=== PATIENT | male | born 1975 | race Caucasian/White ===

== ENCOUNTER 2020-08-30 07:51 | Outpatient (REF) | payer MEDICARE, MEDICAID, SELFPAY ==
[2020-08-30 09:14] LABS: MANUAL DIFF FLAG NO
[2020-08-30 09:19] LABS: Basophils Absolute Auto 0.1 X10*3/uL (0.0-0.2); Basophils Percent Auto 0.7 % (0-2); Eosinophils Absolute Auto 0.1 X10*3/uL (0.0-0.4); Eosinophils Percent Auto 1.4 % (0-4); Hematocrit 50.2 % (42-52); Hemoglobin 16.3 g/dl (14.0-18.0); Imm Gran Abs Auto 0.02 X10*3/uL (0.00-0.03); Imm Gran Pct Auto 0.2 % (0.0-0.4); Lymphocytes Absolute Auto 2.8 X10*3/uL (1.2-4.9); Lymphocytes Percent Auto 30.7 % (20-40); Mean Corpuscular HGB Conc 32.5 g/dl (31.0-36.0); Mean Corpuscular Hemoglobin 27.9 pg (27.0-33.0); Mean Platelet Volume 12.6 fL (9.4-12.4); Monocytes Absolute Auto 0.8 X10*3/uL (0.1-1.2); Monocytes Percent Auto 8.5 % (2-11); Neutrophils Absolute Auto 5.3 X10*3/uL (2.0-8.3); Neutrophils Percent Auto 58.5 % (45-73); Platelet Count 183 X10*3/uL (160-400); Red Blood Count 5.84 X10*6/uL (4.60-5.80); Red Cell Distribution Width 13.2 % (11.0-16.0)
[2020-08-30 10:02] LABS: Alanine Aminotransferase 30 U/L (0-40); Albumin Level 4.3 g/dL (3.5-5.0); Alkaline Phosphatase 76 U/L (39-117); Anion Gap 10 (12-20); Aspartate Amino Transferase 30 U/L (5-37); Bilirubin Total 0.6 mg/dL (0.0-1.0); Blood Urea Nitrogen 15 mg/dL (9-16); Calcium 9.3 mg/dL (8.4-10.2); Carbon Dioxide 30 mmol/L (22-29); Chloride 99 mmol/L (96-108); Cholesterol 222 mg/dL; Estimated Glomerular Filt Rate > 60; Glucose Fasting 91 mg/dL (60-99); HDL Cholesterol 49 mg/dL; LDL Cholesterol Calculated 140 mg/dl; Potassium 4.4 mmol/l (3.3-5.1); Sodium 135 mmol/L (135-145); Total Protein 7.4 g/dL (6.5-8.0); Triglycerides 169 mg/dL
[2020-08-30 10:23] LABS: T4 Thyroxine 9.3 ug/dL (4.5-12.0); Thyroid Stimulating Hormone 0.88 mIU/mL (0.32-4.0)
[2020-08-30 10:30] LABS: Folate 5.5 ng/mL (> or = 4.0); Vitamin B12 459 pg/mL (200-900)
== END 2020-08-30 07:52 | disposition home or self-care (01) ==
LOC: HO.LAB 07:51
PROVIDERS: PCP Internal Medicine; Visit Provider Internal Medicine
DX: E66.9 Obesity, unspecified (principal); K21.9 Gastro-esophageal reflux disease without esophagitis; G47.00 Insomnia, unspecified; M54.5 Low back pain; E78.00 Pure hypercholesterolemia, unspecified; R73.01 Impaired fasting glucose
CPT/HCPCS: 36415; 80053; 80061; 82607; 82746; 84436; 84443; 85025

== ENCOUNTER 2021-02-21 12:56 | Outpatient (REF) | payer OTHER, SELFPAY ==
--- NOTE | ~2021-02-21 | XR_ITS ---
EXAMINATION: XR HAND, LEFT CLINICAL INFORMATION: Left hand pain COMPARISON: None TECHNIQUE: PA, lateral, and oblique views of the left hand. FINDINGS: There is no evidence of acute fracture or dislocation of the left hand. There are some subchondral cysts seen about the first metacarpal head with some mild adjacent soft tissue swelling. No radiopaque foreign body is seen. Joint spaces are maintained. No significant erosive changes are evident. XR/XR hand LT min 3V IMPRESSION: No acute fracture or dislocation of the left hand. Mild degenerative change first metacarpal phalangeal joint.
== END 2021-02-21 12:57 | disposition home or self-care (01) ==
LOC: HO.HMGCX 12:56
PROVIDERS: PCP Internal Medicine; Visit Provider Hospitalist
DX: M79.642 Pain in left hand (principal)
CPT/HCPCS: 73130

== ENCOUNTER 2021-03-19 10:18 | Outpatient (REF) | payer OTHER, SELFPAY ==
--- NOTE | ~2021-03-19 | FL_ITS ---
EXAMINATION: XR GI SERIES and barium swallow CLINICAL INFORMATION: Gastroesophageal reflux disease COMPARISON: Previous upper GI October 2013 TECHNIQUE: Barium swallow was performed using thin and thick barium and effervescent granules. Barium tablet was also administered. Subsequently, upper GI was performed FINDINGS: The swallowing mechanism is normal. No aspiration or penetration is seen. There is a small sliding-type hiatal hernia with Schatzki ring. There is gastroesophageal reflux. No mass or stricture is seen. The barium tablet passed freely into the stomach. The stomach and duodenum are normal-appearing. No fold thickening, mass, ulcer or stricture is seen. FLUOROSCOPY TIME: 1.3 minutes DOSE AREA PRODUCT: 17 hood per centimeter squared. 37 saved fluoroscopic images. FL/FL upper GI w air w Ba Swallow IMPRESSION: Small sliding hiatal hernia with Schatzki ring. Moderate gastroesophageal reflux. Otherwise unremarkable barium swallow and upper GI.
== END 2021-03-19 10:19 | disposition home or self-care (01) ==
LOC: HO.XRAY 10:18
PROVIDERS: PCP Internal Medicine; Visit Provider Internal Medicine
DX: R13.10 Dysphagia, unspecified (principal)
CPT/HCPCS: 74240; 74246

== ENCOUNTER → 2021-09-27 10:54 | Outpatient (BNVA) | payer OTHER, MEDICARE, SELFPAY | PROVIDERS: Visit Provider Orthopaedic Surgery | DX: M76.61 Achilles tendinitis, right leg (principal); M76.62 Achilles tendinitis, left leg; Z98.890 Other specified postprocedural states | CPT/HCPCS: 99202 ==

== ENCOUNTER → 2021-10-21 09:58 | Outpatient (REF) | payer OTHER, MEDICARE, SELFPAY | LOC: HO.SL 09:58 | PROVIDERS: PCP Internal Medicine; Visit Provider Internal Medicine | DX: G47.00 Insomnia, unspecified (principal) | CPT/HCPCS: 95806 ==

== ENCOUNTER 2022-02-18 13:01 | Outpatient (REF) | payer OTHER, SELFPAY ==
[2022-02-18 13:32] LABS: MANUAL DIFF FLAG NO
[2022-02-18 13:48] LABS: Basophils Absolute Auto 0.1 X10*3/uL (0.0-0.2); Basophils Percent Auto 0.7 % (0-2); Eosinophils Absolute Auto 0.1 X10*3/uL (0.0-0.4); Eosinophils Percent Auto 1.2 % (0-4); Hematocrit 47.5 % (42.0-52.0); Hemoglobin 15.8 g/dl (14.0-18.0); Imm Gran Abs Auto 0.03 X10*3/uL (0.00-0.03); Imm Gran Pct Auto 0.3 % (0.0-0.4); Lymphocytes Absolute Auto 2.5 X10*3/uL (1.2-4.9); Lymphocytes Percent Auto 28.1 % (20-40); Mean Corpuscular HGB Conc 33.3 g/dl (31.0-36.0); Mean Corpuscular Hemoglobin 28.1 pg (27.0-33.0); Mean Corpuscular Volume 84.4 fL (80.0-98.0); Mean Platelet Volume 12.4 fL (9.4-12.4); Monocytes Absolute Auto 0.9 X10*3/uL (0.1-1.2); Neutrophils Absolute Auto 5.3 x10*3/uL (2.0-8.3); Neutrophils Percent Auto 59.7 % (45-73); Platelet Count 182 X10*3/uL (160-400); Red Blood Count 5.63 X10*6/uL (4.60-5.80); White Blood Count 8.9 X10*3/uL (4.8-10.8)
[2022-02-18 14:02] LABS: Estimated Average Glucose 123 mg/dL; Hemoglobin A1c % 5.9 %
[2022-02-18 14:27] LABS: Alanine Aminotransferase 31 U/L (0-40); Albumin Level 4.2 g/dL (3.5-5.0); Alkaline Phosphatase 88 U/L (39-117); Anion Gap 11 (12-20); Aspartate Amino Transferase 22 U/L (5-37); Bilirubin Total 0.5 mg/dL (0.0-1.0); Blood Urea Nitrogen 11 mg/dL (9-16); Carbon Dioxide 29 mmol/L (22-29); Chloride 103 mmol/L (96-108); Cholesterol 223 mg/dL; Estimated Glomerular Filt Rate 56; Glucose Random 122 mg/dL (60-115); HDL Cholesterol 46 mg/dL; LDL Cholesterol Calculated 147 mg/dl; Potassium 5.1 mmol/L (3.3-5.1); Sodium 138 mmol/L (135-145); Total Protein 7.5 g/dL (6.5-8.0); Triglycerides 153 mg/dL
[2022-02-18 14:49] LABS: Free T4 (Free Thyroxine) 1.13 ng/dL (0.71-1.85); Thyroid Stimulating Hormone 0.92 uIU/mL (0.32-4.0)
[2022-02-18 14:59] LABS: Vitamin B12 418 pg/mL (200-900)
== END 2022-02-18 13:02 | disposition home or self-care (01) ==
LOC: HO.LAB 13:01
PROVIDERS: PCP Internal Medicine; Visit Provider Internal Medicine
DX: E78.00 Pure hypercholesterolemia, unspecified (principal); R73.02 Impaired glucose tolerance (oral)
CPT/HCPCS: 36415; 80053; 80061; 82607; 82746; 83036; 84439; 84443; 85025

== ENCOUNTER → 2022-03-20 10:49 | Outpatient (BNVA) | payer OTHER, SELFPAY | PROVIDERS: PCP Internal Medicine; Visit Provider Nurse Practitioner Family | DX: G47.33 Obstructive sleep apnea (adult) (pediatric) (principal) | CPT/HCPCS: 99202 ==

== ENCOUNTER 2022-04-25 10:45 | Outpatient (REF) | payer OTHER, SELFPAY ==
--- NOTE | ~2022-04-25 | XR_ITS ---
EXAMINATION: XR CHEST CLINICAL INFORMATION: Cough. COMPARISON: None TECHNIQUE: 2 views of the chest were obtained. FINDINGS: No significant abnormality is noted involving the heart, lungs, mediastinum, bony thorax or soft tissues. XR/XR chest 2V IMPRESSION: Unremarkable chest examination.
== END 2022-04-25 10:46 | disposition home or self-care (01) ==
LOC: HO.XRAY 10:45
PROVIDERS: PCP Internal Medicine; Visit Provider Internal Medicine
DX: R05.9 Cough, unspecified (principal)
CPT/HCPCS: 71046

== ENCOUNTER → 2022-11-26 08:45 | Outpatient (BNVA) | payer OTHER, SELFPAY | PROVIDERS: PCP Internal Medicine; Visit Provider Nurse Practitioner Family | DX: G47.33 Obstructive sleep apnea (adult) (pediatric) (principal) | CPT/HCPCS: 99212 ==

== ENCOUNTER 2022-12-22 07:35 | Outpatient (REF) | payer OTHER, SELFPAY ==
[2022-12-22 07:45] LABS: MANUAL DIFF FLAG NO
[2022-12-22 08:25] LABS: Basophils Absolute Auto 0.1 X10*3/uL (0.0-0.2); Basophils Percent Auto 1.3 % (0-2); Eosinophils Absolute Auto 0.2 X10*3/uL (0.0-0.4); Eosinophils Percent Auto 2.4 % (0-4); Hematocrit 47.9 % (42.0-52.0); Hemoglobin 15.5 g/dl (14.0-18.0); Imm Gran Abs Auto 0.02 X10*3/uL (0.00-0.03); Imm Gran Pct Auto 0.3 % (0.0-0.4); Lymphocytes Absolute Auto 2.5 X10*3/uL (1.2-4.9); Lymphocytes Percent Auto 34.6 % (20-40); Mean Corpuscular HGB Conc 32.4 g/dl (31.0-36.0); Mean Corpuscular Hemoglobin 27.4 pg (27.0-33.0); Mean Corpuscular Volume 84.8 fL (80.0-98.0); Mean Platelet Volume 12.4 fL (9.4-12.4); Monocytes Absolute Auto 0.8 X10*3/uL (0.1-1.2); Monocytes Percent Auto 11.6 % (2-11); Neutrophils Absolute Auto 3.5 x10*3/uL (2.0-8.3); Neutrophils Percent Auto 49.8 % (45-73); Platelet Count 174 X10*3/uL (160-400); Red Blood Count 5.65 X10*6/uL (4.60-5.80); Red Cell Distribution Width 13.2 % (11.0-16.0); White Blood Count 7.1 X10*3/uL (4.8-10.8)
[2022-12-22 08:35] LABS: Estimated Average Glucose 126 mg/dL
[2022-12-22 08:59] LABS: Alanine Aminotransferase 45 U/L (0-40); Alkaline Phosphatase 77 U/L (39-117); Anion Gap 14 (12-20); Aspartate Amino Transferase 25 U/L (5-37); Bilirubin Total 0.3 mg/dL (0.0-1.0); Blood Urea Nitrogen 11 mg/dL (9-16); Calcium 9.6 mg/dL (8.4-10.2); Carbon Dioxide 28 mmol/L (22-29); Chloride 102 mmol/L (96-108); Cholesterol 219 mg/dL; Estimated Glomerular Filt Rate > 60; Glucose Random 99 mg/dL (60-115); HDL Cholesterol 47 mg/dL; LDL Cholesterol Calculated 139 mg/dl; Potassium 4.6 mmol/L (3.3-5.1); Sodium 139 mmol/L (135-145); Total Protein 6.8 g/dL (6.5-8.0); Triglycerides 169 mg/dL
[2022-12-22 09:20] LABS: Folate 15.1 ng/mL (> or = 4.0); Free T4 (Free Thyroxine) 1.04 ng/dL (0.71-1.85); Prostate Specific Antigen Scr 0.34 ng/mL (<0.05-4.0); Thyroid Stimulating Hormone 0.83 uIU/mL (0.32-4.0); Vitamin B12 655 pg/mL (200-900)
[2022-12-22 09:37] LABS: Appearance Urine Clear; Color Urine Yellow; Glucose Urine UA Negative (Negative); Leukocyte Esterase Urine Negative (Negative); Nitrite Urine Negative (Negative); PH 5.5 (5.0-9.0); Specific Gravity - Urine 1.015 (1.005-1.025); Urine Blood Negative (Negative); Urine Ketones Negative (Negative); Urine Protein Negative (Neg-Trace)
[2022-12-22 09:40] LABS: Bacteria Urine None Seen (None Seen); Hyaline Casts Urine 0-2 /LPF (0-2); RBC Urine 0-2 /HPF (0-2); Squamous Epithelial Cell Urine 0-2 /HPF (0-2); WBC Urine 0-5 /HPF (0-5)
== END 2022-12-22 07:36 | disposition home or self-care (01) ==
LOC: HO.LAB 07:35
PROVIDERS: PCP Internal Medicine; Visit Provider Internal Medicine
DX: Z12.5 Encounter for screening for malignant neoplasm of prostate (principal); N28.9 Disorder of kidney and ureter, unspecified; E78.00 Pure hypercholesterolemia, unspecified
CPT/HCPCS: 36415; 80053; 80061; 81001; 82607; 82746; 83036; 84153; 84439; 84443; 85025

== ENCOUNTER → 2022-12-30 11:36 | Outpatient (REF) | payer OTHER, SELFPAY ==
--- NOTE | ~2022-12-30 | XR_ITS ---
EXAMINATION: XR CHEST 2 VIEWS CLINICAL INFORMATION: Shortness of breath. COMPARISON: Chest radiograph dated 04/25/2022. TECHNIQUE: Frontal and lateral views of the chest were obtained. FINDINGS: The heart, great vessels, pulmonary vasculature and mediastinum are normal. The lungs show no focal infiltrate, effusion or pneumothorax. There is mild elevation of the right hemidiaphragm. There is no acute osseous abnormality. XR/XR chest 2V IMPRESSION: No active cardiopulmonary disease.
--- NOTE | 2022-12-30 11:39 | ECG_ITS ---
Test Reason : sob Blood Pressure : / mmHG Vent. Rate : 077 BPM Atrial Rate : 077 BPM P-R Int : 192 ms QRS Dur : 092 ms QT Int : 370 ms P-R-T Axes : 062 085 050 degrees QTc Int : 418 ms Normal sinus rhythm Normal ECG When compared with ECG of 08-APR-2017 16:08, No significant change was found Referred By: Noé Montaño Electronically Signed By:Aiden Street
== END ==
LOC: HO.CARD 11:36
PROVIDERS: PCP Internal Medicine; Visit Provider Internal Medicine
DX: R06.02 Shortness of breath (principal)
CPT/HCPCS: 71046; 93005

== ENCOUNTER → 2023-01-14 08:53 | Outpatient (REF) | payer OTHER, SELFPAY ==
--- NOTE | 2023-01-14 08:56 | CA_ITS ---
Acquisition Time: 2023-01-14 09:33:25 Total Exercise Time: 00:10:46 Test Indications: sob Medications: see h Protocol: JAGDEEP Max HR: 155 BPM 88% of Pred: 175 BPM Max BP: 162/088 mmHG Max Work Load: 10.6 METS Exercise stress test using Jagdeep protocol., machine stopped and test was fisnished using Manual Jagdeep protocol. METS 10.60 and TAPHR 88 % Pt tolerated well, reports SOB at the end of the exercise, no Chest pain. EKG without arrhythmias, no ischemic changes seen during exercise or edgar recovery. Normotensive response to exercise. Test reviewed with Dr. Mejia. Referred By: Noé Montaño Overread By: Leticia Mohan NP
== END ==
LOC: HO.CARD 08:53
PROVIDERS: PCP Internal Medicine; Visit Provider Internal Medicine
DX: R06.02 Shortness of breath (principal)
CPT/HCPCS: 93017

== ENCOUNTER → 2023-02-25 09:32 | Outpatient (BNVA) | payer OTHER, SELFPAY | PROVIDERS: PCP Internal Medicine; Visit Provider Nurse Practitioner Family | DX: G47.33 Obstructive sleep apnea (adult) (pediatric) (principal) | CPT/HCPCS: 99212 ==

== ENCOUNTER 2023-05-28 11:48 | Outpatient (AMB) | payer OTHER, SELFPAY ==
--- NOTE | 2023-05-28 14:14 | MHC.OFFWIV ---
Intake Vital Signs 05/28/23 14:17 BP 120/90 H Blood Pressure Location Rt brachial Position Sitting Pulse 74 Pulse Source Pulse Oximeter Temp 98.1 F Temp Source Oral Pulse Oximetry (%) 98 Oxygen Delivery Method Room Air Intake Visit Reasons: EP ear pain Intake Note: Patient here for real bad ear pain that started last . He took some antibiotics that he had at home which was amoxicillin-clav twice a day he feels like its helped a bit but is out of it now. Patient Tobacco Use Status: Former Tobacco user Allergies milk Adverse Reaction (Mild, Verified 05/28/23 14:17) Heartburn, Diarrhea Do you need a note to return to daycare/school/sports/work: No HPI HPI Comments History of Present Illness Details 1436 48-year-old male presents with R ear pain for the past week, patient reports pain is severe, constant, slightly improving however he found Augmentin at home has been taking 2 a day for the past 4-5 days days, ran out of antibiotics or for decided to come in for treatment. Patient denies fevers, chills, chest pain, shortness of breath, nausea, vomiting, headache, vision changes, dizziness, sore throat, cough, recent sick contacts. No recent swimming. Physical exam with an erythematous ear canal and tympanic membrane bilaterally R>L. Mild pain with manipulation of external ear on R normal on left . No mastoid tenderness. This is likely otitis media, no signs of otitis externa, mastoiditis, malignant otitis, necrotizing infection. Plan discharged on antibiotics. Advised him to not take antibiotics and he finds at home. Educated patient on diagnosis and treatment plan, answered all question, patient verbalizes understanding. At this time patient will be discharged home, advised to return with new or worsening symptoms. Educated on worrisome signs and symptoms and when to return. At this time I feel comfortable discharge home. [facility], [facility] Medical History Colon cancer screening GERD (gastroesophageal reflux disease) Hypercholesterolemia Impaired glucose tolerance Insomnia Lumbar herniated disc Obesity (BMI 30-39.9) Surgical History H/O shoulder surgery History of arthroscopy of left knee History of laminectomy Family History Father No problems noted. Mother No problems noted. Maternal Uncle Prostate cancer CAD (coronary artery disease) Family/Other High cholesterol Diabetes Social History Housing: Apartment Alcohol intake: current Alcohol intake frequency: a few times a month Patient Tobacco Use Status: Former Tobacco user Tobacco use type: Cigarette Years Smoked: stopped 18years old e-Cigarette/Vaping Use: Never Used Second Hand Smoke Exposure: No service: No Current occupational status: employed Cognitive needs: No Hearing needs: No Vision needs: No Review of Systems Const Details: Constitutional : No Weight loss, No Fever, No Chills, No Fatigue, No Malaise ENT/Mouth : No sore throat, No Rhinorrhea, + ear pain Eyes: No Eye Pain, No Swelling, No Redness Cardiovascular : No Chest Pain, No SOB, No Dyspnea on Exertion, No Orthopnea, No Edema, No Palpitations Respiratory : No Cough, No Sputum, No Wheezing Gastrointestinal : No Nausea, No Vomiting, No Diarrhea, No Constipation, No abdominal Pain, No Hematochezia, No Melena Genitourinary : No Dysuria, No Urinary Frequency, No Hematuria, Musculoskeletal : No joint pain, No Myalgias, No Joint Swelling Skin : No Skin Lesions, No rash Neuro : No Weakness, No Numbness, No Dizziness, No Headache Psych : No Anxiety/Panic, No Depression All other systems reviewed and are negative All systems reviewed & are unremarkable except as noted in HPI and below Physical Exam Vital Signs: Last Vital Signs Temp 98.1 F 05/28/23 14:17 Pulse 74 05/28/23 14:17 BP 120/90 H 05/28/23 14:17 Pulse Ox 98 05/28/23 14:17 Oxygen Delivery Method Room Air 05/28/23 14:17 Vital signs stable Appearance: Alert.? Oriented X3.? No acute distress.? Head: Normocephalic, atraumatic, no step-offs or deformities Eyes: Pupils equal, round and reactive to light.? ENT: Pharynx normal.?erythematous ear canal and tympanic membrane bilaterally. Mild pain with manipulation of external ear on R normal on left . No mastoid tenderness. Neck: Normal inspection.? Neck supple.? CVS: Normal heart rate and rhythm.? Pulses normal.? Respiratory: No respiratory distress.? Breath sounds normal.? Abdomen: Soft and nontender.? Skin: Skin warm and dry.? Normal skin color.? Normal skin turgor.? Extremities: No lower extremity edema.? No calf ttp. 5/5 strength to bilateral upper and lower extremities Neuro: Oriented X 3.? No motor deficit.? No sensory deficit. CN 2-12 intact Assessment & Plan Assessment & Plan (1) Otitis media: Code(s): H66.90 - Otitis media, unspecified, unspecified ear Plan Take your medications as prescribed. If you were prescribed antibiotics today, it is important that you take your medication to their entirety, do not skip any doses, do not finish them early. Follow-up with your primary care provider this week. Return to the emergency department with new or worsening symptoms. Such as fevers, chills, chest pain, shortness of breath, nausea, vomiting, dizziness, headache, vision changes, lethargy In case of emergency call 911 Medications: New amoxicillin-pot clavulanate 875-125 mg 1 tab PO BID 12 tabs 0RF 6 days ciprofloxacin-dexamethasone 0.3-0.1 % (Ciprodex) 4 drps otic (ears) BID 7.5 mL 0RF 7 days Coding Level of Care Code Est Pt Level 3 (42127) Diagnoses Otitis media H66.90
[2023-05-28 14:17] VITALS: BP 120/90; PULSE 74; TEMP 36.7; O2SAT 98
== END 2023-05-28 16:36 | disposition home or self-care (01) ==
PROVIDERS: PCP Internal Medicine; Visit Provider Physician Assistant
DX: H66.90 Otitis media, unspecified, unspecified ear (principal)
CPT/HCPCS: 99213

== ENCOUNTER 2023-06-16 10:06 | Outpatient (AMB) | payer OTHER, SELFPAY ==
--- NOTE | 2023-06-16 11:35 | AM.OFFWIN_ITS ---
Intake Vital Signs 06/16/23 11:36 Height 6 ft BP 126/72 Blood Pressure Location Rt brachial Position Sitting Pulse 70 Pulse Source Pulse Oximeter Temp 96.9 F Temp Source Temporal Artery Scan Pulse Oximetry (%) 97 Oxygen Delivery Method Room Air Intake Visit Reasons: EP RT Ear Intake Note: Pt is here c/o right ear discomfort. Pt states he was given antibiotics on 05/28 and states he is still having pain. Patient Tobacco Use Status: Former Tobacco user Allergies milk Adverse Reaction (Mild, Verified 06/17/23 10:12) Heartburn, Diarrhea Medication List - Last Reconciled 06/17/23 by Tarun Hamm MD acetaminophen 325 mg PO BID PRN amoxicillin-pot clavulanate 875-125 mg 1 tab PO BID 6 days [AUTOPAP 6-20 cm H20 humidified Air As directed] ciprofloxacin-dexamethasone 0.3-0.1 % (Ciprodex) 4 drps otic (ears) BID 7 days fluticasone propionate 50 mcg/actuation 1 spray intranasal DAILY omeprazole 20 mg PO DAILY oxycodone-acetaminophen 5-325 mg (Percocet) 1 tab PO .bid PRN 28 days tizanidine 4 mg PO DAILY zolpidem 5 mg PO BEDTIME PRN Do you need a note to return to daycare/school/sports/work: No HPI EP RT Ear HPI Details 48-year-old male presents to the office for a sick visit. Patient is reporting that he is unable to hear from the right ear. [facility] Medical History Colon cancer screening GERD (gastroesophageal reflux disease) Hypercholesterolemia Impaired glucose tolerance Insomnia Lumbar herniated disc Obesity (BMI 30-39.9) Surgical History H/O shoulder surgery History of arthroscopy of left knee History of laminectomy Family History Father No problems noted. Mother No problems noted. Maternal Uncle Prostate cancer CAD (coronary artery disease) Family/Other High cholesterol Diabetes Social History Housing: Apartment Alcohol intake: current Alcohol intake frequency: a few times a month Patient Tobacco Use Status: Former Tobacco user Tobacco use type: Cigarette Years Smoked: stopped 18years old e-Cigarette/Vaping Use: Never Used Second Hand Smoke Exposure: No service: No Current occupational status: employed Cognitive needs: No Hearing needs: No Vision needs: No Physical Exam Vital Signs: Last Vital Signs Temp 96.9 F 06/16/23 11:36 Pulse 70 06/16/23 11:36 BP 126/72 06/16/23 11:36 Pulse Ox 97 06/16/23 11:36 Oxygen Delivery Method Room Air 06/16/23 11:36 HEENT Other: Right ear: Wax present. Tympanic membrane not visualized. Office Procedures Cerumen Removal From which ear canal was the cerumen removed: right Removal: irrigation and otoscope w/curette Notes: patient tolerated procedure well [id number] Wax Removal by Spoon/Curette Assessment & Plan Assessment & Plan Orders: Orders AMB Cerumen Removal 06/16/23 H61.21 - Impacted cerumen, right ear Coding Level of Care Code Est Pt Level 3 (46336) Diagnoses CPT Codes Office Procedure - CPT: 02059-Qhi Wax Removal by Spoon/Curette ([id number])
[2023-06-16 11:36] VITALS: BP 126/72; PULSE 70; TEMP 36.1; O2SAT 97
== END 2023-06-16 16:15 | disposition home or self-care (01) ==
PROVIDERS: PCP Internal Medicine; Visit Provider Internal Medicine
DX: H61.21 Impacted cerumen, right ear (principal)
CPT/HCPCS: 69210; 99213

== ENCOUNTER 2023-07-21 09:34 | Outpatient (AMB) | payer OTHER, SELFPAY ==
[2023-07-21 09:37] VITALS: BP 134/72; PULSE 67; O2SAT 98; BMI 36.9
--- NOTE | 2023-07-21 09:37 | A.OFFPC_ITS ---
Vital Signs 07/21/23 09:37 Height 6 ft Weight 272 lb BMI 36.9 BP 134/72 Blood Pressure Location Lt brachial Position Sitting Pulse 67 Pulse Source Pulse Oximeter Pulse Oximetry (%) 98 Oxygen Delivery Method Room Air Intake Visit Reasons: LBP Allergies milk Adverse Reaction (Mild, Verified 07/21/23 09:38) Heartburn, Diarrhea Medication List - Last Reconciled 07/21/23 by Noé Montaño MD acetaminophen 325 mg PO BID PRN [AUTOPAP 6-20 cm H20 humidified Air As directed] fluticasone propionate 50 mcg/actuation 1 spray intranasal DAILY omeprazole 20 mg PO DAILY oxycodone-acetaminophen 5-325 mg (Percocet) 1 tab PO .bid PRN 28 days tizanidine 4 mg PO DAILY zolpidem 5 mg PO BEDTIME PRN Tobacco use date assessed: 12/30/22 Dental Screening Dental Screen Date: 07/21/23 Did you have a dental visit in the last 12 months?: Yes Did you have a dental problem in the last 6 months where you did not have access to dental care?: No Was dental information given to patient?: Patient has dentist HPI LBP HPI Details 48-year-old obese male with obstructive sleep apnea hypercholesterolemia impaired glucose tolerance and a history of lumbar herniated disc on narcotic pain medication coming in for follow-up. Last seen i march and blood work was requested patient is here for follow-up. Review of the notes had earwax removal in June 2023. Patient also was seen by the bariatric trick surgeon May 2023 advised geoscientist. [facility]LY [facility] Medical History Colon cancer screening GERD (gastroesophageal reflux disease) Hypercholesterolemia Impaired glucose tolerance Insomnia Lumbar herniated disc Obesity (BMI 30-39.9) Surgical History H/O shoulder surgery History of arthroscopy of left knee History of laminectomy Family History Father No problems noted. Mother No problems noted. Maternal Uncle Prostate cancer CAD (coronary artery disease) Family/Other High cholesterol Diabetes Social History Housing: Apartment Alcohol intake: current Alcohol intake frequency: a few times a month Patient Tobacco Use Status: Former Tobacco user Tobacco use type: Cigarette Years Smoked: stopped 18years old e-Cigarette/Vaping Use: Never Used Second Hand Smoke Exposure: No service: No Current occupational status: employed Cognitive needs: No Hearing needs: No Vision needs: No Questionnaire PHQ-9 Over the last 2 weeks, how often have you been bothered by any of the following problems? 1. Little interest or pleasure in doing things: not at all 2. Feeling down, depressed, or hopeless: not at all 3. Trouble falling or staying asleep, or sleeping too much: not at all 4. Feeling tired or having little energy: not at all 5. Poor appetite or overeating: not at all 6. Feeling bad about yourself - or that you are a failure or have let yourself or your family down: not at all 7. Trouble concentrating on things, such as reading the newspaper or watching television: not at all 8. Moving or speaking so slowly that other people could have noticed. Or the opposite - being so fidgety or restless that you have been moving around a lot more than usual: not at all 9. Thoughts that you would be better off or of hurting yourself in some way: not at all Total score: 0 Depression Screening Interpretation: Negative Source: Developed by Drs. Jose Luis Campbell, Kathrin Biggs, Jaylen Ortiz and colleagues, with an educational raymond from [employer]. Thrive Questionnaire Date Thrive assessed: 12/30/22 AUDIT C Alcohol Use Questionnaire (AUDIT-C) 1. How often do you have a drink containing alcohol?: 2-4 times a month 2. How many drinks containing alcohol do you have on a typical day when you are drinking?: 3 or 4 3. How often do you have six or more drinks on one occasion?: Never Total Score: 3 CAITLIN-7 AMB Questionnaire CAITLIN-7 Date CAITLIN - 7 assessed: 12/30/22 Source: Developed by Drs. Jose Luis Campbell, Kathrin Biggs, Jaylen Ortiz and colleagues, with an educational raymond from [employer]. Physical exam (Primary Care) Vital Signs: Last Vital Signs Pulse 67 07/21/23 09:37 BP 134/72 07/21/23 09:37 Pulse Ox 98 07/21/23 09:37 Oxygen Delivery Method Room Air 07/21/23 09:37 BMI result Body Mass Index 36.9 Tobacco/Smoking Status: Tobacco use Status Tobacco use date assessed 12/30/22 07/21/23 09:43 Patient Tobacco Use Status Former Tobacco user 07/21/23 09:43 Tobacco use type Cigarette 07/21/23 09:43 e-Cigarette/Vaping Use Never Used 07/21/23 09:43 PHQ-9: PHQ-9 Score PHQ-9: Total score 0 07/21/23 09:43 Depression Screening Interpretation: Negative Thrive Assessment: Date of Thrive Assessment Date Thrive assessed 12/30/22 07/21/23 09:43 Const General: alert; No acute distress Eyes Conjunctivae: conjunctivae normal Resp Auscultation: clear to auscultation bilaterally Cardio Rate: regular rate Rhythm: regular rhythm GI Inspection: Yes normal to inspection Extrem General: Yes normal to inspection and No edema Assessment and Plan Assessment & Plan (1) Colon cancer screening: Code(s): Z12.11 - Encounter for screening for malignant neoplasm of colon Plan: Reminded about colonoscopy (2) Obstructive sleep apnea (adult) (pediatric): Comment: CPAP, cannot tolerate CPAP Code(s): G47.33 - Obstructive sleep apnea (adult) (pediatric) Plan: cannot tolerate CPAP (3) Obesity (BMI 30-39.9): Code(s): E66.9 - Obesity, unspecified Plan: Diet and exercise patient has met with the bariatric surgeon. Dr. Mercedes norman (4) Lumbar herniated disc: Comment: L5-S1 broad-based herniated disc Dr. Alberts 06/06/2010, work related Code(s): M51.26 - Other intervertebral disc displacement, lumbar region Plan: Narcotic pain meds: Is being prescribed with the understanding that these medications are potentially addictive and should be used only when absolutely necessary and must always be secured. Any remaining pills should be safely disposed off appropriately. Patient is advised that narcotics can impaired judgment and one should not drive or operate heavy machinery while taking these medications. Never share these medications with anybody and do not leave them unattended. They will not be replaced under any circumstances. (5) Impaired glucose tolerance: Code(s): R73.02 - Impaired glucose tolerance (oral) Plan: Decrease the amount of carbohydrate intake, pasta, bread, rice and potatoes are all sugar and that is aside from all the sweet stuff, remember that fruits are good but they are Sweet also. Patient has been requested to have blood work Coding Level of Care Code Est Pt Level 4 (89411) Diagnoses Colon cancer screening Z12.11 Obstructive sleep apnea (adult) (pediatric) G47.33 Obesity (BMI 30-39.9) E66.9 Lumbar herniated disc M51.26 Impaired glucose tolerance R73.02
== END 2023-07-21 10:24 | disposition home or self-care (01) ==
PROVIDERS: Visit Provider Internal Medicine
DX: G47.33 Obstructive sleep apnea (adult) (pediatric) (principal); M51.26 Other intervertebral disc displacement, lumbar region; E66.9 Obesity, unspecified; Z68.36 Body mass index [BMI] 36.0-36.9, adult; R73.02 Impaired glucose tolerance (oral)
CPT/HCPCS: 99214

== ENCOUNTER 2023-07-24 07:52 | Outpatient (REF) | payer OTHER, SELFPAY ==
[2023-07-24 08:41] LABS: Estimated Average Glucose 120 mg/dL; Hemoglobin A1c % 5.8 % (<6.0)
[2023-07-24 09:04] LABS: Alanine Aminotransferase 28 U/L (0-40); Albumin Level 4.3 g/dL (3.5-5.0); Alkaline Phosphatase 70 U/L (39-117); Anion Gap 11 (12-20); Aspartate Amino Transferase 26 U/L (5-37); Bilirubin Total 0.5 mg/dL (0.0-1.0); Blood Urea Nitrogen 13 mg/dL (9-16); Carbon Dioxide 28 mmol/L (22-29); Chloride 104 mmol/L (96-108); Cholesterol 237 mg/dL (<200); Estimated Glomerular Filt Rate 58; Glucose Random 112 mg/dL (60-115); HDL Cholesterol 47 mg/dL (>40); LDL Cholesterol Calculated 155 mg/dL (<100); Potassium 4.4 mmol/L (3.3-5.1); Sodium 139 mmol/L (135-145); Total Protein 7.8 g/dL (6.5-8.0); Triglycerides 175 mg/dL (<150)
== END 2023-07-24 07:53 | disposition home or self-care (01) ==
LOC: HO.LAB 07:52
PROVIDERS: PCP Internal Medicine; Visit Provider Internal Medicine
DX: R73.02 Impaired glucose tolerance (oral) (principal); E78.00 Pure hypercholesterolemia, unspecified
CPT/HCPCS: 36415; 80053; 80061; 83036

== ENCOUNTER 2023-10-29 10:35 | Outpatient (AMB) | payer OTHER, SELFPAY ==
[2023-10-29 10:38] VITALS: BP 116/60; PULSE 70; O2SAT 96; BMI 36.9
--- NOTE | 2023-10-29 10:38 | MHC.PC.OV ---
Vital Signs 10/29/23 10:38 Height 6 ft Weight 272 lb BMI 36.9 BP 116/60 Blood Pressure Location Lt brachial Position Sitting Pulse 70 Pulse Source Pulse Oximeter Pulse Oximetry (%) 96 Oxygen Delivery Method Room Air Intake Visit Reasons: IGT, Lumbar DDD Educational Director Required: No Accompanied by: Self / Same As Patient Allergies milk Adverse Reaction (Mild, Verified 10/29/23 10:38) Heartburn, Diarrhea Medication List - Last Reconciled 10/29/23 by Noé Montaño MD acetaminophen 325 mg PO BID PRN fluticasone propionate 50 mcg/actuation 1 spray intranasal DAILY omeprazole 20 mg PO DAILY oxycodone-acetaminophen 5-325 mg (Percocet) 1 tab PO .bid PRN 28 days tizanidine 4 mg PO DAILY zolpidem 5 mg PO BEDTIME PRN Tobacco use date assessed: 12/30/22 Dental Screening Dental Screen Date: 10/29/23 Did you have a dental visit in the last 12 months?: No Did you have a dental problem in the last 6 months where you did not have access to dental care?: No Was dental information given to patient?: Patient has dentist HPI IGT, Lumbar DDD HPI Details [age] Year old obese male with herniated disc on narcotic pain medication patient also has a history of impaired glucose tolerance. Blood work requested. Last seen in July 2023. blood work discussed. has not heard anything about referral to [facility]? also cannot tolerate CPAP [facility], [facility] Medical History Colon cancer screening GERD (gastroesophageal reflux disease) Hypercholesterolemia Impaired glucose tolerance Insomnia Lumbar herniated disc Obesity (BMI 30-39.9) Surgical History History of laminectomy History of arthroscopy of left knee H/O shoulder surgery Family History Father No problems noted. Mother No problems noted. Maternal Uncle Prostate cancer CAD (coronary artery disease) Family/Other High cholesterol Diabetes Social History Housing: Apartment Alcohol intake: current Alcohol intake frequency: a few times a month Patient Tobacco Use Status: Former Tobacco user Tobacco use type: Cigarette Years Smoked: stopped 18years old e-Cigarette/Vaping Use: Never Used Second Hand Smoke Exposure: No service: No Current occupational status: employed Cognitive needs: No Hearing needs: No Vision needs: No Questionnaire Thrive Questionnaire Date Thrive assessed: 12/30/22 CAITLIN-7 AMB Questionnaire CAITLIN-7 Date CAITLIN - 7 assessed: 12/30/22 Source: Developed by Drs. Jose Luis Campbell, Kathrin Biggs, Jaylen Ortiz and colleagues, with an educational raymond from [employer]. Physical exam (Primary Care) Vital Signs: Last Vital Signs Pulse 70 10/29/23 10:38 BP 116/60 10/29/23 10:38 Pulse Ox 96 10/29/23 10:38 Oxygen Delivery Method Room Air 10/29/23 10:38 BMI result Body Mass Index 36.9 Tobacco/Smoking Status: Tobacco use Status Tobacco use date assessed 12/30/22 10/29/23 10:45 Patient Tobacco Use Status Former Tobacco user 10/29/23 10:45 Tobacco use type Cigarette 10/29/23 10:45 e-Cigarette/Vaping Use Never Used 10/29/23 10:45 Thrive Assessment: Date of Thrive Assessment Date Thrive assessed 12/30/22 10/29/23 10:45 Const General: alert; No acute distress Eyes Conjunctivae: conjunctivae normal Resp Auscultation: clear to auscultation bilaterally Cardio Rate: regular rate Rhythm: regular rhythm GI Inspection: Yes normal to inspection Extrem General: Yes normal to inspection and No edema Assessment and Plan Assessment & Plan (1) Obstructive sleep apnea (adult) (pediatric): Comment: CPAP, cannot tolerate CPAP (10/2024) Code(s): G47.33 - Obstructive sleep apnea (adult) (pediatric) Plan: Cannot tolerate CPAP- need to loose weight (2) Lumbar herniated disc: Comment: L5-S1 broad-based herniated disc Dr. Alberts 06/06/2010, work related Code(s): M51.26 - Other intervertebral disc displacement, lumbar region Plan: Narcotic pain meds: Is being prescribed with the understanding that these medications are potentially addictive and should be used only when absolutely necessary and must always be secured. Any remaining pills should be safely disposed off appropriately. Patient is advised that narcotics can impaired judgment and one should not drive or operate heavy machinery while taking these medications. Never share these medications with anybody and do not leave them unattended. They will not be replaced under any circumstances. (3) Hypercholesterolemia: Code(s): E78.00 - Pure hypercholesterolemia, unspecified Plan: Avoid fried foods, chicken skin, eggs, butter margarine, pastries and meat. Be it pork or beef they have a lot of cholesterol LDL goal of less than 130 and triglyceride of less than 150 decline med for now and will retest (4) GERD (gastroesophageal reflux disease): Code(s): K21.9 - Gastro-esophageal reflux disease without esophagitis Qualifiers: Esophagitis presence: without esophagitis Qualified Code(s): K21.9 - Gastro-esophageal reflux disease without esophagitis Plan: Avoid the foods that causes that usually spicy foods, tomato products, juices, coffee, soda and foods that your sensitive to. After eating do not lie down, allow 3-4 hours before in lie down. And keep the head of bed above 30 degrees to avoid the acid from going up. (5) Impaired glucose tolerance: Code(s): R73.02 - Impaired glucose tolerance (oral) Plan: Decrease the amount of carbohydrate intake, pasta, bread, rice and potatoes are all sugar and that is aside from all the sweet stuff, remember that fruits are good but they are Sweet also. Orders: Orders Hemoglobin A1c 3 Months E78.00 - Pure hypercholesterolemia, unspecified Comprehensive Met. Panel 3 Months E78.00 - Pure hypercholesterolemia, unspecified Lipid Panel 3 Months E78.00 - Pure hypercholesterolemia, unspecified Coding Level of Care Code Est Pt Level 4 (33705) Diagnoses Obstructive sleep apnea (adult) (pediatric) G47.33 Lumbar herniated disc M51.26 Hypercholesterolemia E78.00 Gastroesophageal reflux disease without esophagitis K21.9 Esophagitis presence: without esophagitis Impaired glucose tolerance R73.02
== END 2023-10-29 11:34 | disposition home or self-care (01) ==
PROVIDERS: PCP Internal Medicine; Visit Provider Internal Medicine
DX: G47.33 Obstructive sleep apnea (adult) (pediatric) (principal); M51.26 Other intervertebral disc displacement, lumbar region; E78.00 Pure hypercholesterolemia, unspecified; K21.9 Gastro-esophageal reflux disease without esophagitis; R73.02 Impaired glucose tolerance (oral)
CPT/HCPCS: 99214

== ENCOUNTER 2024-02-04 09:55 | Outpatient (AMB) | payer OTHER, SELFPAY ==
[2024-02-04 09:57] VITALS: BP 110/90; PULSE 89; O2SAT 99; BMI 36.6
--- NOTE | 2024-02-04 09:57 | A.OFFPC_ITS ---
Vital Signs 02/04/24 09:57 Height 6 ft Weight 270 lb 0.6 oz BMI 36.6 BP 110/90 H Blood Pressure Location Lt brachial Position Sitting Pulse 89 Pulse Source Pulse Oximeter Temp Source Skin Pulse Oximetry (%) 99 Oxygen Delivery Method Room Air Intake Visit Reasons: 3 month follow up Intake Note: Patient is here to follow up on 3 months Behavioral Health Technician Required: No Allergies milk Adverse Reaction (Mild, Verified 02/04/24 10:01) Heartburn, Diarrhea Tobacco use date assessed: 02/04/24 Dental Screening Dental Screen Date: 02/04/24 HPI 3 month follow up HPI Details 49-year-old obese male with a history of herniated disc lumbar on narcotic pain medication obstructive sleep apnea but can not tolerate CPAP hypercholesterolemia GERD impaired glucose tolerance last seen in October 2023. Patient is here for follow-up. [facility] Medical History Colon cancer screening GERD (gastroesophageal reflux disease) Hypercholesterolemia Impaired glucose tolerance Insomnia Lumbar herniated disc Obesity (BMI 30-39.9) Surgical History History of laminectomy History of arthroscopy of left knee H/O shoulder surgery Family History Father No problems noted. Mother No problems noted. Maternal Uncle Prostate cancer CAD (coronary artery disease) Family/Other High cholesterol Diabetes Social History Housing: Apartment Alcohol intake: current Alcohol intake frequency: a few times a month Patient Tobacco Use Status: Former Tobacco user Tobacco use type: Cigarette Years Smoked: stopped 18years old e-Cigarette/Vaping Use: Never Used Second Hand Smoke Exposure: No service: No Current occupational status: employed Cognitive needs: No Hearing needs: No Vision needs: No Questionnaire Thrive Questionnaire Date Thrive assessed: 02/04/24 AUDIT C Alcohol Use Questionnaire (AUDIT-C) 1. How often do you have a drink containing alcohol?: 2-4 times a month 2. How many drinks containing alcohol do you have on a typical day when you are drinking?: 3 or 4 3. How often do you have six or more drinks on one occasion?: Never Total Score: 3 CAITLIN-7 AMB Questionnaire CAITLIN-7 Date CAITLIN - 7 assessed: 02/04/24 Source: Developed by Drs. Jose Luis Campbell, Kathrin Biggs, Jaylen Ortiz and colleagues, with an educational raymond from [employer]. Physical exam (Primary Care) Vital Signs: Last Vital Signs Pulse 89 02/04/24 09:57 BP 110/90 H 02/04/24 09:57 Pulse Ox 99 02/04/24 09:57 Oxygen Delivery Method Room Air 02/04/24 09:57 BMI result Body Mass Index 36.6 Tobacco/Smoking Status: Tobacco use Status Tobacco use date assessed 02/04/24 02/04/24 09:58 Patient Tobacco Use Status Former Tobacco user 02/04/24 09:58 Tobacco use type Cigarette 02/04/24 09:58 e-Cigarette/Vaping Use Never Used 02/04/24 09:58 Thrive Assessment: Date of Thrive Assessment Date Thrive assessed 02/04/24 02/04/24 09:58 Const General: alert; No acute distress Eyes Conjunctivae: conjunctivae normal Resp Auscultation: clear to auscultation bilaterally Cardio Rate: regular rate Rhythm: regular rhythm GI Inspection: Yes normal to inspection Extrem General: Yes normal to inspection and No edema Assessment and Plan Assessment & Plan (1) Obesity (BMI 30-39.9): Code(s): E66.9 - Obesity, unspecified Plan: Diet and exercise (2) Lumbar herniated disc: Comment: L5-S1 broad-based herniated disc Dr. Alberts 06/06/2010, work related Code(s): M51.26 - Other intervertebral disc displacement, lumbar region Plan: Narcotic pain meds: Is being prescribed with the understanding that these medications are potentially addictive and should be used only when absolutely necessary and must always be secured. Any remaining pills should be safely disposed off appropriately. Patient is advised that narcotics can impaired judgment and one should not drive or operate heavy machinery while taking these medications. Never share these medications with anybody and do not leave them unattended. They will not be replaced under any circumstances. (3) Impaired glucose tolerance: Code(s): R73.02 - Impaired glucose tolerance (oral) Plan: Decrease the amount of carbohydrate intake, pasta, bread, rice and potatoes are all sugar and that is aside from all the sweet stuff, remember that fruits are good but they are Sweet also. (4) Hypercholesterolemia: Code(s): E78.00 - Pure hypercholesterolemia, unspecified Plan: Avoid fried foods, chicken skin, eggs, butter margarine, pastries and meat. Be it pork or beef they have a lot of cholesterol LDL goal of less than 130 and triglyceride of less than 150 (5) GERD (gastroesophageal reflux disease): Code(s): K21.9 - Gastro-esophageal reflux disease without esophagitis Qualifiers: Esophagitis presence: without esophagitis Qualified Code(s): K21.9 - Gastro-esophageal reflux disease without esophagitis Plan: Avoid the foods that causes that usually spicy foods, tomato products, juices, coffee, soda and foods that your sensitive to. After eating do not lie down, allow 3-4 hours before in lie down. And keep the head of bed above 30 degrees to avoid the acid from going up. (6) Obstructive sleep apnea (adult) (pediatric): Comment: CPAP, cannot tolerate CPAP (10/2024) Code(s): G47.33 - Obstructive sleep apnea (adult) (pediatric) Plan: Discussed importance of sleep apnea and the need for the patient to lose the weight as he can not tolerate the CPAP (7) Renal insufficiency: Code(s): N28.9 - Disorder of kidney and ureter, unspecified Plan: Will continue to monitor and avoid NSAIDs referral to Nephrology and advised blood work to do (8) Colon cancer screening: Code(s): Z12.11 - Encounter for screening for malignant neoplasm of colon Plan: Reminded about colonoscopy. (9) Hypertension: Code(s): I10 - Essential (primary) hypertension Plan: Continue with blood pressure medication. Decrease salt intake and exercise Orders: Referrals Nephrology Referral N28.9 - Disorder of kidney and ureter, unspecified Medications: New hydrochlorothiazide 12.5 mg PO DAILY 30 tabs 4RF I10 - Essential (primary) hypertension Refilled oxycodone-acetaminophen 5-325 mg (Percocet) 1 tab PO .bid 28 days PRN 56 tabs 0RF pain M51.26 - Other intervertebral disc displacement, lumbar region Coding Level of Care Code Est Pt Level 4 (53849) Diagnoses Obesity (BMI 30-39.9) E66.9 Lumbar herniated disc M51.26 Impaired glucose tolerance R73.02 Hypercholesterolemia E78.00 Gastroesophageal reflux disease without esophagitis K21.9 Esophagitis presence: without esophagitis Obstructive sleep apnea (adult) (pediatric) G47.33 Renal insufficiency N28.9 Colon cancer screening Z12.11 Hypertension I10
== END 2024-02-04 10:23 | disposition home or self-care (01) ==
PROVIDERS: PCP Internal Medicine; Visit Provider Internal Medicine
DX: M51.26 Other intervertebral disc displacement, lumbar region (principal); R73.02 Impaired glucose tolerance (oral); E66.9 Obesity, unspecified; Z68.36 Body mass index [BMI] 36.0-36.9, adult; E78.00 Pure hypercholesterolemia, unspecified; K21.9 Gastro-esophageal reflux disease without esophagitis; G47.33 Obstructive sleep apnea (adult) (pediatric); N28.9 Disorder of kidney and ureter, unspecified; Z12.11 Encounter for screening for malignant neoplasm of colon; I10 Essential (primary) hypertension
CPT/HCPCS: 99214

== ENCOUNTER 2024-02-16 10:09 | Outpatient (AMB) | payer OTHER, SELFPAY ==
[2024-02-16 10:26] VITALS: BP 110/70; PULSE 80; O2SAT 98; BMI 36.1
--- NOTE | 2024-02-16 10:26 | HO.NEPHOV ---
HPI HPI Comments History of Present Illness Details I had the privilege of seeing Anuj in follow-up of his high serum creatinine. He does not have any hematuria or proteinuria. He had some family stressors and his blood pressure was found to be marginally high at that time. He was initiated on HCTZ by the primary care physician, after which he has been getting intermittent dizziness. He has put a hold on taking that medication for now. He has no edema. His serum creatinine has been fluctuating. He has history of UTIs as a child. He denies using excessive nonsteroidal anti-inflammatories or taking creatine. He does not have any nausea, vomiting, diarrhea, chest pain, shortness of breath, proximal nocturnal dyspnea, orthopnea, pedal edema. Otherwise he feels well. REPLACED BY [facility] Medical History Colon cancer screening GERD (gastroesophageal reflux disease) Hypercholesterolemia Impaired glucose tolerance Insomnia Lumbar herniated disc Obesity (BMI 30-39.9) Surgical History History of laminectomy History of arthroscopy of left knee H/O shoulder surgery Family History Father No problems noted. Mother No problems noted. Maternal Uncle Prostate cancer CAD (coronary artery disease) Family/Other High cholesterol Diabetes Social History Housing: Apartment Alcohol intake: current Alcohol intake frequency: a few times a month Patient Tobacco Use Status: Former Tobacco user Tobacco use type: Cigarette Years Smoked: stopped 18years old e-Cigarette/Vaping Use: Never Used Second Hand Smoke Exposure: No service: No Current occupational status: employed Cognitive needs: No Hearing needs: No Vision needs: No Vital Signs 02/16/24 10:26 Height 6 ft Weight 266 lb 6 oz BMI 36.1 BP 110/70 Blood Pressure Location Lt brachial Position Sitting Pulse 80 Pulse Source Pulse Oximeter Pulse Oximetry (%) 98 Oxygen Delivery Method Room Air Physical Exam Vital Signs: Last Vital Signs Pulse 80 02/16/24 10:26 BP 110/70 02/16/24 10:26 Pulse Ox 98 02/16/24 10:26 Oxygen Delivery Method Room Air 02/16/24 10:26 BMI result Body Mass Index 36.1 Const General: comfortable and no acute distress Orientation/consciousness: patient oriented x3 HEENT Head: Yes normocephalic Mouth: Normal oral and palatal mucosa present Eyes EOM: EOMs intact bilaterally Neck Neck: Yes supple Resp Auscultation: clear to auscultation bilaterally Cardio Jugular venous distension: no JVD Rate: regular rate GI Palpation (GI): Soft to palpation Auscultation: normal bowel sounds General: Yes no CVA tenderness Back/Spine/Pelvis Back: no CVA tenderness Skin General skin exam: no rashes or lesions noted Neuro General: patient oriented x3 and moves all extremities Extrem General: Yes no pedal edema Assessment & Plan Assessment & Plan (1) Abnormal serum creatinine level: Code(s): R79.89 - Other specified abnormal findings of blood chemistry Plan Anuj has higher serum creatinine which has been fluctuant. It can be due to his high muscle mass or due to some drop of his GFR at some point in his life due to tubular injury. He has history of UTI as a child. His previous imaging studies has not shown up any structural abnormality. I have ordered 24 hour urine collection for creatinine clearance along with further workup including imaging studies. If there is any need, I plan to do a split function radio isotope study of his kidneys to ascertain the percentage of function both kidneys. If his serum creatinine goes up I will also consider doing a renal biopsy. I asked him to hold his HCTZ given he is getting recurrent orthostatic symptoms. He should maintain good hydration and avoid nonsteroidal anti-inflammatories. I did not make any medication changes today. Answered all questions. Follow-up appointment given. Orders: Orders Electrolytes Today - Other specified abnormal findings of blood chemistry Parathyroid Hormone Intact Today - Other specified abnormal findings of blood chemistry Creatinine Clearance Urine Today - Other specified abnormal findings of blood chemistry US renal BI Today - Other specified abnormal findings of blood chemistry Creatinine Today - Other specified abnormal findings of blood chemistry Blood Urea Nitrogen Today - Other specified abnormal findings of blood chemistry Vitamin D 25-OH Total Today - Other specified abnormal findings of blood chemistry Coding Level of Care Code Est Pt Level 4 (47962) Diagnoses Abnormal serum creatinine level Results Reviewed Nephrology Results: Sodium 139 mmol/L (135-145) 07/24/23 Potassium 4.4 mmol/L (3.3-5.1) 07/24/23 Chloride 104 mmol/L (96-108) 07/24/23 Carbon Dioxide 28 mmol/L (22-29) 07/24/23 BUN 13 mg/dL (9-16) 07/24/23 Creatinine 1.33 mg/dL (0.5-1.4) 07/24/23 Calcium 10.0 mg/dL (8.4-10.2) 07/24/23
== END 2024-02-16 11:06 | disposition home or self-care (01) ==
PROVIDERS: PCP Internal Medicine; Referring Provider Internal Medicine; Visit Provider Internal Medicine Nephrology
DX: R79.89 Other specified abnormal findings of blood chemistry (principal)
CPT/HCPCS: 99214

== ENCOUNTER → 2024-02-16 10:09 | Outpatient (BNVA) | payer OTHER, SELFPAY | PROVIDERS: PCP Internal Medicine; Referring Provider Internal Medicine; Visit Provider Internal Medicine Nephrology | DX: R79.89 Other specified abnormal findings of blood chemistry (principal) | CPT/HCPCS: 99212 ==

== ENCOUNTER 2024-02-23 09:03 | Outpatient (REF) | payer OTHER, SELFPAY | END 2024-02-23 09:04 | disposition home or self-care (01) | LOC: HO.LAB 09:03 | PROVIDERS: Absent Provider Internal Medicine; PCP Internal Medicine; Visit Provider Internal Medicine Nephrology | DX: Z13.89 Encounter for screening for other disorder (principal) ==

== ENCOUNTER 2024-02-25 12:33 | Outpatient (REF) | payer OTHER, SELFPAY ==
--- NOTE | ~2024-02-25 | US_ITS ---
EXAMINATION: US RETROPERITONEAL LIMITED (RENAL ONLY) CLINICAL INFORMATION: Abnormal renal function. COMPARISON: None available. TECHNIQUE: Grayscale and color imaging of the kidneys FINDINGS: RIGHT KIDNEY: 12.3 x 5.6 x 6 cm (SAG x AP x TRV). The kidney is normal in size, contour, and echogenicity. Renal cortical thickness is normal. No calculi or focal parenchymal lesions. No hydronephrosis. LEFT KIDNEY: 11.4 x 6 x 5.5 cm (SAG x AP x TRV). The kidney is normal in size, contour, and echogenicity. Renal cortical thickness is normal. No calculi or focal parenchymal lesions. No hydronephrosis. US/US renal BI IMPRESSION: Normal renal ultrasound.
== END 2024-02-25 12:34 | disposition home or self-care (01) ==
LOC: HO.US 12:33
PROVIDERS: PCP Internal Medicine; Visit Provider Internal Medicine Nephrology
DX: R79.89 Other specified abnormal findings of blood chemistry (principal)
CPT/HCPCS: 76775

== ENCOUNTER 2024-03-09 14:10 | Outpatient (AMB) | payer OTHER, SELFPAY ==
[2024-03-09 14:13] VITALS: BP 126/90; PULSE 84; O2SAT 97; BMI 35.5
--- NOTE | 2024-03-09 14:13 | A.OFFPC_ITS ---
Vital Signs 3 03/09/24 14:13 Height 6 ft Weight 262 lb 0.2 oz BMI 35.5 BP 126/90 H Blood Pressure Location Lt brachial Position Sitting Pulse 84 Pulse Source Pulse Oximeter Pulse Oximetry (%) 97 Oxygen Delivery Method Room Air Intake Visit Reasons: [facility] 03/05 back spasm/ shingles Surgical Supplies Sterilizer Required: No Allergies milk Adverse Reaction (Mild, Verified 03/09/24 14:13) Heartburn, Diarrhea Medication List - Last Reconciled 03/09/24 by Noé Montaño MD acetaminophen 325 mg PO BID PRN fluticasone propionate 50 mcg/actuation 1 spray intranasal DAILY gabapentin 300 mg PO TID hydrochlorothiazide 12.5 mg PO DAILY lidocaine 5% 1 patch topical DAILY omeprazole 20 mg PO DAILY oxycodone-acetaminophen 5-325 mg (Percocet) 1 tab PO .bid PRN 28 days tizanidine 4 mg PO DAILY zolpidem 5 mg PO BEDTIME PRN Tobacco use date assessed: 03/09/24 Dental Screening Dental Screen Date: 03/09/24 HPI [facility] 03/05 back spasm/ shingles 2 HPI0 Details 49-year-old obese male with a history of herniated lumbar disc on narcotic pain medication p.r.n. impaired glucose tolerance hypercholesterolemia GERD obstructive sleep apnea and hypertension coming in for follow-up. Last seen in January 2024. Review of the notes had ER visit in March 05 for the chronic back pain with epigastric discomfort patient passed gas in the ER and significant improvement. Question of shingles patient had a renal ultrasound showing normal. Patient has been sent to the Nephrology do the increasing creatinine and being worked up presently [facility] Medical History Colon cancer screening GERD (gastroesophageal reflux disease) Hypercholesterolemia Impaired glucose tolerance Insomnia Lumbar herniated disc Obesity (BMI 30-39.9) Surgical History History of laminectomy History of arthroscopy of left knee H/O shoulder surgery Family History Father No problems noted. Mother No problems noted. Maternal Uncle Prostate cancer CAD (coronary artery disease) Family/Other High cholesterol Diabetes Social History Housing: Apartment Alcohol intake: current Alcohol intake frequency: a few times a month Patient Tobacco Use Status: Former Tobacco user Tobacco use type: Cigarette Years Smoked: stopped 18years old e-Cigarette/Vaping Use: Never Used Second Hand Smoke Exposure: No service: No Current occupational status: employed Cognitive needs: No Hearing needs: No Vision needs: No Questionnaire Thrive Questionnaire Date Thrive assessed: 02/04/24 CAITLIN-7 AMB Questionnaire CAITLIN-7 Date CAITLIN - 7 assessed: 02/04/24 Source: Developed by Drs. Jose Luis Campbell, Kathrin Biggs, Jaylen Ortiz and colleagues, with an educational raymond from [employer]. Physical exam (Primary Care) Vital Signs: Last Vital Signs Pulse 84 03/09/24 14:13 BP 126/90 H 03/09/24 14:13 Pulse Ox 97 03/09/24 14:13 Oxygen Delivery Method Room Air 03/09/24 14:13 BMI result Body Mass Index 35.5 Tobacco/Smoking Status: Tobacco use Status Tobacco use date assessed 03/09/24 03/09/24 14:14 Patient Tobacco Use Status Former Tobacco user 03/09/24 14:14 Tobacco use type Cigarette 03/09/24 14:14 e-Cigarette/Vaping Use Never Used 03/09/24 14:14 Thrive Assessment: Date of Thrive Assessment Date Thrive assessed 02/04/24 03/09/24 14:14 Const General: alert; No acute distress Eyes Conjunctivae: conjunctivae normal Resp Auscultation: clear to auscultation bilaterally Cardio Rate: regular rate Rhythm: regular rhythm GI Inspection: Yes normal to inspection Back/Spine/Pelvis Back/spine/pelvis image: 2 1. blisters multiple crops of this and also on the R chest area Extrem General: Yes normal to inspection and No edema Assessment and Plan Assessment & Plan (1) Abnormal serum creatinine level: Code(s): R79.89 - Other specified abnormal findings of blood chemistry Plan: Patient has met with Nephrology and presently being worked up ultrasound of the kidneys are normal (2) Hypertension: Code(s): I10 - Essential (primary) hypertension Plan: Continue with blood pressure medication. Decrease salt intake and exercise presently on hydrochlorothiazide but was held due to increasing creatinine. And workup advised. (3) Lumbar herniated disc: Comment: L5-S1 broad-based herniated disc Dr. Alberts 06/06/2010, work related Code(s): M51.26 - Other intervertebral disc displacement, lumbar region Plan: Narcotic pain meds: Is being prescribed with the understanding that these medications are potentially addictive and should be used only when absolutely necessary and must always be secured. Any remaining pills should be safely disposed off appropriately. Patient is advised that narcotics can impaired judgment and one should not drive or operate heavy machinery while taking these medications. Never share these medications with anybody and do not leave them unattended. They will not be replaced under any circumstances. (4) Shingles: Comment: 02/2024 R upper back to the Chest R Code(s): B02.9 - Zoster without complications Plan: 8th day already patient was prescribed antiviral. Discussed about using lidocaine patches to help with the pain. Long discussion about life cycle of the shingles varicella. And unfortunately pain may last long. Medications: New 2 lidocaine 5% leave on most painful area for up to 12 hrs 1 patch topical DAILY 30 ea 0RF B02.9 - Zoster without complications Discontinued 2 hydrochlorothiazide Discontinued Reason: Doctor's Order 12.5 mg PO DAILY 30 tabs 4RF I10 - Essential (primary) hypertension Coding Level of Care Code Est Pt Level 4 (22415) Diagnoses Abnormal serum creatinine level R79.89 Hypertension I10 Lumbar herniated disc M51.26 Shingles B02.9
== END 2024-03-09 14:46 | disposition home or self-care (01) ==
PROVIDERS: PCP Internal Medicine; Visit Provider Internal Medicine
DX: R79.89 Other specified abnormal findings of blood chemistry (principal); I10 Essential (primary) hypertension; M51.26 Other intervertebral disc displacement, lumbar region; B02.9 Zoster without complications
CPT/HCPCS: 99214

== ENCOUNTER 2024-04-08 08:03 | Outpatient (REF) | payer OTHER, SELFPAY ==
[2024-04-08 09:25] LABS: Anion Gap 13 (12-20); Blood Urea Nitrogen 15 mg/dL (9-16); Carbon Dioxide 27 mmol/L (22-29); Chloride 102 mmol/L (96-108); Estimated Glomerular Filt Rate > 60; Potassium 4.2 mmol/L (3.3-5.1); Sodium 138 mmol/L (135-145)
[2024-04-08 10:46] LABS: Parathyroid Hormone Intact 74.2 pg/mL (8.7-77.1)
[2024-04-08 13:44] LABS: Total Volume 24 Hour Urine 3300 mL
[2024-04-08 13:54] LABS: Creatinine, 24Hr Urine 1.2 G/Day (1.0-2.0); Creatinine, mg/dL 36.68
[2024-04-08 15:22] LABS: Creatinine (CrCl) 1.26 mg/dL (0.5-1.4); Creatinine Clearance 66.7 mL/min (85-125)
== END 2024-04-08 08:04 | disposition home or self-care (01) ==
LOC: HO.LAB 08:03
PROVIDERS: PCP Internal Medicine; Visit Provider Internal Medicine Nephrology
DX: R79.89 Other specified abnormal findings of blood chemistry (principal)
CPT/HCPCS: 36415; 80051; 82306; 82565; 82575; 83970; 84520

== ENCOUNTER 2024-04-19 10:12 | Outpatient (AMB) | payer OTHER, SELFPAY ==
[2024-04-19 10:23] VITALS: BP 114/80; PULSE 71; O2SAT 98; BMI 36.1
--- NOTE | 2024-04-19 10:23 | HO.NEPHOV_ITS ---
Vital Signs 04/19/24 10:23 Height 6 ft Weight 266 lb 4 oz BMI 36.1 BP 114/80 Blood Pressure Location Lt brachial Position Sitting Pulse 71 Pulse Source Pulse Oximeter Pulse Oximetry (%) 98 Oxygen Delivery Method Room Air Intake Visit Reasons: 1 mon follow up/ Conf Claims Specialist Required: No Accompanied by: Self / Same As Patient Allergies milk Adverse Reaction (Mild, Verified 04/19/24 10:25) Heartburn, Diarrhea HPI Comments Details: I had the privilege of seeing Anuj in follow-up of his high serum creatinine. He does not have any hematuria or proteinuria. He had some family stressors and his blood pressure was found to be marginally high at that time. He was ini tiated on HCTZ by the primary care physician, after which he has been getting intermittent dizziness. He has put a hold on taking that medication for now. He has no edema. His serum creatinine has been fluctuating. He has history of UTIs as a child. He denies using excessive nonsteroidal anti-inflammatories or taking creatine. He does not have any nausea, vomiting, diarrhea, chest pain, shortness of breath, proximal nocturnal dyspnea, orthopnea, pedal edema. Otherwise he feels well. [facility] Medical History Colon cancer screening GERD (gastroesophageal reflux disease) Hypercholesterolemia Impaired glucose tolerance Insomnia Lumbar herniated disc Obesity (BMI 30-39.9) Surgical History History of laminectomy History of arthroscopy of left knee H/O shoulder surgery Family History Father No problems noted. Mother No problems noted. Maternal Uncle Prostate cancer CAD (coronary artery disease) Family/Other High cholesterol Diabetes Social History Housing: Apartment Alcohol intake: current Alcohol intake frequency: a few times a month Patient Tobacco Use Status: Former Tobacco user Tobacco use type: Cigarette Years Smoked: stopped 18years old e-Cigarette/Vaping Use: Never Used Second Hand Smoke Exposure: No service: No Current occupational status: employed Cognitive needs: No Hearing needs: No Vision needs: No Physical Exam Vital Signs: Last Vital Signs Pulse 71 04/19/24 10:23 BP 114/80 04/19/24 10:23 Pulse Ox 98 04/19/24 10:23 Oxygen Delivery Method Room Air 04/19/24 10:23 BMI result Body Mass Index 36.1 Results Reviewed Nephrology Results: Sodium 138 mmol/L (135-145) 04/08/24 Potassium 4.2 mmol/L (3.3-5.1) 04/08/24 Chloride 102 mmol/L (96-108) 04/08/24 Carbon Dioxide 27 mmol/L (22-29) 04/08/24 BUN 15 mg/dL (9-16) 04/08/24 Creatinine 1.26 mg/dL (0.5-1.4) 04/08/24 Calcium 10.0 mg/dL (8.4-10.2) 07/24/23 PTH Intact 74.2 pg/mL (8.7-77.1) 04/08/24 Renal US 02/25/24 Assessment & Plan Assessment & Plan (1) CKD (chronic kidney disease) stage 2, GFR 60-89 ml/min: Code(s): N18.2 - Chronic kidney disease, stage 2 (mild) Category: Medical (2) Hypertension: Code(s): I10 - Essential (primary) hypertension Category: Medical Qualifiers: Hypertension type: primary hypertension Qualified Code(s): I10 - Essential (primary) hypertension Plan Anuj has higher serum creatinine which has been fluctuant. It can be due to his high muscle mass or due to some drop of his GFR at some point in his life due to tubular injury. He has history of UTI as a child. His previous imaging studies has not shown up any structural abnormality. His 24 hour urine collection for creatinine clearance showed GFR of close to 70 mls/mt. If there is any need, I plan to do a split function radio isotope study of his kidneys to ascertain the percentage of function both kidneys. If his serum creatinine goes up I will also consider doing a renal biopsy. I asked him to hold his HCTZ given he is getting recurrent orthostatic symptoms. He should maintain good hydration and avoid nonsteroidal anti-inflammatories. He has seen Dr Long for weight loss surgery. I did not make any medication changes today. Answered all questions. Follow-up appointment given. Orders: Orders Creatinine Today I10 - Essential (primary) hypertension, N18.2 - Chronic kidney disease, stage 2 (mild) Blood Urea Nitrogen Today I10 - Essential (primary) hypertension, N18.2 - Chronic kidney disease, stage 2 (mild) Electrolytes Today I10 - Essential (primary) hypertension, N18.2 - Chronic kidney disease, stage 2 (mild) Coding Level of Care Code Est Pt Level 4 (92838) Diagnoses CKD (chronic kidney disease) stage 2, GFR 60-89 ml/min N18.2 Primary hypertension I10 Hypertension type: primary hypertension
== END 2024-04-19 10:40 | disposition home or self-care (01) ==
PROVIDERS: PCP Internal Medicine; Visit Provider Internal Medicine Nephrology
DX: I12.9 Hypertensive chronic kidney disease with stage 1 through stage 4 chronic kidney disease, or unspecified chronic kidney disease (principal); N18.2 Chronic kidney disease, stage 2 (mild)
CPT/HCPCS: 99214

== ENCOUNTER → 2024-04-19 10:12 | Outpatient (BNVA) | payer OTHER, SELFPAY | PROVIDERS: PCP Internal Medicine; Visit Provider Internal Medicine Nephrology | DX: I12.9 Hypertensive chronic kidney disease with stage 1 through stage 4 chronic kidney disease, or unspecified chronic kidney disease (principal); N18.2 Chronic kidney disease, stage 2 (mild) | CPT/HCPCS: 99212 ==

== ENCOUNTER 2024-06-01 11:05 | Outpatient (AMB) | payer OTHER, SELFPAY ==
[2024-06-01 11:02] VITALS: BP 130/82; PULSE 87; O2SAT 98; BMI 36.1
--- NOTE | 2024-06-01 11:02 | A.OFFPC_ITS ---
Vital Signs 06/01/24 11:02 Height 6 ft Weight 266 lb BMI 36.1 BP 130/82 Blood Pressure Location Lt brachial Position Sitting Pulse 87 Pulse Source Pulse Oximeter Pulse Oximetry (%) 98 Oxygen Delivery Method Room Air Intake Visit Reasons: Hypertension Allergies milk Adverse Reaction (Mild, Verified 06/01/24 11:03) Heartburn, Diarrhea Medication List - Last Reconciled 06/01/24 by Noé Montaño MD acetaminophen 325 mg PO BID PRN fluticasone propionate 50 mcg/actuation 1 spray intranasal DAILY gabapentin 300 mg PO TID lidocaine 5% 1 patch topical DAILY omeprazole 20 mg PO DAILY oxycodone-acetaminophen 5-325 mg (Percocet) 1 tab PO .bid PRN 28 days tizanidine 4 mg PO DAILY zolpidem 5 mg PO BEDTIME PRN Tobacco use date assessed: 03/09/24 Dental Screening Dental Screen Date: 03/09/24 HPI Hypertension HPI Details 49-year-old obese male with hypertension with a history of lumbar herniated disc coming in for follow-up. Last seen in February 2024 concern about elevated creatinine and was referred to Nephrology. Patient also had the shingles at that time. Patient did see Nephrology 04/19/2024 question of high muscle mass with drop in GFR due to tubular injury patient will have continue surveillance and if it is going up still renal biopsy requested patient was advised to stop hydrochlorothiazide avoid NSAIDs and hydration has seen bariatric surgeon also. PAtient has seen Dr. Long and has advised to have a PE complains of chronic nasal sinus congestion and has NS , allergy med and sinus rinse no help. [facility] Medical History Colon cancer screening GERD (gastroesophageal reflux disease) Hypercholesterolemia Impaired glucose tolerance Insomnia Lumbar herniated disc Obesity (BMI 30-39.9) Surgical History History of laminectomy History of arthroscopy of left knee H/O shoulder surgery Family History Father No problems noted. Mother No problems noted. Maternal Uncle Prostate cancer CAD (coronary artery disease) Family/Other High cholesterol Diabetes Social History Housing: Apartment Alcohol intake: current Alcohol intake frequency: a few times a month Patient Tobacco Use Status: Former Tobacco user Tobacco use type: Cigarette Years Smoked: stopped 18years old e-Cigarette/Vaping Use: Never Used Second Hand Smoke Exposure: No service: No Current occupational status: employed Cognitive needs: No Hearing needs: No Vision needs: Yes Questionnaire PHQ-9 Over the last 2 weeks, how often have you been bothered by any of the following problems? 1. Little interest or pleasure in doing things: not at all 2. Feeling down, depressed, or hopeless: not at all 3. Trouble falling or staying asleep, or sleeping too much: not at all 4. Feeling tired or having little energy: not at all 5. Poor appetite or overeating: not at all 6. Feeling bad about yourself - or that you are a failure or have let yourself or your family down: not at all 7. Trouble concentrating on things, such as reading the newspaper or watching television: not at all 8. Moving or speaking so slowly that other people could have noticed. Or the opposite - being so fidgety or restless that you have been moving around a lot more than usual: not at all 9. Thoughts that you would be better off or of hurting yourself in some way: not at all Total score: 0 Depression Screening Interpretation: Negative Depression Screening Done: Yes Source: Developed by Drs. Jose Luis Campbell, Kathrin Biggs, Jaylen Ortiz and colleagues, with an educational raymond from [employer]. Thrive Questionnaire Date Thrive assessed: 02/04/24 AUDIT C Alcohol Use Questionnaire (AUDIT-C) 1. How often do you have a drink containing alcohol?: 2-4 times a month 2. How many drinks containing alcohol do you have on a typical day when you are drinking?: 3 or 4 3. How often do you have six or more drinks on one occasion?: Never Total Score: 3 CAITLIN-7 AMB Questionnaire CAITLIN-7 Date CAITLIN - 7 assessed: 02/04/24 Source: Developed by Drs. Jose Luis Campbell, Kathrin Biggs, Jaylen Ortiz and colleagues, with an educational raymond from [employer]. Physical exam (Primary Care) Vital Signs: Last Vital Signs Pulse 87 06/01/24 11:02 BP 130/82 06/01/24 11:02 Pulse Ox 98 06/01/24 11:02 Oxygen Delivery Method Room Air 06/01/24 11:02 BMI result Body Mass Index 36.1 Tobacco/Smoking Status: Tobacco use Status Tobacco use date assessed 03/09/24 06/01/24 11:08 Patient Tobacco Use Status Former Tobacco user 06/01/24 11:08 Tobacco use type Cigarette 06/01/24 11:08 e-Cigarette/Vaping Use Never Used 06/01/24 11:08 PHQ-9: PHQ-9 Score PHQ-9: Total score 0 06/01/24 11:08 Depression Screening Interpretation: Negative Thrive Assessment: Date of Thrive Assessment Date Thrive assessed 02/04/24 06/01/24 11:08 Const General: alert; No acute distress Eyes Conjunctivae: conjunctivae normal Resp Auscultation: clear to auscultation bilaterally Cardio Rate: regular rate Rhythm: regular rhythm GI Inspection: Yes normal to inspection Extrem General: Yes normal to inspection and No edema Assessment and Plan Assessment & Plan (1) CKD (chronic kidney disease) stage 2, GFR 60-89 ml/min: Code(s): N18.2 - Chronic kidney disease, stage 2 (mild) Plan: Keep well hydrated patient has seen Nephrology and will continue to monitor renal function patient was advised to stop hydrochlorothiazide (2) Hypertension: Code(s): I10 - Essential (primary) hypertension Qualifiers: Hypertension type: primary hypertension Qualified Code(s): I10 - Essential (primary) hypertension Plan: Continue with blood pressure medication. Decrease salt intake and exercise patient was taken off hydrochlorothiazide and will continue to monitor blood pressure. (3) Obesity (BMI 30-39.9): Code(s): E66.9 - Obesity, unspecified Plan: Diet and exercise. PAtient will be seeing Bariatric surgery (4) Lumbar herniated disc: Comment: L5-S1 broad-based herniated disc Dr. Alberts 06/06/2010, work related Code(s): M51.26 - Other intervertebral disc displacement, lumbar region Plan: Narcotic pain meds: Is being prescribed with the understanding that these medications are potentially addictive and should be used only when absolutely necessary and must always be secured. Any remaining pills should be safely disposed off appropriately. Patient is advised that narcotics can impaired judgment and one should not drive or operate heavy machinery while taking these medications. Never share these medications with anybody and do not leave them unattended. They will not be replaced under any circumstances. (5) Impaired glucose tolerance: Code(s): R73.02 - Impaired glucose tolerance (oral) Plan: Decrease the amount of carbohydrate intake, pasta, bread, rice and potatoes are all sugar and that is aside from all the sweet stuff, remember that fruits are good but they are Sweet also. (6) Hypercholesterolemia: Code(s): E78.00 - Pure hypercholesterolemia, unspecified Plan: Avoid fried foods, chicken skin, eggs, butter margarine, pastries and meat. Be it pork or beef they have a lot of cholesterol LDL goal of less than 130 and triglyceride of less than 150 (7) GERD (gastroesophageal reflux disease): Code(s): K21.9 - Gastro-esophageal reflux disease without esophagitis Qualifiers: Esophagitis presence: without esophagitis Qualified Code(s): K21.9 - Gastro-esophageal reflux disease without esophagitis Plan: Avoid the foods that causes that usually spicy foods, tomato products, juices, coffee, soda and foods that your sensitive to. After eating do not lie down, allow 3-4 hours before in lie down. And keep the head of bed above 30 degrees to avoid the acid from going up. (8) Schatzki's ring: Comment: March 2021 with moderate GERD Code(s): K22.2 - Esophageal obstruction (9) Colon cancer screening: Code(s): Z12.11 - Encounter for screening for malignant neoplasm of colon Orders: Orders Complete Blood Count Auto Diff Today R73.02 - Impaired glucose tolerance (oral) Free T4 (Free Thyroxine) Today R73.02 - Impaired glucose tolerance (oral) Hemoglobin A1c Today R73.02 - Impaired glucose tolerance (oral) Comprehensive Met. Panel Today R73.02 - Impaired glucose tolerance (oral) Lipid Panel Today E78.00 - Pure hypercholesterolemia, unspecified, R73.02 - Imp aired glucose tolerance (oral) Thyroid Stimulating Hormone Today R73.02 - Impaired glucose tolerance (oral) Vitamin B12 and Folate Today R73.02 - Impaired glucose tolerance (oral) Referrals Gastroenterology Referral K22.2 - Esophageal obstruction, Z12.11 - Encounter for screening for malignant neoplasm of colon Ear/Nose/Throat Referral R09.81 - Nasal congestion Coding Level of Care Code Est Pt Level 4 (74051) Diagnoses CKD (chronic kidney disease) stage 2, GFR 60-89 ml/min N18.2 Primary hypertension I10 Hypertension type: primary hypertension Obesity (BMI 30-39.9) E66.9 Lumbar herniated disc M51.26 Impaired glucose tolerance R73.02 Hypercholesterolemia E78.00 Gastroesophageal reflux disease without esophagitis K21.9 Esophagitis presence: without esophagitis Schatzki's ring K22.2 Colon cancer screening Z12.11
== END 2024-06-01 11:53 | disposition home or self-care (01) ==
PROVIDERS: PCP Internal Medicine; Visit Provider Internal Medicine
DX: I12.9 Hypertensive chronic kidney disease with stage 1 through stage 4 chronic kidney disease, or unspecified chronic kidney disease (principal); N18.2 Chronic kidney disease, stage 2 (mild); E66.9 Obesity, unspecified; Z68.36 Body mass index [BMI] 36.0-36.9, adult; M51.26 Other intervertebral disc displacement, lumbar region; R73.02 Impaired glucose tolerance (oral); E78.00 Pure hypercholesterolemia, unspecified; K21.9 Gastro-esophageal reflux disease without esophagitis; K22.2 Esophageal obstruction; Z12.11 Encounter for screening for malignant neoplasm of colon
CPT/HCPCS: 99214

== ENCOUNTER 2024-09-05 17:27 | Outpatient (AMB) | payer OTHER, SELFPAY ==
--- NOTE | 2024-09-05 17:37 | MHC.PC.OV ---
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: No Accompanied by: Self / Same As Patient Allergies milk Adverse Reaction (Mild, Verified 09/05/24 17:39) Heartburn, Diarrhea Tobacco use date assessed: 03/09/24 Dental Screening Dental Screen Date: 09/05/24 Did you have a dental visit in the last 12 months?: No Did you have a dental problem in the last 6 months where you did not have access to dental care?: No Was dental information given to patient?: Patient has dentist HPI physical exam HPI Details 49-year-old obese male with hypertension impaired glucose tolerance hypercholesterolemia GERD with chronic kidney disease coming in for follow-up. Patient last seen in 06/04/2024. Patient also has history of chronic low back pain on narcotic pain medication. Review of the notes has met with the bariatric surgeon class 2 obesity BMI of 36-36.9 patient is being worked on as far as insurance is for surgery. scheduled for 09/2024.Patient patient has been complaining of chills in the last 2 days with sore throat congestion and cough. Patient states having this every year and that is he knows there is a infection coming. Patient otherwise admits to having allergy problem and takes Claritin and Flonase nasal spray. Patient declined any flu shot. Otherwise needs refills on sleeping medication as well as for the pain on the back. [facility] Medical History Colon cancer screening GERD (gastroesophageal reflux disease) Hypercholesterolemia Impaired glucose tolerance Insomnia Lumbar herniated disc Obesity (BMI 30-39.9) Surgical History History of laminectomy History of arthroscopy of left knee H/O shoulder surgery Family History Father No problems noted. Mother No problems noted. Maternal Uncle Prostate cancer CAD (coronary artery disease) Family/Other High cholesterol Diabetes Social History Housing: Apartment Alcohol intake: current Alcohol intake frequency: a few times a month Patient Tobacco Use Status: Former Tobacco user Tobacco use type: Cigarette Years Smoked: stopped 18years old e-Cigarette/Vaping Use: Never Used Second Hand Smoke Exposure: No service: No Current occupational status: unemployed and disabled Cognitive needs: No Hearing needs: No Vision needs: Yes Questionnaire PHQ-9 Over the last 2 weeks, how often have you been bothered by any of the following problems? 1. Little interest or pleasure in doing things: not at all 2. Feeling down, depressed, or hopeless: not at all 3. Trouble falling or staying asleep, or sleeping too much: not at all 4. Feeling tired or having little energy: not at all 5. Poor appetite or overeating: not at all 6. Feeling bad about yourself - or that you are a failure or have let yourself or your family down: not at all 7. Trouble concentrating on things, such as reading the newspaper or watching television: several days 8. Moving or speaking so slowly that other people could have noticed. Or the opposite - being so fidgety or restless that you have been moving around a lot more than usual: not at all 9. Thoughts that you would be better off or of hurting yourself in some way: not at all Total score: 1 Source: Developed by Drs. Jose Luis Campbell, Kathrin Biggs, Jaylen Ortiz and colleagues, with an educational raymond from [employer]. Thrive Questionnaire Date Thrive assessed: 09/05/24 I am a: Patient What is your living situation today?: I have a steady place to live Within the past 12 months, did the food you bought not last and you didn't have the money to get more?: Never true Within the past 12 months, did you worry whether your food would run out before you got money to buy more?: Never true Do you have trouble paying for medicines?: No Do you have trouble getting transportation to medical appointments?: No Do you have trouble paying your heating and electricity bill?: No Do you have trouble taking care of your child, family member or friend?: No Do you have trouble with day-to-day activities such as bathing, preparing meals, shopping, managing finances, etc.?: No Are you currently unemployed and looking for a job?: No Are you interested in more education?: Yes Please select the resources that you would like help with: Education Currently or been in a relationship where the following occur: No concerns reported THRIVE Score: 0 AUDIT C Alcohol Use Questionnaire (AUDIT-C) 1. How often do you have a drink containing alcohol?: Monthly or less 2. How many drinks containing alcohol do you have on a typical day when you are drinking?: 1 or 2 3. How often do you have six or more drinks on one occasion?: Never Total Score: 1 CAITLIN-7 AMB Questionnaire CAITLIN-7 Date CAITLIN - 7 assessed: 09/05/24 Feeling nervous, anxious, or on edge: 0 = Not at all Not being able to stop or control worryin = Not at all Worrying too much about different things: 0 = Not at all Trouble relaxin = Not at all Being so restless that it is hard to sit still: 0 = Not at all Becoming easily annoyed or irritable: 0 = Not at all Feeling afraid as if something awful might happen: 0 = Not at all Total CAITLIN-7 score (0-4 normal; 5-9 mild; 10-14 moderate; 15-21 severe): 0 Source: Developed by Drs. Jose Luis Campbell, Kathrin Biggs, Jaylen Ortiz and colleagues, with an educational raymond from [employer]. Physical exam (Primary Care) Vital Signs: Last Vital Signs BP 130/86 09/05/24 17:38 BMI result Body Mass Index 36.6 Tobacco/Smoking Status: Tobacco use Status Tobacco use date assessed 03/09/24 09/05/24 17:42 Patient Tobacco Use Status Former Tobacco user 09/05/24 17:42 Tobacco use type Cigarette 09/05/24 17:42 e-Cigarette/Vaping Use Never Used 09/05/24 17:42 PHQ-9: PHQ-9 Score PHQ-9: Total score 1 09/05/24 17:42 Thrive Assessment: Date of Thrive Assessment Date Thrive assessed 09/05/24 09/05/24 17:42 Currently or been in a relationship where the following occur: No concerns reported Const General: alert; No acute distress Eyes Conjunctivae: conjunctivae normal Resp Auscultation: clear to auscultation bilaterally Cardio Rate: regular rate Rhythm: regular rhythm GI Inspection: Yes normal to inspection Extrem General: Yes normal to inspection and No edema Office Procedures Flu Questionnaire Does the patient have a severe egg allergy?: No Immunizations Fluarix Triv [id number] (PF) 45 mcg (15 mcg x 3)/0.5 mL IM syringe Performing Provider: Noé Montaño MD [place] [facility] [place] [facility] Documented (not given) by: GUSTAVO Alonzo on 09/05/24 17:43 Reason Not Given: Patient Refused Coding Level of Care Code Est Pt Level 4 (40063) Diagnoses Obesity (BMI 30-39.9) E66.9 Hypercholesterolemia E78.00 Gastroesophageal reflux disease without esophagitis K21.9 Esophagitis presence: without esophagitis Lumbar herniated disc M51.26 CKD (chronic kidney disease) stage 2, GFR 60-89 ml/min N18.2 Allergic rhinitis due to other allergic trigger, unspecified seasonality J30.89 Allergic rhinitis trigger: other Allergic rhinitis seasonality: unspecified Assessment & Plan Assessment & Plan (1) Obesity (BMI 30-39.9): Code(s): E66.9 - Obesity, unspecified Category: Medical Plan: Diet and exercise. Patient has met with bariatric surgeon and planned surgery (2) Hypercholesterolemia: Code(s): E78.00 - Pure hypercholesterolemia, unspecified Category: Medical Plan: Avoid fried foods, chicken skin, eggs, butter margarine, pastries and meat. Be it pork or beef they have a lot of cholesterol LDL goal of less than 130 and triglyceride of less than 150. (3) GERD (gastroesophageal reflux disease): Code(s): K21.9 - Gastro-esophageal reflux disease without esophagitis Category: Medical Qualifiers: Esophagitis presence: without esophagitis Qualified Code(s): K21.9 - Gastro-esophageal reflux disease without esophagitis Plan: Avoid the foods that causes that usually spicy foods, tomato products, juices, coffee, soda and foods that your sensitive to. After eating do not lie down, allow 3-4 hours before in lie down. And keep the head of bed above 30 degrees to avoid the acid from going up. (4) Lumbar herniated disc: Comment: L5-S1 broad-based herniated disc Dr. Alberts 06/06/2010, work related Code(s): M51.26 - Other intervertebral disc displacement, lumbar region Category: Medical Plan: Narcotic pain meds: Is being prescribed with the understanding that these medications are potentially addictive and should be used only when absolutely necessary and must always be secured. Any remaining pills should be safely disposed off appropriately. Patient is advised that narcotics can impaired judgment and one should not drive or operate heavy machinery while taking these medications. Never share these medications with anybody and do not leave them unattended. They will not be replaced under any circumstances. (5) CKD (chronic kidney disease) stage 2, GFR 60-89 ml/min: Code(s): N18.2 - Chronic kidney disease, stage 2 (mild) Category: Medical Plan: Keep well hydrated and avoid NSAIDs. (6) Allergic rhinitis: Code(s): J30.9 - Allergic rhinitis, unspecified Category: Medical Qualifiers: Allergic rhinitis trigger: other Allergic rhinitis seasonality: unspecified Qualified Code(s): J30.89 - Other allergic rhinitis Plan: claritin to take and continue with the nasal spray. Orders: Orders Influenza [id number] Immunization Today Z23 - Encounter for immunization Medications: Refilled zolpidem 5 mg PO BEDTIME PRN 30 tabs 0RF insomnia G47.00 - Insomnia, unspecified oxycodone-acetaminophen 5-325 mg (Percocet) 1 tab PO .bid 28 days PRN 56 tabs 0RF pain M51.26 - Other intervertebral disc displacement, lumbar region
[2024-09-05 17:38] VITALS: BP 130/86; BMI 36.6
== END 2024-09-05 18:08 | disposition home or self-care (01) ==
PROVIDERS: PCP Internal Medicine; Visit Provider Internal Medicine
DX: E78.00 Pure hypercholesterolemia, unspecified (principal); E66.812 Obesity, class 2; Z68.36 Body mass index [BMI] 36.0-36.9, adult; K21.9 Gastro-esophageal reflux disease without esophagitis; M51.26 Other intervertebral disc displacement, lumbar region; N18.2 Chronic kidney disease, stage 2 (mild); J30.89 Other allergic rhinitis

== ENCOUNTER → 2024-09-05 17:27 | Outpatient (BNVA) | payer OTHER, SELFPAY | PROVIDERS: PCP Internal Medicine; Visit Provider Internal Medicine | DX: E66.9 Obesity, unspecified (principal); Z68.36 Body mass index [BMI] 36.0-36.9, adult; E78.00 Pure hypercholesterolemia, unspecified; K21.9 Gastro-esophageal reflux disease without esophagitis; M51.26 Other intervertebral disc displacement, lumbar region; N18.2 Chronic kidney disease, stage 2 (mild); J30.89 Other allergic rhinitis; Z28.21 Immunization not carried out because of patient refusal | CPT/HCPCS: 96127; 99212 ==

== ENCOUNTER 2024-09-06 15:22 | Outpatient (AMB) | payer OTHER, SELFPAY ==
--- NOTE | 2024-09-06 15:28 | A.OFFVIS_ITS ---
Vital Signs 09/06/24 15:29 Height 6 ft Weight 269 lb 6.478 oz BMI 36.5 BP 140/98 H Blood Pressure Location Rt radial Position Sitting Pulse 96 Pulse Source Pulse Oximeter Pulse Oximetry (%) 96 Oxygen Delivery Method Room Air Intake Visit Reasons: Esophageal obstruction, colo+egd scrn Intake Note: Relevant Flags or Indicators ? 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 Clare Leslie presents in office today for a scheduled colo and EGD consult Pt reports previous hx of EGD. Pt cannot recall any previous record of colo to his knowledge. Pt also reports weight gain over the last few years, unintentionally. CC; Since last visit; labs ordered ? none. Rx ordered ? no. Diagnostics/images ordered ? none per GI. Relevant GI Sx as reported per pt? Reflux ? Dysphagia ? Fecal abnormalities o?? Constipation -- Related to opioid therapy for chronic back pain. ? Abdominal Pain o?? Upper left is worst. Tender to palpation. However generalized. Pt also reports presence of hernia. ? Early satiety ? Bloating ? Abdominal distention ? Hx of any recent surgeries? Upcoming gastric surgery with [facility]. ? Pertinent FMHx? Maternal grandfather, maternal uncle -- prostate cancer, . 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 male with past medical history of constipation, CKD, shingles, hypertension, back surgery, Schatzki ring, hypercholesteremia, insomnia, LEFTY, GERD is here today for pre colonoscopy screening.? Patient was sent to us by his PCP.? This is his first colonoscopy screening. Patient believes that he never had a colonoscopy, however he did had several endoscopies in the past. Patient reports to me that he is been seen by bariatric surgeon at [facility] and he will have surgery next month. Will get records from [facility] as well as [facility] where patient has been seen in the ER for abdominal pain, epigastric pain.? Patient reports that currently he has been taking omeprazole and for the most part his symptoms are suppressed. Patient reports that he is not having trouble swallowing at this time and feels like his reflux is better controlled. Patient also is trying to lose weight and eat better and healthier. Patient is not eating late at night and not eating large meals. Patient reports that he is not moving his bowels well. Even he feels that he goes daily he is not feeling like he empties his bowels completely. Patient denies melena, hematochezia, unintentional weight loss or ribbon like stools. [facility] Medical History Colon cancer screening Lumbar herniated disc Impaired glucose tolerance Hypercholesterolemia Insomnia GERD (gastroesophageal reflux disease) Obesity (BMI 30-39.9) Surgical History History of laminectomy History of arthroscopy of left knee H/O shoulder surgery Family History Father No problems noted. Mother No problems noted. Maternal Uncle Prostate cancer CAD (coronary artery disease) Family/Other High cholesterol Diabetes Social History Housing: Apartment Alcohol intake: current Alcohol intake frequency: a few times a month Patient Tobacco Use Status: Former Tobacco user Tobacco use type: Cigarette Years Smoked: stopped 18years old e-Cigarette/Vaping Use: Never Used Second Hand Smoke Exposure: No service: No Current occupational status: unemployed and disabled Cognitive needs: No Hearing needs: No Vision needs: Yes Review of Systems Const Denies weight gain and Denies weight loss ENT Reports no additional complaints, Denies dysphagia and Denies odynophagia Card Reports no additional complaints Resp Reports no additional complaints GI Denies abdominal pain, Denies belching, Denies melena, Denies bloating, Denies change in bowel habits, Denies dysphagia, Denies excessive flatus, Denies dyspepsia, Denies heartburn, Denies diarrhea, Denies loose stools, Denies nausea, Denies odynophagia and Denies vomiting Reports no additional complaints Musc Reports no additional complaints Neuro Reports no additional complaints Psych Reports no additional complaints Endo Reports no additional complaints Physical Exam Vital Signs: Last Vital Signs Pulse 96 09/06/24 15:29 BP 140/98 H 09/06/24 15:29 Pulse Ox 96 09/06/24 15:29 Oxygen Delivery Method Room Air 09/06/24 15:29 BMI result Body Mass Index 36.5 Const General: comfortable and no acute distress Orientation/consciousness: patient oriented x3 Resp Auscultation: clear to auscultation bilaterally Cardio Rate: regular rate GI Inspection: Yes normal to inspection and No distended Palpation (GI): Soft to palpation, not firm, nontender and No hepatosplenomegaly present Auscultation: normal bowel sounds Rectal Exam - Male: Yes deferred General: Yes no CVA tenderness Back/Spine/Pelvis Back: no CVA tenderness Skin General skin exam: no rashes or lesions noted Neuro General: patient oriented x3 and moves all extremities Assessment & Plan Assessment & Plan (1) Colon cancer screening: Code(s): Z12.11 - Encounter for screening for malignant neoplasm of colon Category: Medical (2) Constipation: Code(s): K59.00 - Constipation, unspecified Category: Medical Qualifiers: Constipation type: slow transit constipation Qualified Code(s): K59.01 - Slow transit constipation (3) GERD (gastroesophageal reflux disease): Code(s): K21.9 - Gastro-esophageal reflux disease without esophagitis Category: Medical Qualifiers: Esophagitis presence: without esophagitis Qualified Code(s): K21.9 - Gastro-esophageal reflux disease without esophagitis Plan Patient will continue taking omeprazole. Patient is going for bariatric surgery next month and will hold off on sending him for colonoscopy at this time. Patient reports constipation will start him on senna. Increase fluid intake and activity to promote better bowel motility. He will return in 2 months and we will discuss going for colonoscopy. We will look for upper endoscopy results from [facility]. Patient must had them done before going for bariatric surgery. Patient is agreeable to current plan of care and verbalizes understanding of instructions. He was given the opportunity to ask questions and all questions answered. Thank you for allowing me to participate in his care Medications: New sennosides (senna) 17.2 mg (2 x 8.6 mg) PO DAILY 60 tabs 3RF Coding Level of Care Code New Pt Level 4 (22938) Diagnoses Colon cancer screening Z12.11 Slow transit constipation K59.01 Constipation type: slow transit constipation Gastroesophageal reflux disease without esophagitis K21.9 Esophagitis presence: without esophagitis Time Spent (min) 45 Comment 30 minutes spent with patient and additional 15 minutes spent reviewing his records
[2024-09-06 15:29] VITALS: BP 140/98; PULSE 96; O2SAT 96; BMI 36.5
== END 2024-09-06 16:02 | disposition home or self-care (01) ==
PROVIDERS: PCP Internal Medicine; Visit Provider Nurse Practitioner Family
DX: K59.01 Slow transit constipation (principal); K21.9 Gastro-esophageal reflux disease without esophagitis
CPT/HCPCS: 99213

== ENCOUNTER → 2024-09-06 15:22 | Outpatient (BNVA) | payer OTHER, SELFPAY | PROVIDERS: PCP Internal Medicine; Visit Provider Nurse Practitioner Family | DX: Z01.818 Encounter for other preprocedural examination (principal); K59.01 Slow transit constipation; K21.9 Gastro-esophageal reflux disease without esophagitis | CPT/HCPCS: 99212 ==

== ENCOUNTER 2024-10-25 07:48 | Outpatient (REF) | payer OTHER, SELFPAY ==
[2024-10-25 08:26] LABS: Hemoglobin 14.9 g/dl (14.0-18.0); Mean Corpuscular HGB Conc 33.1 g/dl (31.0-36.0); Mean Corpuscular Hemoglobin 28.3 pg (27.0-33.0); Mean Corpuscular Volume 85.4 fL (80.0-98.0); Mean Platelet Volume 12.6 fL (9.4-12.4); Platelet Count 174 X10*3/uL (160-400); Red Blood Count 5.27 X10*6/uL (4.60-5.80); Red Cell Distribution Width 14.1 % (11.0-16.0)
[2024-10-25 08:27] LABS: WBC ABN SCTR FOR CBC 1
[2024-10-25 08:36] LABS: Estimated Average Glucose 120 mg/dL; Hemoglobin A1C 151.7568 umol/L; Hemoglobin A1c % 5.8 % (<6.0); Total Hemoglobin (HGBA1C) 3809.6958 umol/L
[2024-10-25 08:46] LABS: Atypical Lymphs Percent Manual 1 % (0-6); Basophils Percent Manual 2 % (0-2); Eosinophils Percent Manual 1 % (0-4); Lymphocytes Percent Manual 17 % (20-40); Monocytes Percent Manual 10 % (2-11); Neutrophils Percent Manual 69 % (45-73)
[2024-10-25 08:47] LABS: Band Neutrophils Percent 0 % (3-5); Large Platelet PRESENT; Platelet Estimate NORMAL (NORMAL); Platelet Morphology Comment NOTED; RBC Morphology NORMAL
[2024-10-25 08:48] LABS: Atypical Lymph Absolute Manual 0.1 x10*3/uL; Basophils Abs Manual 0.2 X10*3/uL (0.0-0.2); Eosinophils Absolute Manual 0.1 X10*3/uL (0.0-0.4); Lymphocytes Absolute Manual 1.3 X10*3/uL (1.2-4.9); Monocytes Absolute Manual 0.8 X10*3/uL (0.1-1.2); Neutrophils Absolute Manual 5.2 X10*3/uL (2.0-8.3); White Blood Count 7.5 X10*3/uL (4.8-10.8)
[2024-10-25 09:01] LABS: Alanine Aminotransferase 25 U/L (0-40); Albumin Level 4.2 g/dL (3.5-5.0); Alkaline Phosphatase 73 U/L (39-117); Anion Gap 12 (12-20); Aspartate Amino Transferase 25 U/L (5-37); Bilirubin Total 0.8 mg/dL (0.0-1.0); Blood Urea Nitrogen 17 mg/dL (9-16); Calcium 9.6 mg/dL (8.4-10.2); Carbon Dioxide 26 mmol/L (22-29); Chloride 104 mmol/L (96-108); Cholesterol 183 mg/dL (<200); Estimated Glomerular Filt Rate > 60; Glucose Random 102 mg/dL (60-115); HDL Cholesterol 42 mg/dL (>40); LDL Cholesterol Calculated 118 mg/dL (<100); Sodium 138 mmol/L (135-145); Total Protein 7.4 g/dL (6.5-8.0); Triglycerides 118 mg/dL (<150)
[2024-10-25 09:02] LABS: Free T4 (Free Thyroxine) 1.13 ng/dL (0.71-1.85)
[2024-10-25 09:10] LABS: Thyroid Stimulating Hormone 0.59 uIU/mL (0.32-4.0)
[2024-10-25 09:16] LABS: Folate 13.2 ng/mL (> or = 4.0); Vitamin B12 505 pg/mL (200-900)
== END 2024-10-25 07:49 | disposition home or self-care (01) ==
LOC: HO.LAB 07:48
PROVIDERS: Absent Provider Internal Medicine Nephrology; PCP Internal Medicine; Visit Provider Internal Medicine
DX: E78.00 Pure hypercholesterolemia, unspecified (principal); R73.02 Impaired glucose tolerance (oral)
CPT/HCPCS: 36415; 80053; 80061; 82607; 82746; 83036; 84439; 84443; 85007; 85027

== ENCOUNTER 2024-11-01 11:50 | Outpatient (AMB) | payer OTHER, SELFPAY ==
--- NOTE | 2024-11-01 12:02 | HO.NEPHOV ---
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 He does not have any hematuria or proteinuria. He had some family stressors and his blood pressure was found to be marginally high at that time. He was initiated on HCTZ by the primary care physician, after which he has been getting intermittent dizziness. He has put a hold on taking that medication for now. He has no edema. His serum creatinine has been fluctuating. He has history of UTIs as a child. He denies using excessive nonsteroidal anti-inflammatories or taking creatine. He does not have any nausea, vomiting, diarrhea, chest pain, shortness of breath, proximal nocturnal dyspnea, orthopnea, pedal edema. He underwent gastric sleeve surgery and has lost quite a bit of weight. Otherwise he feels well. [facility] Medical History Colon cancer screening Lumbar herniated disc Impaired glucose tolerance Hypercholesterolemia Insomnia GERD (gastroesophageal reflux disease) Obesity (BMI 30-39.9) Surgical History History of laminectomy History of arthroscopy of left knee H/O shoulder surgery Family History Father No problems noted. Mother No problems noted. Maternal Uncle Prostate cancer CAD (coronary artery disease) Family/Other High cholesterol Diabetes Social History Housing: Apartment Alcohol intake: current Alcohol intake frequency: a few times a month Patient Tobacco Use Status: Former Tobacco user Tobacco use type: Cigarette Years Smoked: stopped 18years old e-Cigarette/Vaping Use: Never Used Second Hand Smoke Exposure: No service: No Current occupational status: unemployed and disabled Cognitive needs: No Hearing needs: No Vision needs: Yes Review of Systems Const All systems reviewed & are unremarkable except as noted in HPI and below Physical Exam Vital Signs: Last Vital Signs BP 132/70 11/01/24 12:04 BMI result Body Mass Index 32.7 Const General: comfortable and no acute distress Orientation/consciousness: patient oriented x3 HEENT Head: Yes normocephalic Mouth: Normal oral and palatal mucosa present Eyes EOM: EOMs intact bilaterally Neck Neck: Yes supple Resp Auscultation: clear to auscultation bilaterally Cardio Jugular venous distension: no JVD Rate: regular rate GI Palpation (GI): Soft to palpation Auscultation: normal bowel sounds General: Yes no CVA tenderness Back/Spine/Pelvis Back: no CVA tenderness Skin General skin exam: no rashes or lesions noted Neuro General: patient oriented x3 and moves all extremities Extrem General: Yes no pedal edema Results Reviewed Nephrology Results: Hgb 14.9 g/dl (14.0-18.0) 10/25/24 WBC 7.5 X10*3/uL (4.8-10.8) 10/25/24 Plt Count 174 X10*3/uL (160-400) 10/25/24 Sodium 138 mmol/L (135-145) 10/25/24 Potassium 4.0 mmol/L (3.3-5.1) 10/25/24 Chloride 104 mmol/L (96-108) 10/25/24 Carbon Dioxide 26 mmol/L (22-29) 10/25/24 BUN 17 mg/dL (9-16) H 10/25/24 Creatinine 1.20 mg/dL (0.5-1.4) 10/25/24 Calcium 9.6 mg/dL (8.4-10.2) 10/25/24 PTH Intact 74.2 pg/mL (8.7-77.1) 04/08/24 Renal US 02/25/24 Assessment & Plan Assessment & Plan (1) CKD (chronic kidney disease) stage 2, GFR 60-89 ml/min: Code(s): N18.2 - Chronic kidney disease, stage 2 (mild) Category: Medical Plan Anuj has higher serum creatinine which has been fluctuant. It can be due to his high muscle mass or due to some drop of his GFR at some point in his life due to tubular injury. He has history of UTI as a child. His previous imaging studies has not shown up any structural abnormality. His 24 hour urine collection for creatinine clearance showed GFR of close to 70 mls/mt. If there is any need, I plan to do a split function radio isotope study of his kidneys to ascertain the percentage of function both kidneys. If his serum creatinine goes up I will also consider doing a renal biopsy. I asked him to hold his HCTZ given he is getting recurrent orthostatic symptoms. He should maintain good hydration and avoid nonsteroidal anti-inflammatories. He had Dr Long operated on him for weight loss . I did not make any medication changes today. Answered all questions. Follow-up appointment given. Orders: Orders Blood Urea Nitrogen 6 Months N18.2 - Chronic kidney disease, stage 2 (mild) Electrolytes 6 Months N18.2 - Chronic kidney disease, stage 2 (mild) Protein Creatinine Ratio, Ur 6 Months N18.2 - Chronic kidney disease, stage 2 (mild) Creatinine 6 Months N18.2 - Chronic kidney disease, stage 2 (mild) Coding Level of Care Code Est Pt Level 4 (18083) Diagnoses CKD (chronic kidney disease) stage 2, GFR 60-89 ml/min N18.2
[2024-11-01 12:04] VITALS: BP 132/70; BMI 32.7
== END 2024-11-01 12:26 | disposition home or self-care (01) ==
PROVIDERS: PCP Internal Medicine; Visit Provider Internal Medicine Nephrology
DX: N18.2 Chronic kidney disease, stage 2 (mild) (principal)
CPT/HCPCS: 99214

== ENCOUNTER → 2024-11-01 11:50 | Outpatient (BNVA) | payer OTHER, SELFPAY | PROVIDERS: PCP Internal Medicine; Visit Provider Internal Medicine Nephrology | DX: N18.2 Chronic kidney disease, stage 2 (mild) (principal) | CPT/HCPCS: 99212 ==

== ENCOUNTER 2024-11-08 13:37 | Outpatient (AMB) | payer OTHER, SELFPAY ==
[2024-11-08 13:39] VITALS: BP 144/90; PULSE 85; O2SAT 96; BMI 32.0
--- NOTE | 2024-11-08 13:39 | A.OFFPC_ITS ---
Vital Signs 11/08/24 13:39 11/08/24 13:57 Height 6 ft Weight 236 lb BMI 32.0 BP 144/90 H 128/90 H Blood Pressure Location Lt brachial Lt brachial Position Sitting Sitting Pulse 85 Pulse Source Pulse Oximeter Pulse Oximetry (%) 96 Oxygen Delivery Method Room Air Intake Visit Reasons: annual exam Allergies milk Adverse Reaction (Mild, Verified 11/08/24 13:41) Heartburn, Diarrhea Medication List - Last Reconciled 11/08/24 by Noé Montaño MD acetaminophen 325 mg PO BID PRN blood pressure monitor (Blood Pressure Kit) As directed fluticasone propionate 50 mcg/actuation 1 spray intranasal DAILY lidocaine 5% 1 patch topical DAILY PRN mscidnhjwwds-gze-lbry-FA-vit K 45 mg iron- 800 mcg-120 mcg (Bariatric Multivitamins) caps PO oxycodone-acetaminophen 5-325 mg (Percocet) 1 tab PO .bid PRN 28 days pantoprazole 40 mg PO DAILY tizanidine 4 mg PO DAILY PRN ursodiol mg PO DAILY zolpidem 5 mg PO BEDTIME PRN Tobacco use date assessed: 11/08/24 Dental Screening Dental Screen Date: 11/08/24 Did you have a dental visit in the last 12 months?: No Did you have a dental problem in the last 6 months where you did not have access to dental care?: No Was dental information given to patient?: Patient has dentist HPI annual exam HPI Details occ nausea has constipation The patient is a 49-year-old male presenting with concerns regarding borderline hypertension and routine follow-up post-bariatric surgery. The patient has reported a slight elevation in blood pressure with the most recent measurement of 128/90 mmHg, with a diastolic pressure being a concern. The patient monitors blood pressure at home; however, there have been instances of increased readings. Attempting to manage weight post-surgery and maintain blood pressure through lifestyle interventions has been noted. Positional vertigo has been reported, notably occurring upon positional changes. The dizziness started following the recent surgery. The patient denies any episodes of passing out. There is a concern for obstructive sleep apnea, with historical mentions of shortness of breath upon awakening. However, these symptoms are not observed frequently now. The patient has undergone bariatric surgery with noted post-operative flexibility improvement. There has been a substantial positive change in cholesterol levels; the LDL cholesterol decreased from 155 mg/dL to 118 mg/dL. History of familial prostate cancer (both paternal uncle and maternal grandfather) presents notable risk factors for the patient. Additionally, pre-diabetic status noted through a fasting blood sugar level of 102 mg/dL and hemoglobin A1c at 5.8%. Hearing concerns have been identified, likely linked to occupational machine exposure. - Regular monitoring of hypertension. - Encouraged weight management through d iet and exercise. - Advised continued fluid intake to prev ent vertigo episodes. - Discussed the importance of home blood pressure monitoring. - Discussed cholesterol management with current improvements noted. - Advised regular follow-ups to monitor pre-diabetic status and cholesterol levels. - Recommend hearing evaluation due to oc cupational noise exposure. - Emphasized avoidance of NSAIDs to prev ent renal and gastric complications post-bariatric surgery. - The patient leads a physically active lifestyle due to prior athletic experience. - No regular alcohol consumption, with i ntake noted as minimal. - Former smoker, ceased smoking 16 years ago. - No recreational drug use reported. - Adheres to a balanced diet prescribed post-bariatric surgery. - Cardiovascular: Denies chest pain; rep orts elevated blood pressure. - Gastrointestinal: Denies heartburn; re ports nausea with excessive coffee intake. - Respiratory: Denies regular shortness of breath; mentions past shortness of breath upon waking. - Neurological: Reports dizziness with p ositional changes; denies syncope. - Genitourinary: Denies nocturia or diff iculties. - Musculoskeletal: Denies recent pain; n oticed post-surgical increase in flexibility. - Auditory: Reports occupational-related hearing difficulties as per spouse's observation. - Labs: Blood sugar fasting level 102 mg /dL, Hemoglobin A1c 5.8%, LDL cholesterol 118 mg/dL. - Tests: Kidney and liver function tests within normal limits. [facility] Medical History Colon cancer screening Lumbar herniated disc Impaired glucose tolerance Hypercholesterolemia Insomnia GERD (gastroesophageal reflux disease) Obesity (BMI 30-39.9) Surgical History History of laminectomy History of arthroscopy of left knee H/O shoulder surgery Family History (Updated 11/08/24 @ 14:03 by Noé Montaño MD) Father No problems noted. Mother No problems noted. Maternal Uncle Prostate cancer CAD (coronary artery disease) Family/Other High cholesterol Diabetes Maternal Grandfather Prostate cancer Social History (Updated 11/08/24 @ 14:03 by Noé Montaño MD) Housing: Apartment Alcohol intake: current Alcohol intake frequency: a few times a month Comment: once q 3 months 1-2 glasses Patient Tobacco Use Status: Former Tobacco user Tobacco use type: Cigarette Years Smoked: stopped 18years old e-Cigarette/Vaping Use: Never Used Second Hand Smoke Exposure: No service: No Current occupational status: unemployed and disabled Cognitive needs: No Hearing needs: No Vision needs: Yes Questionnaire PHQ-9 Over the last 2 weeks, how often have you been bothered by any of the following problems? 1. Little interest or pleasure in doing things: not at all 2. Feeling down, depressed, or hopeless: not at all 3. Trouble falling or staying asleep, or sleeping too much: not at all 4. Feeling tired or having little energy: not at all 5. Poor appetite or overeating: not at all 6. Feeling bad about yourself - or that you are a failure or have let yourself or your family down: not at all 7. Trouble concentrating on things, such as reading the newspaper or watching television: not at all 8. Moving or speaking so slowly that other people could have noticed. Or the opposite - being so fidgety or restless that you have been moving around a lot more than usual: not at all 9. Thoughts that you would be better off or of hurting yourself in some way: not at all Total score: 0 Depression Screening Interpretation: Negative Depression Screening Done: Yes 11818 - PHQ-9 Billing: Yes Source: Developed by Drs. Jose Luis Campbell, Kathrin Biggs, Jaylen Ortiz and colleagues, with an educational raymond from [employer]. Thrive Questionnaire Date Thrive assessed: 11/08/24 I am a: Patient What is your living situation today?: I have a steady place to live Within the past 12 months, did the food you bought not last and you didn't have the money to get more?: Never true Within the past 12 months, did you worry whether your food would run out before you got money to buy more?: Never true Do you have trouble paying for medicines?: No Do you have trouble getting transportation to medical appointments?: No Do you have trouble paying your heating and electricity bill?: No Do you have trouble taking care of your child, family member or friend?: No Do you have trouble with day-to-day activities such as bathing, preparing meals, shopping, managing finances, etc.?: No Are you currently unemployed and looking for a job?: No Are you interested in more education?: Yes Please select the resources that you would like help with: Education Currently or been in a relationship where the following occur: No concerns reported THRIVE Score: 0 AUDIT C Alcohol Use Questionnaire (AUDIT-C) 1. How often do you have a drink containing alcohol?: Monthly or less 2. How many drinks containing alcohol do you have on a typical day when you are drinking?: 1 or 2 3. How often do you have six or more drinks on one occasion?: Never Total Score: 1 CAITLIN-7 AMB Questionnaire CAITLIN-7 Date CAITLIN - 7 assessed: 11/08/24 Feeling nervous, anxious, or on edge: 0 = Not at all Not being able to stop or control worryin = Not at all Worrying too much about different things: 0 = Not at all Trouble relaxin = Not at all Being so restless that it is hard to sit still: 0 = Not at all Becoming easily annoyed or irritable: 0 = Not at all Feeling afraid as if something awful might happen: 0 = Not at all Total CAITLIN-7 score (0-4 normal; 5-9 mild; 10-14 moderate; 15-21 severe): 0 Source: Developed by Drs. Jose Luis Campbell, Kathrin Biggs, Jaylen Ortiz and colleagues, with an educational raymond from [employer]. CAITLIN-7 Assessment Billing CAITLIN-7 Assessment Tool: CAITLIN-7 Assessment 71699 Review of Systems Const Denies poor appetite and Denies weakness Eyes Denies no additional complaints ENT Reports Normal hearing present, Denies dizziness, Denies nasal congestion, Denies tinnitus and Denies sore throat Card Denies chest pain, Denies syncope, Denies rapid heart rate and Denies dyspnea Resp Denies cough and Denies dyspnea GI Denies change in stool character, Reports constipation, Denies diarrhea, Denies nausea and Denies vomiting Denies dysuria and Denies urinary frequency Neuro Reports Normal hearing present, Denies confusion, Denies dizziness, Denies syncope and Denies weakness Psych Denies confusion Physical exam (Primary Care) Vital Signs: Last Vital Signs Pulse 85 11/08/24 13:39 BP 128/90 H 11/08/24 13:57 Pulse Ox 96 11/08/24 13:39 Oxygen Delivery Method Room Air 11/08/24 13:39 BMI result Body Mass Index 32.0 Tobacco/Smoking Status: Tobacco use Status Tobacco use date assessed 11/08/24 11/08/24 13:43 Patient Tobacco Use Status Former Tobacco user 11/08/24 14:03 Tobacco use type Cigarette 11/08/24 14:03 e-Cigarette/Vaping Use Never Used 11/08/24 14:03 PHQ-9: PHQ-9 Score PHQ-9: Total score 0 11/08/24 14:04 Depression Screening Interpretation: Negative Thrive Assessment: Date of Thrive Assessment Date Thrive assessed 11/08/24 11/08/24 13:43 Currently or been in a relationship where the following occur: No concerns reported Const General: No confusion Orientation/consciousness: No confusion HENMT Head: Yes normocephalic Ears: external ears normal and TM's normal bilaterally Face and sinus: Yes normal facial exam Mouth: moist mucous membranes Throat: Yes tonsils normal Eyes Conjunctivae: conjunctivae normal Pupils: Equal, round and reactive pupils present and Pupil accommodation reflex normal Direct Ophthalmoscopy: normal light reflex Neck Neck: No lymphadenopathy Thyroid: Thyroid normal Chest Chest palpation & inspection: normal inspection of the chest Resp Effort & Inspection: normal respiratory effort and no audible wheezes Auscultation: clear to auscultation bilaterally, no crackles, no wheezes and lung sounds not diminished Cardio Rate: regular rate Rhythm: regular rhythm Peripheral pulses: radial pulses present and dorsalis pedis present GI Palpation (GI): no masses Auscultation: normal bowel sounds and normoactive bowel sounds Rectal Exam - Male: Yes deferred Skin General skin exam: no rashes or lesions noted Rashes: no rashes Neuro General: No confusion Cranial nerves: Yes Equal, round and reactive pupils present and Yes Normal hearing present Cognition (Neuro): normal cognition Gait exam (Neuro): Normal gait present Motor exam (neuro): 5/5 motor strength present throughout Deep tendon reflexes (DTR's): Right brachioradialis reflex intensity grade: 2+, Left brachioradialis reflex intensity grade: 2+, Right patellar reflex intensity grade: 2+ and Left patellar reflex intensity grade: 2+ Extrem General: No edema Coding Level of Care Code Est Pt Prev Care 40-64y(05474) Diagnoses Annual physical exam Z00.00 CKD (chronic kidney disease) stage 2, GFR 60-89 ml/min N18.2 Impaired glucose tolerance R73.02 Hypercholesterolemia E78.00 Gastroesophageal reflux disease without esophagitis K21.9 Esophagitis presence: without esophagitis Lumbar herniated disc M51.26 Obesity (BMI 30-39.9) E66.9 Status post sleeve gastrectomy Z90.3 Primary hypertension I10 Hypertension type: primary hypertension Hearing difficulty H91.90 Additional Codes CAITLIN-7 Assessment Billing - CAITLIN-7 Assessment Tool: CAITLIN-7 Assessment 76881 ([id number]) PHQ-9 - 76133 - PHQ-9 Billing: Yes ([id number]) Assessment & Plan Assessment & Plan (1) Annual physical exam: Code(s): Z00.00 - Encounter for general adult medical examination without abnormal findings Category: Medical (2) CKD (chronic kidney disease) stage 2, GFR 60-89 ml/min: Code(s): N18.2 - Chronic kidney disease, stage 2 (mild) Category: Medical (3) Impaired glucose tolerance: Code(s): R73.02 - Impaired glucose tolerance (oral) Category: Medical (4) Hypercholesterolemia: Code(s): E78.00 - Pure hypercholesterolemia, unspecified Category: Medical (5) GERD (gastroesophageal reflux disease): Code(s): K21.9 - Gastro-esophageal reflux disease without esophagitis Category: Medical Qualifiers: Esophagitis presence: without esophagitis Qualified Code(s): K21.9 - Gastro-esophageal reflux disease without esophagitis (6) Lumbar herniated disc: Comment: L5-S1 broad-based herniated disc Dr. Alberts 06/06/2010, work related Code(s): M51.26 - Other intervertebral disc displacement, lumbar region Category: Medical (7) Obesity (BMI 30-39.9): Code(s): E66.9 - Obesity, unspecified Category: Medical (8) Status post sleeve gastrectomy: Comment: Dr. Long 09/2024 Code(s): Z90.3 - Acquired absence of stomach [part of] Category: Surgical (9) Hypertension: Code(s): I10 - Essential (primary) hypertension Category: Medical Qualifiers: Hypertension type: primary hypertension Qualified Code(s): I10 - Essential (primary) hypertension (10) Hearing difficulty: Code(s): H91.90 - Unspecified hearing loss, unspecified ear Category: Medical Plan - Continue monitoring blood pressure with potential medication initiation if home values remain high. - Referral for a hearing test due to suspected occupational hearing loss. - Reinforce lifestyle adjustments post-surgery, including continued hydration and weight management. - Scheduled follow-up in three months to reassess blood pressure and vertigo. - Consider further evaluation of sleep apnea if symptomatic occurrences continue. - Follow-up with gastroenterology for colon screening as scheduled. - Avoid NSAID use to prevent gastrointestinal and renal strain post-surgery. During our conversation, we discussed the border-line hypertensive state and its management through lifestyle modification, with a potential future resort to pharmacologic treatment if home measurements persist at higher values. There was agreement on the necessity to monitor home blood pressure carefully. We reviewed the improvement in lipid profile as a testament to current lifestyle adjustments. Additionally, concern for potential obstructive sleep apnea and the presence of positional vertigo were noted. I articulated the significance of mitigating occupational noise exposure and advised a hearing evaluation. We also touched upon the continuity of care in the context of bariatric surgery recovery, emphasizing weight loss's critical role in lowering cardiovascular risks. Blood glucose levels being slightly elevated, the current non-diabetic status was discussed, with a proactive approach to maintaining positive lifestyle changes. I emphasized the avoidance of NSAIDs due to their potential adverse effects. - Monitor blood pressure at home and keep a log to discuss at next visit. - Maintain fluid intake to prevent dizziness. - Follow advice post-bariatric surgery on diet and exercise to support weight management. - Schedule a hearing test to evaluate potential loss. - Avoid NSAIDs to safeguard stomach and kidney health. - Follow up with gastroenterology department as planned and attend scheduled blood work. - Return in three months or sooner if symptoms worsen. - Consider limiting caffeine intake to prevent gastrointestinal discomfort. Orders: Referrals Speech and Hearing Referral H91.90 - Unspecified hearing loss, unspecified ear Medications: Refilled oxycodone-acetaminophen 5-325 mg (Percocet) 1 tab PO .bid PRN 56 tabs 0RF pain 28 days M51.26 - Other intervertebral disc displacement, lumbar region zolpidem 5 mg PO BEDTIME PRN 30 tabs 0RF insomnia G47.00 - Insomnia, unspecified blood pressure monitor (Blood Pressure Kit) As directed 1 ea 0RF I10 - Essential (primary) hypertension
[2024-11-08 13:57] VITALS: BP 128/90
== END 2024-11-08 14:26 | disposition home or self-care (01) ==
PROVIDERS: PCP Internal Medicine; Visit Provider Internal Medicine
DX: Z00.00 Encounter for general adult medical examination without abnormal findings (principal); I12.9 Hypertensive chronic kidney disease with stage 1 through stage 4 chronic kidney disease, or unspecified chronic kidney disease; N18.2 Chronic kidney disease, stage 2 (mild); Z68.32 Body mass index [BMI] 32.0-32.9, adult; E66.811 Obesity, class 1; R73.02 Impaired glucose tolerance (oral); E78.00 Pure hypercholesterolemia, unspecified; K21.9 Gastro-esophageal reflux disease without esophagitis; M51.26 Other intervertebral disc displacement, lumbar region; Z90.3 Acquired absence of stomach [part of]; H91.90 Unspecified hearing loss, unspecified ear

== ENCOUNTER → 2024-11-08 13:37 | Outpatient (BNVA) | payer OTHER, SELFPAY | PROVIDERS: PCP Internal Medicine; Visit Provider Internal Medicine | DX: Z00.00 Encounter for general adult medical examination without abnormal findings (principal); I10 Essential (primary) hypertension; R73.03 Prediabetes; N18.2 Chronic kidney disease, stage 2 (mild); R73.02 Impaired glucose tolerance (oral); E78.00 Pure hypercholesterolemia, unspecified; K21.9 Gastro-esophageal reflux disease without esophagitis; M51.26 Other intervertebral disc displacement, lumbar region; E66.9 Obesity, unspecified; H91.90 Unspecified hearing loss, unspecified ear; G47.00 Insomnia, unspecified; Z98.84 Bariatric surgery status; Z87.891 Personal history of nicotine dependence; Z68.32 Body mass index [BMI] 32.0-32.9, adult | CPT/HCPCS: 96127; 99396 ==

== ENCOUNTER 2024-11-21 15:37 | Outpatient (AMB) | payer OTHER, SELFPAY ==
[2024-11-21 15:38] VITALS: BP 128/80; PULSE 64; O2SAT 99; BMI 31.9
--- NOTE | 2024-11-21 15:38 | A.OFFVIS_ITS ---
Vital Signs 11/21/24 15:38 Height 6 ft Weight 235 lb 0.204 oz BMI 31.9 BP 128/80 Blood Pressure Location Rt brachial Position Sitting Pulse 64 Pulse Source Pulse Oximeter Pulse Oximetry (%) 99 Oxygen Delivery Method Room Air Intake Visit Reasons: ~2 mos FUV. Post gastric sleeve w/ [facility] Intake Note: ESTABLISHED PATIENT Reason; 2 mos FUV s/p gastric sleeve via [facility] Changes/concerns? Pt states that he has been noticing improvement in his sx and not experiencing reflux as often. This is s/p gastric sleeve. Allergies milk Adverse Reaction (Mild, Verified 11/21/24 15:38) Heartburn, Diarrhea HPI HPI ~2 mos FUV. Post gastric sleeve w/ [facility]: Details: Colon cancer screening Constipation GERD (gastroesophageal reflux disease) Plan Patient will continue taking omeprazole. Patient is going for bariatric surgery next month and will hold off on sending him for colonoscopy at this time. Patient reports constipation will start him on senna. Increase fluid intake and activity to promote better bowel motility. He will return in 2 months and we will discuss going for colonoscopy. We will look for upper endoscopy results from [facility]. Patient must had them done before going for bariatric surgery. Patient is agreeable to current plan of care and verbalizes understanding of instructions. He was given the opportunity to ask questions and all questions answered. ? Thank you for allowing me to participate in his care Medications New sennosides (senna) 17.2 mg (2 x 8.6 mg) PO DAILY 60 tabs 3RF TODAY'S VISIT Patient is here today for follow-up and to discuss prep. Patient had bariatric surgery in September and reports that he is doing quite well. Patient is advancing his diet. Upper endoscopy was done by his bariatric surgeon. Here today to discuss prep. He is moving his bowels better now. He continues to be on liquid diet but will start advancing soon. Patient denies dyspepsia, dysphagia or odynophagia. Denies melena, hematochezia, unintentional weight loss or ribbon like stools. Patient denies any issues with anesthesia. History of sleep apnea, however he is hoping to do better as he is already losing weight. Patient reports that he already lost almost 30 lb since his surgery. Patient is not on any anticoagulation medication. Patient denies any cardiac or respiratory symptoms. No trouble with anesthesia in the past. [facility] Medical History Colon cancer screening Lumbar herniated disc Impaired glucose tolerance Hypercholesterolemia Insomnia GERD (gastroesophageal reflux disease) Obesity (BMI 30-39.9) Surgical History History of laminectomy History of arthroscopy of left knee H/O shoulder surgery Family History Father No problems noted. Mother No problems noted. Maternal Uncle Prostate cancer CAD (coronary artery disease) Family/Other High cholesterol Diabetes Maternal Grandfather Prostate cancer Social History Housing: Apartment Alcohol intake: current Alcohol intake frequency: a few times a month Comment: once q 3 months 1-2 glasses Patient Tobacco Use Status: Former Tobacco user Tobacco use type: Cigarette Years Smoked: stopped 18years old e-Cigarette/Vaping Use: Never Used Second Hand Smoke Exposure: No service: No Current occupational status: unemployed and disabled Cognitive needs: No Hearing needs: No Vision needs: Yes Review of Systems Const Denies weight gain and Denies weight loss ENT Reports no additional complaints, Denies dysphagia and Denies odynophagia Card Reports no additional complaints Resp Reports no additional complaints GI Denies abdominal pain, Denies belching, Denies melena, Denies bloating, Denies change in bowel habits, Denies dysphagia, Denies excessive flatus, Denies dyspepsia, Denies heartburn, Denies diarrhea, Denies loose stools, Denies nausea, Denies odynophagia and Denies vomiting Reports no additional complaints Musc Reports no additional complaints Neuro Reports no additional complaints Psych Reports no additional complaints Endo Reports no additional complaints Physical Exam Vital Signs: Last Vital Signs Pulse 64 11/21/24 15:38 BP 128/80 11/21/24 15:38 Pulse Ox 99 11/21/24 15:38 Oxygen Delivery Method Room Air 11/21/24 15:38 BMI result Body Mass Index 31.9 Const General: comfortable and no acute distress Nutritional Appearance: obese Orientation/consciousness: patient oriented x3 Resp Auscultation: clear to auscultation bilaterally Cardio Rate: regular rate GI Inspection: Yes normal to inspection, No distended and Yes obesity Palpation (GI): Soft to palpation, not firm, nontender and No hepatosplenomegaly present Auscultation: normal bowel sounds Rectal Exam - Male: Yes deferred General: Yes no CVA tenderness Back/Spine/Pelvis Back: no CVA tenderness Skin General skin exam: no rashes or lesions noted Neuro General: patient oriented x3 and moves all extremities Assessment & Plan Assessment & Plan (1) Status post sleeve gastrectomy: Code(s): Z90.3 - Acquired absence of stomach [part of] Category: Surgical (2) Colon cancer screening: Code(s): Z12.11 - Encounter for screening for malignant neoplasm of colon Category: Medical (3) GERD (gastroesophageal reflux disease): Code(s): K21.9 - Gastro-esophageal reflux disease without esophagitis Category: Medical Qualifiers: Esophagitis presence: without esophagitis Qualified Code(s): K21.9 - Gastro-esophageal reflux disease without esophagitis Plan Continue pantoprazole daily. Avoid dietary triggers and late night snacking. Staying upright for minimum 3 hours discussed with patient. Patient is following up with bariatrics on his diet. Increase fluid intake and activity to promote better bowel motility. What to expect before during and after procedure discussed with patient. Stressed the importance of good bowel prep and clear liquid diet day before procedure. Message sent to surgical schedulers to book procedure for patient. No issue with anesthesia in the past. I will see patient after procedure. He is agreeable to this plan and verbalizes understanding of instructions. He was given the opportunity to ask questions and all questions answered. Thank you for allowing me to participate in his care Medications: New bisacodyl (Dulcolax (bisacodyl)) take 4 tabs at noon the day before your colonoscopy 20 mg (4 x 5 mg) PO ONCE 1 day 4 tabs 0RF Z12.11 - Encounter for screening for malignant neoplasm of colon polyethylene glycol 3350 (Miralax) As directed by gastroenterology department at [facility] 238 gra ms PO ONCE 238 grams 0RF Z12.11 - Encounter for screening for malignant neoplasm of colon Coding Level of Care Code Est Pt Level 3 (24327) Diagnoses Status post sleeve gastrectomy Z90.3 Colon cancer screening Z12.11 Gastroesophageal reflux disease without esophagitis K21.9 Esophagitis presence: without esophagitis Time Spent (min) 30 Comment 20 minutes spent with patient and additional 10 minutes spent reviewing his records
== END 2024-11-21 16:51 | disposition home or self-care (01) ==
PROVIDERS: PCP Internal Medicine; Visit Provider Nurse Practitioner Family
DX: K21.9 Gastro-esophageal reflux disease without esophagitis (principal); Z01.818 Encounter for other preprocedural examination; Z12.11 Encounter for screening for malignant neoplasm of colon; Z90.3 Acquired absence of stomach [part of]
CPT/HCPCS: 99213

== ENCOUNTER → 2024-11-21 15:37 | Outpatient (BNVA) | payer OTHER, SELFPAY | PROVIDERS: PCP Internal Medicine; Visit Provider Nurse Practitioner Family | DX: Z12.11 Encounter for screening for malignant neoplasm of colon (principal); K21.9 Gastro-esophageal reflux disease without esophagitis; Z90.3 Acquired absence of stomach [part of] | CPT/HCPCS: 99212 ==

== ENCOUNTER 2024-11-22 10:25 | Outpatient (REF) | payer OTHER, SELFPAY | END 2024-11-22 10:26 | disposition home or self-care (01) | LOC: HO.SH 10:25 | PROVIDERS: Visit Provider Internal Medicine | DX: Z01.118 Encounter for examination of ears and hearing with other abnormal findings (principal); H93.293 Other abnormal auditory perceptions, bilateral | CPT/HCPCS: 92557; 92567 ==

== ENCOUNTER 2025-02-08 08:49 | Outpatient (AMB) | payer OTHER, SELFPAY ==
--- NOTE | 2025-02-08 09:02 | ...WebTmpl.AM.BPCHK ---
Intake Intake Visit Reasons: Blood pressure check Allergies milk Adverse Reaction (Mild, Verified 11/21/24 15:38) Heartburn, Diarrhea Coding
[2025-02-08 09:04] VITALS: BP 124/76; PULSE 62; TEMP 36.3; O2SAT 97; BMI 29.0
--- NOTE | 2025-02-08 09:04 | MHC.PC.OV ---
Vital Signs 02/08/25 09:04 Height 6 ft Weight 213 lb 8 oz BMI 29.0 BP 124/76 Blood Pressure Location Lt brachial Position Sitting Pulse 62 Pulse Source Pulse Oximeter Temp 97.3 F Temp Source Temporal Artery Scan Pulse Oximetry (%) 97 Oxygen Delivery Method Room Air Intake Visit Reasons: Blood pressure check Allergies milk Adverse Reaction (Mild, Verified 02/08/25 09:04) Heartburn, Diarrhea Medication List - Last Reconciled 02/08/25 by Noé Montaño MD acetaminophen 325 mg PO BID PRN bisacodyl (Dulcolax (bisacodyl)) 20 mg (4 x 5 mg) PO ONCE 1 day blood pressure monitor (Blood Pressure Kit) As directed fluticasone propionate 50 mcg/actuation 1 spray intranasal DAILY lidocaine 5% 1 patch topical DAILY PRN [id number]-[id number]-[id number]-FA-vit K 45 mg iron- 800 mcg-120 mcg (Bariatric Multivitamins) caps PO omeprazole 20 mg PO DAILY oxycodone-acetaminophen 5-325 mg (Percocet) 1 tab PO .bid PRN 28 days polyethylene glycol 3350 (Miralax) 238 grams PO ONCE tizanidine 4 mg PO DAILY PRN ursodiol mg PO DAILY zolpidem 5 mg PO BEDTIME PRN Tobacco use date assessed: 02/08/25 Dental Screening Dental Screen Date: 02/08/25 Did you have a dental visit in the last 12 months?: No Did you have a dental problem in the last 6 months where you did not have access to dental care?: No Was dental information given to patient?: Patient has dentist HPI Blood pressure check HPI Details back pain still pain but has lost more thatn 70 lbs PFSH Medical History Colon cancer screening Lumbar herniated disc Impaired glucose tolerance Hypercholesterolemia Insomnia GERD (gastroesophageal reflux disease) Obesity (BMI 30-39.9) Surgical History History of laminectomy History of arthroscopy of left knee H/O shoulder surgery Family History Father No problems noted. Mother No problems noted. Maternal Uncle Prostate cancer CAD (coronary artery disease) Family/Other High cholesterol Diabetes Maternal Grandfather Prostate cancer Social History Housing: Apartment Alcohol intake: current Alcohol intake frequency: a few times a month Comment: once q 3 months 1-2 glasses Patient Tobacco Use Status: Former Tobacco user Tobacco use type: Cigarette Years Smoked: stopped 18years old e-Cigarette/Vaping Use: Never Used Second Hand Smoke Exposure: No service: No Current occupational status: unemployed and disabled Cognitive needs: No Hearing needs: No Vision needs: Yes Questionnaire PHQ-9 Over the last 2 weeks, how often have you been bothered by any of the following problems? 1. Little interest or pleasure in doing things: not at all 2. Feeling down, depressed, or hopeless: not at all 3. Trouble falling or staying asleep, or sleeping too much: not at all 4. Feeling tired or having little energy: not at all 5. Poor appetite or overeating: not at all 6. Feeling bad about yourself - or that you are a failure or have let yourself or your family down: not at all 7. Trouble concentrating on things, such as reading the newspaper or watching television: not at all 8. Moving or speaking so slowly that other people could have noticed. Or the opposite - being so fidgety or restless that you have been moving around a lot more than usual: not at all 9. Thoughts that you would be better off or of hurting yourself in some way: not at all Total score: 0 Depression Screening Interpretation: Negative Depression Screening Done: Yes 64107 - PHQ-9 Billing: Yes Source: Developed by Drs. Jose Luis Campbell, Kathrin Biggs, Jaylen Ortiz and colleagues, with an educational raymond from [employer]. Thrive Questionnaire Date Thrive assessed: 02/08/25 I am a: Patient What is your living situation today?: I have a steady place to live Within the past 12 months, did the food you bought not last and you didn't have the money to get more?: Never true Within the past 12 months, did you worry whether your food would run out before you got money to buy more?: Never true Do you have trouble paying for medicines?: No Do you have trouble getting transportation to medical appointments?: No Do you have trouble paying your heating and electricity bill?: No Do you have trouble taking care of your child, family member or friend?: No Do you have trouble with day-to-day activities such as bathing, preparing meals, shopping, managing finances, etc.?: No Are you currently unemployed and looking for a job?: No Are you interested in more education?: Yes Please select the resources that you would like help with: Education Currently or been in a relationship where the following occur: No concerns reported THRIVE Score: 0 AUDIT C Alcohol Use Questionnaire (AUDIT-C) 1. How often do you have a drink containing alcohol?: Monthly or less 2. How many drinks containing alcohol do you have on a typical day when you are drinking?: 1 or 2 3. How often do you have six or more drinks on one occasion?: Never Total Score: 1 CAITLIN-7 AMB Questionnaire CAITLIN-7 Date CAITLIN - 7 assessed: 02/08/25 Feeling nervous, anxious, or on edge: 0 = Not at all Not being able to stop or control worryin = Not at all Worrying too much about different things: 0 = Not at all Trouble relaxin = Not at all Being so restless that it is hard to sit still: 0 = Not at all Becoming easily annoyed or irritable: 0 = Not at all Feeling afraid as if something awful might happen: 0 = Not at all Total CAITLIN-7 score (0-4 normal; 5-9 mild; 10-14 moderate; 15-21 severe): 0 Source: Developed by Drs. Jose Luis Campbell, Kathrin Biggs, Jaylen Ortiz and colleagues, with an educational raymond from [employer]. CAITLIN-7 Assessment Billing CAITLIN-7 Assessment Tool: CAITLIN-7 Assessment 72522 Physical exam (Primary Care) Vital Signs: Last Vital Signs Temp 97.3 F 02/08/25 09:04 Pulse 62 02/08/25 09:04 BP 124/76 02/08/25 09:04 Pulse Ox 97 02/08/25 09:04 Oxygen Delivery Method Room Air 02/08/25 09:04 BMI result Body Mass Index 29.0 Tobacco/Smoking Status: Tobacco use Status Tobacco use date assessed 02/08/25 02/08/25 09:05 Patient Tobacco Use Status Former Tobacco user 02/08/25 09:05 Tobacco use type Cigarette 03/26/25 09:05 e-Cigarette/Vaping Use Never Used 02/08/25 09:05 PHQ-9: PHQ-9 Score PHQ-9: Total score 0 02/08/25 09:50 Depression Screening Interpretation: Negative Thrive Assessment: Date of Thrive Assessment Date Thrive assessed 02/08/25 02/08/25 09:05 Currently or been in a relationship where the following occur: No concerns reported Const General: alert; No acute distress Eyes Conjunctivae: conjunctivae normal Resp Auscultation: clear to auscultation bilaterally Cardio Rate: regular rate Rhythm: regular rhythm GI Inspection: Yes normal to inspection Extrem General: Yes normal to inspection and No edema Results AMB Hemoglobin A1c AMB Hemoglobin A1c 5.5 % Last Edit by Marry Zamudio CMA on 02/08/25 09:27 Results Reviewed Results Reviewed: Laboratory Last Values Hgb A1c (Clinic) 5.5 % (4.0-6.0) 02/08/25 09:27 Coding Level of Care Code Est Pt Level 4 (83068) Diagnoses Status post sleeve gastrectomy Z90.3 CKD (chronic kidney disease) stage 2, GFR 60-89 ml/min N18.2 Primary hypertension I10 Hypertension type: primary hypertension Impaired glucose tolerance R73.02 Hypercholesterolemia E78.00 Gastroesophageal reflux disease without esophagitis K21.9 Esophagitis presence: without esophagitis Additional Codes CAITLIN-7 Assessment Billing - CAITLIN-7 Assessment Tool: CAITLIN-7 Assessment 80708 ([id number]) PHQ-9 - 75725 - PHQ-9 Billing: Yes ([id number]) Assessment & Plan Assessment & Plan (1) Status post sleeve gastrectomy: Comment: 10/2024 Code(s): Z90.3 - Acquired absence of stomach [part of] Category: Surgical Plan: Continue to follow-up with bariatric (2) CKD (chronic kidney disease) stage 2, GFR 60-89 ml/min: Code(s): N18.2 - Chronic kidney disease, stage 2 (mild) Category: Medical Plan: Stable keep well hydrated avoid NSAIDs (3) Hypertension: Code(s): I10 - Essential (primary) hypertension Category: Medical Qualifiers: Hypertension type: primary hypertension Qualified Code(s): I10 - Essential (primary) hypertension Plan: Blood pressure has been in the normal range presently on no medication (4) Impaired glucose tolerance: Code(s): R73.02 - Impaired glucose tolerance (oral) Category: Medical Plan: Decrease the amount of carbohydrate intake, pasta, bread, rice and potatoes are all sugar and that is aside from all the sweet stuff, remember that fruits are good but they are Sweet also. (5) Hypercholesterolemia: Code(s): E78.00 - Pure hypercholesterolemia, unspecified Category: Medical Plan: Avoid fried foods, chicken skin, eggs, butter margarine, pastries and meat. Be it pork or beef they have a lot of cholesterol. (6) GERD (gastroesophageal reflux disease): Code(s): K21.9 - Gastro-esophageal reflux disease without esophagitis Category: Medical Qualifiers: Esophagitis presence: without esophagitis Qualified Code(s): K21.9 - Gastro-esophageal reflux disease without esophagitis Plan: Avoid the foods that causes that usually spicy foods, tomato products, juices, coffee, soda and foods that your sensitive to. After eating do not lie down, allow 3-4 hours before in lie down. And keep the head of bed above 30 degrees to avoid the acid from going up. Continue with pantoprazole/omeprazole Plan History of Present Illness The patient is a 50-year-old male presenting for follow-up care post sleeve gastrectomy surgery and general health review. He reports a 22-pound weight loss since November, having undergone sleeve gastrectomy. The patient is currently managing several chronic conditions, including hypercholesterolemia, GERD, impaired glucose tolerance, obstructive sleep apnea, hypertension, and chronic kidney disease. Following surgery, the patient's GERD is managed with omeprazole instead of pantoprazole. The patient's most recent laboratory results from October show renal function improvement and a normal hemoglobin A1c. LDL levels have decreased to 118. He has no current need for antihypertensive medication, with stabilized blood pressure. The patient reports occasional back pain, attributed to cold weather changes, and uses Tylenol sparingly for headaches. He follows a post-bariatric surgery multivitamin regimen and is prescribed tizanidine and ursodiol. There is a note of occasional constipation for which docusate has been prescribed. Sleep management is currently supported with zolpidem. Lifestyle improvements, including diet and exercise, have been noted. Health Maintenance - Monitoring of glucose tolerance and hemoglobin A1c levels, last reported at 5.5 (normal range). - Observation of LDL cholesterol reduction from 155 to 118. - Follow-up with gastroenterology and bariatric care. - Continuing multivitamin regimen post-bariatric surgery. - Encourage hydration and regular physical activity despite cold weather; awaiting more favorable summer conditions for exercise adjustments. Social History - Reports discomfort with cold weather affecting the frequency of physical activity. - Evident efforts in adhering to a healthier lifestyle with dietary changes and exercise. Review of Systems - Musculoskeletal: Reports back pain associated with cold weather. - General: Denies frequent use of painkillers with Tylenol taken as needed. - Gastrointestinal: Reports occasional constipation. - Neurological: Reports taking zolpidem for sleep. Physical Exam Results - Labs: Hemoglobin A1c 5.5, LDL cholesterol 118 (decreased from 155), renal function improved to 1.2. - Tests and Diagnostics: Monitoring of post-bariatric surgery status. Plan 1. 5 and reduced LDL to 118: Managing musculoskeletal discomfort due to cold weather relies on occasional Tylenol use. The patient is prescribed medications and supplements, including docusate for constipation, multivitamins, tizanidine, ursodiol, and zolpidem for sleep, while remaining motivated toward dietary improvements and exercise despite weather. Ongoing monitoring and future colonoscopy planning reflect continued support and involvement in his overall well-being. Patient was informed and verbally consented to the use of an ambient scribe for clinic note documentation during this visit. Discussion Notes During today's visit, I reviewed the patient's progress post-sleeve gastrectomy, particularly noting the 22-pound weight loss. We discussed the importance of ongoing management of his GERD, impaired glucose tolerance, and hypercholesterolemia. We emphasized the continuation of omeprazole and reviewed current lab results showing improved glucose and cholesterol levels. I advised monitoring renal function with follow-ups as planned with his specialist doctors. Additionally, patient adherence to a multivitamin regimen post-surgery is krishnamurthy, along with hydration and proper diet to support weight management. I discussed the occasional usage of Tylenol for back pain related to weather fluctuation, which does not currently require further analgesic prescribing. We planned the need for a colonoscopy following gastroenterology advice, while actively encouraging exercise and lifestyle changes. The patient was reminded to contact me with any concerns between visits. Patient Instructions - Continue current medication regimen, including multivitamins and omeprazole. - Use docusate as needed for constipation. - Limit Tylenol usage to necessary occasions for headache or back pain. - Follow dietary recommendations and maintain physical activity as weather permits. - Maintain hydration and avoid NSAIDs. - Schedule follow-up in approximately three months or as necessary. - Contact the office for any new symptoms or concerns. Orders: Orders AMB Hemoglobin A1c Today Z13.9 - Encounter for screening, unspecified Medications: New docusate sodium 100 mg PO DAILY 90 caps 0RF K59.01 - Slow transit constipation Refilled oxycodone-acetaminophen 5-325 mg (Percocet) 1 tab PO .bid PRN 56 tabs 0RF pain 28 days M51.26 - Other intervertebral disc displacement, lumbar region zolpidem 5 mg PO BEDTIME PRN 30 tabs 0RF insomnia G47.00 - Insomnia, unspecified
== END 2025-02-08 10:00 | disposition home or self-care (01) ==
LOC: HO.HMCH 08:49
PROVIDERS: PCP Internal Medicine; Visit Provider Internal Medicine
DX: Z90.3 Acquired absence of stomach [part of] (principal); I12.9 Hypertensive chronic kidney disease with stage 1 through stage 4 chronic kidney disease, or unspecified chronic kidney disease; N18.2 Chronic kidney disease, stage 2 (mild); R73.02 Impaired glucose tolerance (oral); E78.00 Pure hypercholesterolemia, unspecified; K21.9 Gastro-esophageal reflux disease without esophagitis; Z13.9 Encounter for screening, unspecified

== ENCOUNTER → 2025-02-08 08:49 | Outpatient (BNVA) | payer OTHER, SELFPAY | PROVIDERS: PCP Internal Medicine; Visit Provider Internal Medicine | DX: I12.9 Hypertensive chronic kidney disease with stage 1 through stage 4 chronic kidney disease, or unspecified chronic kidney disease (principal); N18.2 Chronic kidney disease, stage 2 (mild); R73.02 Impaired glucose tolerance (oral); E78.00 Pure hypercholesterolemia, unspecified; K21.9 Gastro-esophageal reflux disease without esophagitis; Z90.3 Acquired absence of stomach [part of] | CPT/HCPCS: 83036; 96127; 99212 ==

== ENCOUNTER 2025-05-22 06:43 | Outpatient (REF) | payer OTHER, SELFPAY ==
--- OUTSIDE RECORDS SUMMARY | 2025-05-22 06:46 | XMS_ITS | Patient Health Record ---
Author Organization [facility] Address [address] [place] [address] Care Team Providers Care Mini Lab Operator Name Role Phone Noé Montaño MD Primary Care Provider Jose Luis Mcdermott [phone] Allergies Allergen (clinical drug ingredient) Drug/Non Drug Allergy documented on EMR Reaction Allergy Type Onset Date Status lactose intolerance (uncoded) Unknown Allergy Active Reason For Referral No Information Medications Medication SIG (Take, Route, Frequency, Duration) Notes Start Date End Date Status Zolpidem & Diet Manage Prod 5MG 1 PRN Active Citrucel prn constipation Act allen Omeprazole 20MG 1 QOD Acti ve Mag-Oxide 400MG Acti ve Problems Problem Type SNOMED Code ICD Code Onset Dates Problem Status W/U Status Risk Notes Problem Heartburn ([id number]) Heartburn (787.1) Active confirmed Problem GERD (gastroesophag eal reflux disease) (530.81) Active confirmed Plan Of Treatment Future Test Test Name Order Date UPPER GI ENDOSCOPY 02/03/2014 Insurance Providers Payer Name Payer Address Payer Phone Subscriber Number Group Number Insured Name Patient Relationship to Insured Coverage Start Date Coverage End Date [facility] [address] [place] [address] [id number] KEYUR HOLLAND Self - patient is the insured Medical (General) History Medical History History ICD Code Hypertension-on no meds Denies MD,DM,CVA,Lung disease,renal dise ase GERD Depression--off meds Surgical History Surgery Date(Month/Year) shoulder surgery knee surgery back surgery
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
--- OUTSIDE RECORDS SUMMARY | 2025-05-22 06:46 | XMS_ITS | Data Portability ---
Author Organization [facility] [place] [employer] [facility] Address [address] [place] [phone] Care Team Providers Care Collector Of Port Name Role Phone HIM CCA OTHER Assessment Encounter Date Assessment Date Assessment LastModified by Organization Details LastModified Time 09/08/2024 09/08/2024 I have reviewed and agree with the assessment and plan as documented by the investment specialist. I provided real-time medical direction for this encounter and was immediately available to provide additional phone-based assistance as needed. History as noted in EMR and by investment specialist. I would add / emphasize: Patient seen for cough productive of mucus, nasal congestion and sore throat with some thoracic discomfort with persistent coughing. Symptoms have been present since Thursday and have been worsening. No baseline history of lung pathology. AVSS, afebrile and well-appearing saturating well on room air per report. [id number] COVID test negative. Doubt ACS or VTE. Suspect mild URI and recommended symptomatic management and provided guidance on duration of illness. Reviewed red flags that should prompt ED evaluation and patient voiced understanding. To follow-up with primary care. pallfather Not available 09/08/2024 17:43:05 Plan of Treatment Reminders Order Date Submit Date Provider Last Modified By Organization Details Last Modified Time Details Appointments None recorded. Lab rapid SARS CoV 2 Ag, QL IA, respiratory specimen [address] [facility], [address] [place] [address], [phone] 18:14:55 Referral None recorded. Procedures None recorded. Surgeries None recorded. Imaging None recorded. Medication Orders None recorded. Patient TargetsNo targets recorded. Patient InstructionsNo instructions recorded. Reason for Referral None Reported. Results Created Date Observation Date Name Description Value Unit Range Abnormal Flag Note LastModifiedBy Organization Detail LastModifiedTime Result Notes None recorded. Medical Equipment None Reported. Medications Name Sig Start Date Stop Date Status Note LastModified by Organization Details LastModified Time tizanidine 4 mg tablet TAKE 1 TABLET BY MOUTH EVERY DAY active Not Available Not Available No t Available valacyclovir 1 gram tablet TAKE 1 TABLET BY MOUTH THREE TIMES A DAY X 30 DAYS UNTIL BLISTERS CRUST OVER active Not Available Not Available N ot Available senna 8.6 mg tablet TAKE 2 TABLETS BY MOUTH DAILY AT BEDTIME NEEDED FOR CONSTIPATIO N active Not Available Not Available No t Available oxycodone-ac etaminophen 5 mg-325 mg tablet TAKE 1 TABLET ORALLY TWICE A DAY NEEDED FOR PAIN FOR 28 DAYS active Not Available Not Available Not Available lidocaine 5 % topical patch APPLY 1 PATCH TOPICALLY DAILY LEAVE ON MOST PAINFUL AREA FOR UP TO 12 HRS active Not Available Not Available No t Available gabapentin 300 mg capsule TAKE 1 CAPSULE BY MOUTH THREE TIMES A DAY active Not Available Not Available Not Available omeprazole 20 mg capsule,regla yed release TAKE 1 CAPSULE BY MOUTH EVERY DAY active Not Available Not Available No t Available zolpidem 5 mg tablet TAKE 1 TABLET BY MOUTH AT BEDTIME NEEDED FOR INSOMNIA active Not Available Not Available No t Available fluticasone propionate 50 mcg/actuatio n nasal spray,suspen janet USE 1 SPRAY IN EACH NOSTRIL DAILY active Not Available Not Available No t Available hydrochlorot hiazide 12.5 mg tablet TAKE 1 TABLET BY MOUTH EVERY DAY active Not Available Not Available No t Available cholecalcife rol (vitamin D3) 1,250 mcg (50,000 unit) capsule TAKE 1 CAPSULE BY MOUTH ONE TIME PER WEEK active Not Available Not Available No t Available Vitals Date Recorded Oxygen saturation Oxygen saturation in Arterial blood by Pulse oximetry Heart rate Body temperature Respiratory rate Systolic And Diastolic Provider Name and Address Organization Details Last Updated DateTime 4 99 % 99 % 99 /min 98.3 [degF] 18 /min 154/90 mm[Hg] Not Available [facility] - production 10:54:42 Social History None recorded. Functional Status None recorded. Mental Status None recorded. Family History Nothing Reported. Medical History No medical history recorded. Past Encounters Encounter ID Performer Location Encounter Start Date Encounter Closed Date Diagnosis/Indication Diagnosis SNOMED-CT Code Diagnosis ICD10 Code Diagnosis Note [id number] López Cortez MD Main - [facility] [address] [place] [phone] 09/08/2024 10:54:39 09/08/2024 22:41:25 Cough 67251094 R05.9 Health Concerns Section Related Observation LastModified by Organization Detai ls LastModified Time None Recorded Concern Status LastModified by Organization Details LastModified Time None Recorded Advance Directives Directive None Recorded Payers Insurance Date Sequence Insurance Name Policy Number Policy Downs Covered Member ID Downs Member ID Guarantor Name 09/07/[address] [facility] - DOS ON OR AFTER 2023 - DUAL ELIGIBLE - [facility] OPTIONS AND ONE CARE (MEDICARE REPLACEMENT/ADV ANTAGE - HMO) Anuj Atkins [id number] Anuj Rodriguez Atkins Notes Date Note Type Note Provider Name and Address Organization Details Recorded Time 09/08/2024 text/html HPI: Chronic Pain (shoulders, knees, back), GERD, LEFTY, Insomnia, +smoker ................... ................... ................... ................... ................... ................... ................... ........ CRC Nurse Triage Notes (Neto Mojica): Chief Complaints: URI Comments: Reviewed HPI [employer] Organization Information for Melania Horn Business Legal Name: [employer]. Address: [address] [place] [id number], Animal Laboratory Helper: Ney Nava MD CLIA No.: [id number] [employer] POC Test Results from [facility] Rapid COVID antigen (10:59:04) COVID: - ................... ................... ................... ................... ................... ................... ................... ........ [employer] Note From Melania Horn: 49 YOM sitting on his couch, alert and oriented x4 to person, place, time and event. Pt has a patent airway, speaking in complete sentences. Respiratory effort non-labored, no nasal flaring or intercostal muscle use noted. Lungs sounds are clear and equal bilaterally. Patient is complaining of sharp sternal chest pain getting worse on cough, increased mucus production, nasal congestion, and sore throat. Patient stated that the symptoms started on Thursday and progressively got worse today. Patient has been taking Tylenol every six hours. Patient has also started taking cough syrup, Tussin last night. Patient took his prescribed Percocet about 15 to 20 minutes prior to arrival. Patient informed that these symptoms had happened before during season change. Patient thinks that he might have seasonal allergies. Patient has chronic abdominal pain. Patient denies any frequency or changes in his bowel or urine. Patient denies any headache, dizziness, blurry, vision, shortness of breath, chills, fever, or any other complains. No discoloration, bruises, contusion, abrasions, redness, swelling, pedal edema, bleeding, or any other injury noted. Vitals are assessed and recorded. Rapid Covid antigen test performed revealed negative Dr. hastings. Patient is advice to try drinking hot tea with honey, and continue taking his cough syrup tussin as per doctors recommendations. Patient is left under the care of his . SC8 clear without any incidents. ................... ................... ................... ................... ................... ................... ................... ........ Disposition: Fulfilled López Cortez MD [address] [facility],[address], [place], [id number], CATIE - CARROLL MAHAJAN 09/08/2024 17:43:16
--- OUTSIDE RECORDS SUMMARY | 2025-05-22 06:46 | XMS_ITS | Clinical Summary ---
Author Organization [facility] Address [address] [facility] [address] [place] [address] Phone Care Team Providers Care Film Drying Machine Operator Name Role Phone Noé Montaño MD Primary Care Provider Allergies Active Allergy Reactions Criticality Noted Date Comments Lactose GI intolerance 03/19/2022 Lisinopril Other (see comments) 06/05/2021 Milk (Cow) Other (see comments) 06/05/2021 Medications omeprazole OTC (PriLOSEC OTC) 20 MG EC tablet Take 1 tablet by mouth 1 (one) time each day 11/25/2019 Active oxyCODONE-aceta minophen (PERCOCET) 5-325 MG per tablet Take 1 tablet by mouth 2 (two) times a day Active tiZANidine (ZANAFLEX) 4 MG tablet Take 1 tablet by mouth 1 (one) time each day Active zolpidem (AMBIEN) 5 MG tablet Take 1 tablet by mouth every night Active Docusate Sodium (DSS) 100 MG capsule Take 100 mg by mouth 11/23/2013 Active fluticasone (FLONASE) 50 MCG/ACT nasal spray USE 1 SPRAY IN EACH NOSTRIL DAILY 03/13/2022 Active Active Problems Problem Noted Date Diagnosed Date Chronic low back pain 09/11/2022 Acute nontraumatic kidney injury 06/05/2021 Essential hypertension 06/05/2021 Labile hypertension due to being in a clinical e nvironment 06/05/2021 Family History Medical History Relation Comments Hypertension Mother Relation Status Comments Father Alive Mother Alive Social History Tobacco Use Types Packs/Day Years Used Date Smoking Tobacco: Never Smokeless Tobacco: Never Tobacco Cessation:Counseling Given: Not Answered Alcohol Use Standard Drinks/Week Comments No 0 (1 standard drink = 0.6 oz pur e alcohol) Sex and Gender Information Value Date Recorded Sex Assigned at Not on file Legal Sex Male 5:06 PM EST Gender Identity Not on file Sexual Orientation Not on file Last Filed Vital Signs Vital Sign Reading Time Taken Comments Blood Pressure 126/90 09/15/2022 2:09 PM EDT Pulse 75 03/19/2022 11:02 AM EDT Temperature - - Respiratory Rate - - Oxygen Saturation 97% 03/19/2022 11:02 AM EDT Inhaled Oxygen Concentration - - Weight 121 kg (266 lb 12.8 oz) 09/15/2022 2:09 P M EDT Height 182.9 cm (6') 11/30/2020 12:00 PM EST Body Mass Index 36.18 11/30/2020 12:00 PM EST Plan of Treatment Health Maintenance Due Date Last Done Comments Hepatitis B Vaccine (1 of 3 - 19+ 3-dose series) 01/23 Pneumococcal Vaccine: Peds ( 0 to 5 Years) and At-Risk Patients (6 to 49 Years) (1 of 2 - PCV) 01/24/1996 Influenza Vaccine (#1) 2025 Insurance ([id number]) [place] [phone] ([id number]) Care Teams Film Drying Machine Operator Relationship Specialty Start Date End Date Noé Montaño MD [facility] [address] [place], [place] PCP - General 11/26/20
[2025-05-22 07:14] LABS: MANUAL DIFF FLAG NO
[2025-05-22 07:56] LABS: Hematocrit 45.7 % (42.0-52.0); Hemoglobin 15.2 g/dl (14.0-18.0); Imm Gran Abs Auto 0.01 X10*3/uL (0.00-0.03); Imm Gran Pct Auto 0.1 % (0.0-0.4); Lymphocytes Absolute Auto 2.2 X10*3/uL (1.2-4.9); Mean Corpuscular HGB Conc 33.3 g/dl (31.0-36.0); Mean Corpuscular Hemoglobin 28.6 pg (27.0-33.0); Mean Corpuscular Volume 85.9 fL (80.0-98.0); NRBC Abs Auto 0.000 X10*3/uL (0.0-0.012); NRBC Pct Auto 0.0 /100WBC (0.0-0.2); Platelet Count 174 X10*3/uL (160-400); Red Blood Count 5.32 X10*6/uL (4.60-5.80); White Blood Count 7.8 X10*3/uL (4.8-10.8)
[2025-05-22 08:50] LABS: Anion Gap 11 (12-20); Blood Urea Nitrogen 21 mg/dL (9-16); Carbon Dioxide 27 mmol/L (22-29); Chloride 106 mmol/L (96-108); Estimated Glomerular Filt Rate > 60; Potassium 4.3 mmol/L (3.3-5.1); Sodium 140 mmol/L (135-145)
[2025-05-22 10:03] LABS: Protein/Creatinine Ratio, Ur 0.04 (<0.2); Total Protein Urine Random 10 mg/dL (<12)
== END 2025-05-22 06:44 | disposition home or self-care (01) ==
LOC: HO.LAB 06:43
PROVIDERS: Absent Provider Internal Medicine Nephrology; PCP Internal Medicine; Visit Provider Internal Medicine
DX: I12.9 Hypertensive chronic kidney disease with stage 1 through stage 4 chronic kidney disease, or unspecified chronic kidney disease (principal); N18.2 Chronic kidney disease, stage 2 (mild); R73.02 Impaired glucose tolerance (oral)
CPT/HCPCS: 36415; 80051; 82565; 82570; 84156; 84520; 85025

== ENCOUNTER 2025-05-25 09:58 | Outpatient (AMB) | payer OTHER, SELFPAY ==
--- NOTE | 2025-05-25 10:11 | HO.NEPHOV ---
Vital Signs 05/25/25 10:12 Height 6 ft Weight 206 lb BMI 27.9 BP 100/72 Blood Pressure Location Lt brachial Position Sitting Pulse 68 Pulse Source Pulse Oximeter Pulse Oximetry (%) 98 Oxygen Delivery Method Room Air Intake Visit Reasons: 7 mnts f/u-Conf Manager Of Housekeeping Required: No Accompanied by: Self / Same As Patient Allergies milk Adverse Reaction (Mild, Verified 05/25/25 10:14) Heartburn, Diarrhea HPI Comments Details: I had the privilege of seeing Anuj in follow-up of his high serum creatinine. He does not have any hematuria or proteinuria. He had some family stressors and his blood pressure was found to be marginally high at that time. He was initiated on HCTZ by the primary care physician, after which he has been getting intermittent dizziness. He has put a hold on taking that medication for now. He has no edema. His serum creatinine has been fluctuating. He has history of UTIs as a child. He denies using excessive nonsteroidal anti-inflammatories or taking creatine. He does not have any nausea, vomiting, diarrhea, chest pain, shortness of breath, proximal nocturnal dyspnea, orthopnea, pedal edema. He underwent gastric sleeve surgery and has lost significant weight. Otherwise he feels well. [facility] Medical History Colon cancer screening Lumbar herniated disc Impaired glucose tolerance Hypercholesterolemia Insomnia GERD (gastroesophageal reflux disease) Obesity (BMI 30-39.9) Surgical History History of laminectomy History of arthroscopy of left knee H/O shoulder surgery Family History Father No problems noted. Mother No problems noted. Maternal Uncle Prostate cancer CAD (coronary artery disease) Family/Other High cholesterol Diabetes Maternal Grandfather Prostate cancer Social History Housing: Apartment Alcohol intake: current Alcohol intake frequency: a few times a month Comment: once q 3 months 1-2 glasses Patient Tobacco Use Status: Former Tobacco user Tobacco use type: Cigarette Years Smoked: stopped 18years old e-Cigarette/Vaping Use: Never Used Second Hand Smoke Exposure: No service: No Current occupational status: unemployed and disabled Cognitive needs: No Hearing needs: No Vision needs: Yes Review of Systems Const All systems reviewed & are unremarkable except as noted in HPI and below Physical Exam Vital Signs: Last Vital Signs Pulse 68 05/25/25 10:12 BP 100/72 05/25/25 10:12 Pulse Ox 98 05/25/25 10:12 Oxygen Delivery Method Room Air 05/25/25 10:12 BMI result Body Mass Index 27.9 Const General: comfortable and no acute distress Orientation/consciousness: patient oriented x3 HEENT Head: Yes normocephalic Mouth: Normal oral and palatal mucosa present Eyes EOM: EOMs intact bilaterally Neck Neck: Yes supple Resp Auscultation: clear to auscultation bilaterally Cardio Jugular venous distension: no JVD Rate: regular rate GI Palpation (GI): Soft to palpation Auscultation: normal bowel sounds General: Yes no CVA tenderness Back/Spine/Pelvis Back: no CVA tenderness Skin General skin exam: no rashes or lesions noted Neuro General: patient oriented x3 and moves all extremities Extrem General: Yes no pedal edema Results Reviewed Nephrology Results: Hgb, (14.0-18.0) 15.2 g/dl 05/22/25 WBC, (4.8-10.8) 7.8 X10*3/uL 05/22/25 Plt Count, (160-400) 174 X10*3/uL 05/22/25 Sodium, (135-145) 140 mmol/L 05/22/25 Potassium, (3.3-5.1) 4.3 mmol/L 05/22/25 Chloride, (96-108) 106 mmol/L 05/22/25 Carbon Dioxide, (22-29) 27 mmol/L 05/22/25 BUN, (9-16) 21 mg/dL H 05/22/25 Creatinine, (0.5-1.4) 0.91 mg/dL 05/22/25 Calcium, (8.4-10.2) 9.6 mg/dL 10/25/24 Urine Creatinine 243.44 mg/dL 05/22/25 Protein/Creatinin Ratio, (<0.2) 0.04 05/22/25 Renal US 02/25/24 Assessment & Plan Assessment & Plan (1) Hypertension: Code(s): I10 - Essential (primary) hypertension Category: Medical Qualifiers: Hypertension type: primary hypertension Qualified Code(s): I10 - Essential (primary) hypertension Plan Anuj has higher serum creatinine which has been fluctuant. It can be due to his high muscle mass or due to some drop of his GFR at some point in his life due to tubular injury. He has history of UTI as a child. His previous imaging studies has not shown up any structural abnormality. He should maintain good hydration and avoid nonsteroidal anti-inflammatories. He had Dr Long operated on him for weight loss . I did not make any medication changes today. Answered all questions. Orders: Orders Protein Creatinine Ratio, Ur 1 Year I10 - Essential (primary) hypertension Blood Urea Nitrogen 1 Year I10 - Essential (primary) hypertension Creatinine 1 Year I10 - Essential (primary) hypertension Electrolytes 1 Year I10 - Essential (primary) hypertension Calcium 1 Year I10 - Essential (primary) hypertension Coding Level of Care Code Est Pt Level 4 (75333) Diagnoses Primary hypertension I10 Hypertension type: primary hypertension
[2025-05-25 10:12] VITALS: BP 100/72; PULSE 68; O2SAT 98; BMI 27.9
--- OUTSIDE RECORDS SUMMARY | 2025-05-25 10:35 | XMS_ITS | Patient Health Record ---
Author Organization [facility] Address [address] [place] [address] Care Team Providers Care Cashier Associate Name Role Phone Noé Montaño MD Primary Care Provider Jose Luis Mcdermott [phone] Allergies Allergen (clinical drug ingredient) Drug/Non Drug [...] Status W/U Status Risk Notes Problem Heartburn (51116562) Heartburn (787.1) Active confirmed Problem GERD (gastroesophag eal reflux disease) (530.81) Active confirmed Plan Of Treatment Future Test Test Name Order Date UPPER GI ENDOSCOPY 02/03/2014 Insurance Providers Payer Name Payer Address Payer Phone Subscriber Number Group Number Insured Name Patient Relationship to Insured Coverage Start Date Coverage End Date [facility] [address] [place] [address] [id number] KEYUR HOLLAND Self - patient is the insured Medical (General) History Medical History History ICD Code Hypertension-on no meds Denies [place],DM,CVA,Lung disease,renal dise ase GERD Depression--off meds Surgical History Surgery Date(Month/Year) shoulder surgery knee surgery back surgery
--- OUTSIDE RECORDS SUMMARY | 2025-05-25 10:35 | XMS_ITS | Clinical Summary ---
Author Organization [facility] Address [address] [place] [address] Phone Care Team Providers Care Senior Internal Auditor Name Role Phone Noé Montaño MD Primary Care Provider [phone] Allergies Active Allergy Reactions Criticality Noted Date [...] PM EDT Office Visit Bariatric Surgery - [address] [place] [address] Mandi Reddy PA Overweight (BMI [...] AM EDT Office Visit Bariatric Surgery - [place] [address] [place] [id number] Mandi Reddy PA [address] [place] [address] Health Maintenance Due Date Last Done Comments Hepatitis B Vaccines (1 of 3 - 19+ 3-dose series) 01/24/1996 Colorectal Cancer Screening: Colonoscopy 12/11/2023 Depression Screening 12/11/2023 HIV Screening 12/11/2023 Hepatitis C Screening 12/11/2023 Medicare Annual Wellness Visit 12/11/2023 Social Influencers of Health Screening 12/11/2023 COVID-19 Vaccine ( season) 2024 09/27/2022, 12/13/2021, 04/03/2021, Additional history exists Influenza Vaccine (#1) 2025 09/14/2015 DTaP,Tdap,and Td Vaccines (2 - [...] and At-Risk Patients (6 to 49 Years) Aged Out No longer eligible based [...] LAB CHEMISTRY METHOD 04/17/2025 7:30 PM EDT [facility] TIBC 330 250 - 450 mcg/dL LAB CHEMISTRY METHOD 04/17/2025 7:30 PM EDT [facility] Iron Saturation 24 20 - 50 % LAB CHEMISTRY METHOD 04/17/2025 7:30 PM EDT [facility] Blood Venous blood specimen / Unknown Venipuncture / Unknown 04/17/2025 2:15 PM EDT 04/17/2025 2:15 PM EDT Mandi SANTO LAB BLOOD ORDERABLES Final R esult [facility] [address] [place] [address], [place] [phone] * Zinc (04/17/2025 2:15 PM EDT) Zinc 87 60 - 130 ug/dL 04/20/2025 12:27 PM EDT [facility] Comment: Elevated results may be due to sample collected in a non-certified trace element-free tube. This test was developed and the performance characteristics determined by [facility]. It has not been cleared or approved by the FDA. The laboratory is regulated under CLIA as qualified to perform high-complexity testing. This test is used for patient testing purposes. It should not be regarded as investigational or for research. Test performed at [facility], [address], [place] [address] Isa Gary MD, PhD - Coarse Wire Drawer Blood Venous blood specimen / Unknown Venipuncture / Unknown 04/17/2025 2:15 PM EDT 04/17/2025 2:15 PM EDT Mandi SANTO LAB BLOOD ORDERABLES Final R esult Performing Organization Address City/[facility]/ZIP Co de Phone Number [facility] [address] [place], [place] [id number] * (ABNORMAL) Selenium serum (04/17/2025 2:15 PM EDT) Selenium 165(H) 63 - 160 mcg/L 04/21/2025 10:57 PM EDT [facility] Comment: This test was developed and its analytical performance characteristics have been determined by [employer] [place], [place]. It has not been cleared or approved by the U.S. Food and Drug Administration. This assay has been validated pursuant to the CLIA regulations and is used for clinical purposes. Test Performed by [facility], [facility], [address] [place] [address] Yared Longoria M.D., Ph.D., Director of Laboratories , CLIA [id number] Blood Venous blood specimen / Unknown Venipuncture / Unknown 04/17/2025 2:15 PM EDT 04/17/2025 2:15 PM EDT Result [facility] Mandi SANTO LAB BLOOD ORDERABLES Final R esult Performing Organization Address [facility]/ZIP Co de Phone Number [facility] [address] [place] [address] * Vitamin D 25 hydroxy (04/17/2025 2:15 PM EDT) Vit D, 25-Hydroxy 40.6 30.0 - 80.0 ng/mL LAB CHEMISTRY METHOD 04/17/2025 7:20 PM EDT [facility] Blood Venous blood specimen / Unknown Venipuncture / Unknown 04/17/2025 2:15 PM EDT 04/17/2025 2:15 PM EDT Mandi SANTO LAB BLOOD ORDERABLES Final R esult [facility] ([facility]) [facility] [address] [place] [address], * Vitamin B1 (04/17/2025 2:15 PM EDT) Vitamin B1 Whole Blood 68 38 - 122 ug/L 04/21/2025 7:55 AM EDT [facility] Comment: This test was developed and the performance characteristics determined by [facility]. It has not been cleared or approved by the FDA. The laboratory is regulated under CLIA as qualified to perform high-complexity testing. This test is used for patient testing purposes. It should not be regarded as investigational or for research. Test performed at [facility], [address] [address] Isa Gary MD, PhD - Coarse Wire Drawer Blood Venous blood specimen / Unknown Venipuncture / Unknown 04/17/2025 2:15 PM EDT 04/17/2025 2:15 PM EDT Mandi SANTO LAB BLOOD ORDERABLES Final R esult [facility] [address] [place] [address] * Vitamin B6 (04/17/2025 2:15 PM EDT) Vitamin B6 (Pyridoxine) Level 44 5 - 50 ug/L 04/21/2025 12:35 PM EDT [facility] Comment: This test was developed and the performance characteristics determined by [facility]. It has not been cleared or approved by the FDA. The laboratory is regulated under CLIA as qualified to perform high-complexity testing. This test is used for patient testing purposes. It should not be regarded as investigational or for research. Test performed at [facility], [address] [facility], [place] [address] Isa Gary MD, PhD - Coarse Wire Drawer Blood Venous blood specimen / Unknown Venipuncture / Unknown 04/17/2025 2:15 PM EDT 04/17/2025 2:15 PM EDT Mandi SANTO LAB BLOOD ORDERABLES Final R esult [facility] [address] [place] [address] * (ABNORMAL) Folate (04/17/2025 2:15 PM EDT) Pathologist [facility] Folate >20.0(H) 2.8 - 17.0 ng/ml LAB CHEMISTRY METHOD 04/17/2025 7:30 PM EDT [facility] Blood Venous blood specimen / Unknown Venipuncture / Unknown 04/17/2025 2:15 PM EDT 04/17/2025 2:15 PM EDT Mandi SANTO LAB BLOOD ORDERABLES Final R esult Performing Organization Address [facility]/ZIP Co de Phone Number [facility] [address] [place] [address], [place] [phone] * Vitamin B12 (04/17/2025 2:15 PM EDT) [facility] Vitamin B-12 531 250 - 900 pcg/mL LAB CHEMISTRY METHOD 04/17/2025 7:30 PM EDT [facility] Blood Venous blood specimen / Unknown Venipuncture / Unknown 04/17/2025 2:15 PM EDT 04/17/2025 2:15 PM EDT us Mandi SANTO LAB BLOOD ORDERABLES Final R esult [facility] [address] [place] [address], [place] [phone] * Comprehensive metabolic panel (04/17/2025 2:15 PM EDT) Sodium 141 133 - 145 mmol/L LAB CHEMISTRY METHOD 04/17/2025 7:30 PM [facility] Potassium 4.5 3.5 - 5.5 mmol/L LAB CHEMISTRY METHOD 04/17/2025 7:30 PM [facility] Chloride 106 96 - 110 mmol/L LAB CHEMISTRY METHOD 04/17/2025 7:30 PM [facility] CO2 28 21 - 32 mmol/L LAB CHEMISTRY METHOD 04/17/2025 7:30 PM [facility] Anion Gap 7 3 - 11 LAB CHEMISTRY METHOD 04/17/2025 7:30 PM [facility] Glucose 94 70 - 100 mg/dL LAB CHEMISTRY METHOD 04/17/2025 7:30 PM [facility] BUN 14 5 - 25 mg/dL LAB CHEMISTRY METHOD 04/17/2025 7:30 PM [facility] Creatinine 1.18 0.70 - 1.30 mg/dL LAB CHEMISTRY METHOD 04/17/2025 7:30 PM [facility] eGFR 76 >=60 mL/min/1. 73m2 LAB CHEMISTRY METHOD 04/17/2025 7:30 PM [facility] Comment:Calculation based on the Chronic Kidney Disease Epidemiology Collaboration (CKD-EPI) equation refit without adjustment for race. BUN/Creatinine Ratio 11.9 LAB CHEMISTRY METHOD 04/17/2025 7:30 PM [facility] Calcium 9.1 8.5 - 10.5 mg/dL LAB CHEMISTRY METHOD 04/17/2025 7:30 PM [facility] AST (SGOT) 18 10 - 42 unit/L LAB CHEMISTRY METHOD 04/17/2025 7:30 PM [facility] ALT (SGPT) 27 10 - 60 unit/L LAB CHEMISTRY METHOD 04/17/2025 7:30 PM [facility] Alkaline Phosphatase 104 42 - 121 unit/L LAB CHEMISTRY METHOD 04/17/2025 7:30 PM EDT [facility] Total Protein 7.0 6.0 - 8.0 g/dL LAB CHEMISTRY METHOD 04/17/2025 7:30 PM EDT [facility] Albumin 3.7 3.2 - 5.0 g/dL LAB CHEMISTRY METHOD 04/17/2025 7:30 PM EDT [facility] Total Bilirubin 0.5 0.0 - 1.4 mg/dL LAB CHEMISTRY METHOD 04/17/2025 7:30 PM EDT [facility] Blood Venous blood specimen / Unknown Venipuncture / Unknown 04/17/2025 2:15 PM EDT 04/17/2025 2:15 PM EDT Mandi SANTO LAB BLOOD ORDERABLES Final R esult [facility] [address] [place] [address], * (ABNORMAL) Lipid panel (11/26/2023) LDL/HDL Ratio 5(A) 0 - 4 Triglycerides 292(A) 0 - 150 mg/dL Cholesterol 252(A) 0 - 200 mg/dL HDL 51 >=40 mg/dL LDL Cholesterol 143(A) 0 - 100 mg/dL Blood Venous blood specimen / Unknown Historical Provider LAB BLOOD ORDERABLES Yancy l Result from Last 3 Months or Most Recently Relevant to Health Maintenance Insurance [facility] [place] MEDICARE Member Subscriber Plan / Payer (Ef fective 2020-Present) Name:KEYUR ATKINS Relation to Subscriber:Self Name:Keyur Atkins Payer ID:[id number] Group ID:[id number] Type:Not on file Address: [address] [place] [phone] Advance Directives * Full Code - Default [...] currently active code status orders. Care Teams Senior Internal Auditor Relationship Specialty Start Date End Date Noé Montaño MD [address] [place] [address] [address] [facility] [place] [address] PCP - General 04/03/23
--- OUTSIDE RECORDS SUMMARY | 2025-05-25 10:35 | XMS_ITS | Data Portability ---
Author Organization [facility] Address [address] [place] [phone] Care Team Providers Care Casing Soaker Name Role Phone HIM CCA OTHER Assessment Encounter Date Assessment Date Assessment LastModified by Organization Details LastModified Time 09/08/2024 09/08/2024 I have reviewed and agree with the assessment and plan as documented by the director rehabilitation program. I provided real-time medical direction for this encounter and was immediately available to provide additional phone-based assistance as needed. History as noted in EMR and by director rehabilitation program. I would add / emphasize: Patient seen for cough productive of mucus, nasal congestion and sore throat with some thoracic discomfort with persistent coughing. Symptoms have been present since Thursday and have been worsening. No baseline history of lung pathology. AVSS, afebrile and well-appearing saturating well on room air per report. [id number] COVID test negative. Doubt ACS or VTE. [...] QL IA, respiratory specimen 2023 024 [facility], [address] [place] [address], [phone] 18:14:55 Referral None recorded. Procedures None recorded. [...] SNOMED-CT Code Diagnosis ICD10 Code Diagnosis Note [id number] López Cortez MD Main - instED [address] [place] [phone] 09/08/2024 10:54:39 09/08/2024 22:41:25 Cough [id number] R05.9 Health Concerns Section Related Observation LastModified by Organization Detai ls LastModified Time None Recorded Concern Status LastModified by Organization Details LastModified Time None Recorded Advance Directives Directive None Recorded Payers Insurance Date Sequence Insurance Name Policy Number Policy Downs Covered Member ID Downs Member ID Guarantor Name 09/07/2024 1 [facility] - DOS ON OR AFTER 2023 - DUAL ELIGIBLE - SKILLED NURSING OPTIONS AND ONE CARE (MEDICARE REPLACEMENT/ADV ANTAGE - HMO) Anuj Atkins [id number] Anuj Rodriguez Atkins Notes Date Note Type Note Provider Name and Address Organization Details Recorded Time 09/08/2024 text/html HPI: Chronic Pain (shoulders, knees, back), GERD, LEFTY, Insomnia, +smoker ................... ................... ................... ................... ................... ................... ................... ........ CRC Nurse Triage Notes (Neto Mojica): Chief Complaints: URI Comments: Reviewed HPI Configuration Management Administrator Organization Information for [facility] Business Legal Name: [employer]. Address: [address] [place] [address], Drop Wire Aliner: Ney Nava MD CLIA No.: [id number] Configuration Management Administrator POC Test Results from [facility] Rapid COVID antigen (10:59:04) COVID: - ................... ................... ................... ................... ................... ................... ................... ........ Configuration Management Administrator Note From [facility]: 49 YOM sitting [...] ........ Disposition: Fulfilled López Cortez MD [address] [facility],[address], [place], [address], CATIE - CARROLL MAHAJAN 09/08/2024 17:43:16
--- OUTSIDE RECORDS SUMMARY | 2025-05-25 10:35 | XMS_ITS | Clinical Summary ---
Author Organization [facility] Address [address] [facility] [address] [place] [address] Phone Care Team Providers Care Buckle Gluer Name Role Phone Noé Montaño MD Primary Care Provider [phone] Allergies Active Allergy Reactions Criticality Noted Date [...] Vaccine (#1) 2025 Insurance ([id number]) [place] [phone] ([id number]) Care Teams Buckle Gluer Relationship Specialty Start Date End Date Noé Montaño MD [facility] [address] [place], [place] PCP - General 11/26/20
== END 2025-05-25 10:53 | disposition home or self-care (01) ==
LOC: HO.HKAS 09:59
PROVIDERS: PCP Internal Medicine; Visit Provider Internal Medicine Nephrology
DX: I10 Essential (primary) hypertension (principal)
CPT/HCPCS: 99214

== ENCOUNTER → 2025-05-25 09:58 | Outpatient (BNVA) | payer OTHER, SELFPAY | PROVIDERS: PCP Internal Medicine; Visit Provider Internal Medicine Nephrology | DX: I10 Essential (primary) hypertension (principal) | CPT/HCPCS: 99212 ==

== ENCOUNTER 2025-05-29 15:52 | Outpatient (AMB) | payer OTHER, SELFPAY ==
[2025-05-29 16:01] VITALS: BP 120/82; PULSE 65; O2SAT 98; BMI 27.7
--- NOTE | 2025-05-29 16:01 | A.OFFPC_ITS ---
Vital Signs 05/29/25 16:01 Height 6 ft Weight 204 lb 8 oz BMI 27.7 BP 120/82 Blood Pressure Location Lt brachial Position Sitting Pulse 65 Pulse Source Pulse Oximeter Pulse Oximetry (%) 98 Oxygen Delivery Method Room Air Intake Visit Reasons: IGT, HTN Allergies milk Adverse Reaction (Mild, Verified 05/25/25 10:14) Heartburn, Diarrhea Medication List - Last Reconciled 05/29/25 by Noé Montaño MD acetaminophen 325 mg PO BID PRN bisacodyl (Dulcolax (bisacodyl)) 20 mg (4 x 5 mg) PO ONCE 1 day blood pressure monitor (Blood Pressure Kit) As directed cholecalciferol (vitamin D3) 1,250 mcg PO QWEEK docusate sodium 100 mg PO DAILY fluticasone propionate 50 mcg/actuation 1 spray intranasal DAILY lidocaine 5% 1 patch topical DAILY PRN ostkartfcnrr-mdx-nyra-FA-vit K 45 mg iron- 800 mcg-120 mcg (Bariatric Multivitamins) caps PO omeprazole 20 mg PO DAILY oxycodone-acetaminophen 5-325 mg (Percocet) 1 tab PO .bid PRN 28 days polyethylene glycol 3350 (Miralax) 238 grams PO ONCE tizanidine 4 mg PO DAILY PRN zolpidem 5 mg PO BEDTIME PRN Tobacco use date assessed: 02/08/25 Dental Screening Dental Screen Date: 02/08/25 [facility] Medical History Colon cancer screening Lumbar herniated disc Impaired glucose tolerance Hypercholesterolemia Insomnia GERD (gastroesophageal reflux disease) Obesity (BMI 30-39.9) Surgical History History of laminectomy History of arthroscopy of left knee H/O shoulder surgery Family History Father No problems noted. Mother No problems noted. Maternal Uncle Prostate cancer CAD (coronary artery disease) Family/Other High cholesterol Diabetes Maternal Grandfather Prostate cancer Social History Housing: Apartment Alcohol intake: current Alcohol intake frequency: a few times a month Comment: once q 3 months 1-2 glasses Patient Tobacco Use Status: Former Tobacco user Tobacco use type: Cigarette Years Smoked: stopped 18years old e-Cigarette/Vaping Use: Never Used Second Hand Smoke Exposure: No service: No Current occupational status: unemployed and disabled Cognitive needs: No Hearing needs: No Vision needs: Yes Questionnaire PHQ-9 Over the last 2 weeks, how often have you been bothered by any of the following problems? 1. Little interest or pleasure in doing things: not at all 2. Feeling down, depressed, or hopeless: not at all 3. Trouble falling or staying asleep, or sleeping too much: not at all 4. Feeling tired or having little energy: not at all 5. Poor appetite or overeating: not at all 6. Feeling bad about yourself - or that you are a failure or have let yourself or your family down: not at all 7. Trouble concentrating on things, such as reading the newspaper or watching television: not at all 8. Moving or speaking so slowly that other people could have noticed. Or the opposite - being so fidgety or restless that you have been moving around a lot more than usual: not at all 9. Thoughts that you would be better off or of hurting yourself in some way: not at all Total score: 0 Source: Developed by Drs. Jose Luis Campbell, Kathrin Biggs, Jaylen Ortiz and colleagues, with an educational raymond from [employer]. Thrive Questionnaire Date Thrive assessed: 05/22/25 I am a: Patient What is your living situation today?: I have a steady place to live Within the past 12 months, did the food you bought not last and you didn't have the money to get more?: Never true Within the past 12 months, did you worry whether your food would run out before you got money to buy more?: Never true Do you have trouble paying for medicines?: No Do you have trouble getting transportation to medical appointments?: No Do you have trouble paying your heating and electricity bill?: No Do you have trouble taking care of your child, family member or friend?: No Do you have trouble with day-to-day activities such as bathing, preparing meals, shopping, managing finances, etc.?: No Are you currently unemployed and looking for a job?: No Are you interested in more education?: Yes Please select the resources that you would like help with: Education Currently or been in a relationship where the following occur: No concerns reported THRIVE Score: 0 AUDIT C Alcohol Use Questionnaire (AUDIT-C) 1. How often do you have a drink containing alcohol?: 2-4 times a month Total Score: 2 CAITLIN-7 AMB Questionnaire CAITLIN-7 Date CAITLIN - 7 assessed: 02/08/25 Feeling nervous, anxious, or on edge: 0 = Not at all Not being able to stop or control worryin = Several days Worrying too much about different things: 1 = Several days Trouble relaxin = Several days Being so restless that it is hard to sit still: 0 = Not at all Becoming easily annoyed or irritable: 1 = Several days Feeling afraid as if something awful might happen: 0 = Not at all Total CAITLIN-7 score (0-4 normal; 5-9 mild; 10-14 moderate; 15-21 severe): 4 Source: Developed by Drs. Jose Luis Campbell, Kathrin Biggs, Jaylen Ortiz and colleagues, with an educational raymond from [employer]. Physical exam (Primary Care) Vital Signs: Last Vital Signs Pulse 65 05/29/25 16:01 BP 120/82 05/29/25 16:01 Pulse Ox 98 05/29/25 16:01 Oxygen Delivery Method Room Air 05/29/25 16:01 BMI result Body Mass Index 27.7 Tobacco/Smoking Status: Tobacco use Status Tobacco use date assessed 02/08/25 05/29/25 16:03 Patient Tobacco Use Status Former Tobacco user 05/29/25 16:03 Tobacco use type Cigarette 05/29/25 16:03 e-Cigarette/Vaping Use Never Used 05/29/25 16:03 PHQ-9: PHQ-9 Score PHQ-9: Total score 0 05/29/25 16:32 Thrive Assessment: Date of Thrive Assessment Date Thrive assessed 05/22/25 05/29/25 16:03 Currently or been in a relationship where the following occur: No concerns reported Const General: alert; No acute distress Eyes Conjunctivae: conjunctivae normal Resp Auscultation: clear to auscultation bilaterally Cardio Rate: regular rate Rhythm: regular rhythm GI Inspection: Yes normal to inspection Extrem General: Yes normal to inspection and No edema Results AMB Hemoglobin A1c AMB Hemoglobin A1c 5.3 % Last Edit by FERNANDO Jefferson on 05/29/25 16:14 Results Reviewed Results Reviewed: Laboratory Last Values Hgb A1c (Clinic) 5.3 % (4.0-6.0) 05/29/25 15:59 Coding Level of Care Code Est Pt Level 4 (94033) Complex EM visit Add On G2211 Diagnoses Hypercholesterolemia E78.00 Impaired glucose tolerance R73.02 Obesity (BMI 30-39.9) E66.9 Status post sleeve gastrectomy Z90.3 Gastroesophageal reflux disease without esophagitis K21.9 Esophagitis presence: without esophagitis Renal insufficiency N28.9 Lumbar herniated disc M51.26 Assessment & Plan Assessment & Plan (1) Hypercholesterolemia: Code(s): E78.00 - Pure hypercholesterolemia, unspecified Category: Medical Plan: Avoid fried foods, chicken skin, eggs, butter margarine, pastries and meat. Be it pork or beef they have a lot of cholesterol LDL goal of less than 130 and triglyceride of less than 150 this has normalized (2) Impaired glucose tolerance: Code(s): R73.02 - Impaired glucose tolerance (oral) Category: Medical Plan: Decrease the amount of carbohydrate intake, pasta, bread, rice and potatoes are all sugar and that is aside from all the sweet stuff, remember that fruits are good but they are Sweet also. (3) Obesity (BMI 30-39.9): Code(s): E66.9 - Obesity, unspecified Category: Medical Plan: Diet and exercise (4) Status post sleeve gastrectomy: Comment: 10/2024 Code(s): Z90.3 - Acquired absence of stomach [part of] Category: Surgical Plan: Continue to follow-up with bariatric (5) GERD (gastroesophageal reflux disease): Code(s): K21.9 - Gastro-esophageal reflux disease without esophagitis Category: Medical Qualifiers: Esophagitis presence: without esophagitis Qualified Code(s): K21.9 - Gastro-esophageal reflux disease without esophagitis Plan: Avoid the foods that causes that usually spicy foods, tomato products, juices, coffee, soda and foods that your sensitive to. After eating do not lie down, allow 3-4 hours before in lie down. And keep the head of bed above 30 degrees to avoid the acid from going up. (6) Renal insufficiency: Code(s): N28.9 - Disorder of kidney and ureter, unspecified Category: Medical Plan: Patient has seen Nephrology in the blood work has resolved (7) Lumbar herniated disc: Comment: L5-S1 broad-based herniated disc Dr. Alberts 06/06/2010, work related Code(s): M51.26 - Other intervertebral disc displacement, lumbar region Category: Medical Plan: Narcotic pain meds: Is being prescribed with the understanding that these medications are potentially addictive and should be used only when absolutely necessary and must always be secured. Any remaining pills should be safely disposed off appropriately. Patient is advised that narcotics can impaired judgment and one should not drive or operate heavy machinery while taking these medications. Never share these medications with anybody and do not leave them unattended. They will not be replaced under any circumstances. Plan History of Present Illness The patient is a 50-year-old male presenting for a follow-up visit. The patient has a history of hypercholesterolemia, with a recent LDL level of 118 mg/dL noted in October. He is also diagnosed with peripheral sclerosing, which has been managed with lifestyle modifications and medication as needed. The patient suffers from obstructive sleep apnea but has difficulty tolerating CPAP therapy. He also has a history of hypertension, which was last addressed in a follow-up visit in April or May. Chronic kidney disease is part of the patient's medical history, and he has been under nephrology care. Saharey Maintenance Social History Review of Systems Physical Exam Results - Labs: LDL level of 118 mg/dL in October. - Labs: Blood count and electrolytes within normal limits. Plan The patient's hypercholesterolemia will continue to be managed with a goal of maintaining LDL levels below 130 mg/dL and triglycerides below 150 mg/dL. Lifestyle modifications, including diet and exercise, are recommended to support this goal. For obstructive sleep apnea, the patient is encouraged to explore alternative therapies or adjustments to CPAP to improve tolerance. Hypertension management will continue with regular monitoring and follow-up visits to ensure blood pressure remains controlled. Chronic kidney disease will be monitored with regular nephrology consultations and appropriate lab work to assess renal function. Patient was informed and verbally consented to the use of an ambient scribe for clinic note documentation during this visit. Discussion Notes Patient Instructions Orders: Orders AMB Hemoglobin A1c Today R73.02 - Impaired glucose tolerance (oral) Referrals Cologuard Test Z12.11 - Encounter for screening for malignant neoplasm of colon, Z12.12 - Encounter for screening for malignant neoplasm of rectum Medications: New lidocaine 5% leave on most painful area for up to 12 hrs 1 patch topical DAILY PRN 30 ea 0RF pain, mild B02.9 - Zoster without complications
--- OUTSIDE RECORDS SUMMARY | 2025-05-29 16:53 | XMS_ITS | Data Portability ---
Author Organization [facility] Address [address] [place] [id number] Care Team Providers Care Advanced Developer Name Role Phone HIM CCA OTHER Assessment Encounter Date Assessment Date Assessment LastModified by Organization Details LastModified Time 09/08/2024 09/08/2024 I have reviewed and agree with the assessment and plan as documented by the dolphin researcher. I provided real-time medical direction for this encounter and was immediately available to provide additional phone-based assistance as needed. History as noted in EMR and by dolphin researcher. I would add / emphasize: Patient seen for cough productive of mucus, nasal congestion and sore throat with some thoracic discomfort with persistent coughing. Symptoms have been present since Thursday and have been worsening. No baseline history of lung pathology. AVSS, afebrile and well-appearing saturating well on room air per report. [id number]-bq-[id number] COVID test negative. Doubt ACS or VTE. [...] QL IA, respiratory specimen 2023 024 [facility], [address] [place] [address], [phone] 18:14:55 Referral None recorded. Procedures None recorded. [...] SNOMED-CT Code Diagnosis ICD10 Code Diagnosis Note [id number] López Cortez MD Main - [facility]ED [address] [place] [phone] 09/08/2024 10:54:39 09/08/2024 22:41:25 Cough [id number] R05.9 Health Concerns Section Related Observation LastModified by Organization Detai ls LastModified Time None Recorded Concern Status LastModified by Organization Details LastModified Time None Recorded Advance Directives Directive None Recorded Payers Insurance Date Sequence Insurance Name Policy Number Policy Downs Covered Member ID Downs Member ID Guarantor Name 09/07/2024 1 [facility] - DOS ON OR AFTER 2023 - DUAL ELIGIBLE - ALF OPTIONS AND ONE CARE (MEDICARE REPLACEMENT/ADV ANTAGE - HMO) Anuj Atkins [id number] Anuj Rodriguez Atkins Notes Date Note Type Note Provider Name and Address Organization Details Recorded Time 09/08/2024 text/html HPI: Chronic Pain (shoulders, knees, back), GERD, LEFTY, Insomnia, +smoker ................... ................... ................... ................... ................... ................... ................... ........ CRC Nurse Triage Notes (Neto Mojica): Chief Complaints: URI Comments: Reviewed HPI First Leveler Organization Information for Melania Horn Business Legal Name: [employer]. Address: [address] [place] [address], Administrative Program Specialist: Ney Nava MD CLIA No.: [id number] [employer] POC Test Results from Melania Horn Rapid COVID antigen (10:59:04) COVID: - ................... ................... ................... ................... ................... ................... ................... ........ First Leveler Note From Melania Horn: 49 YOM sitting [...] ........ Disposition: Fulfilled López Cortez MD [address] [facility],[address], [place], [address], CATIE - CARROLL MAHAJAN 09/08/2024 17:43:16
--- OUTSIDE RECORDS SUMMARY | 2025-05-29 16:53 | XMS_ITS | Clinical Summary ---
Author Organization [facility] Address [address] [place] [address] Phone Care Team Providers Care Linux Solaris Administrator Name Role Phone Noé Montaño MD Primary Care Provider [phone] Allergies Active Allergy Reactions Criticality Noted Date [...] PM EDT Office Visit Bariatric Surgery - [address] [place] [address] Mandi Reddy PA Overweight (BMI [...] AM EDT Office Visit Bariatric Surgery - [place] [address] [place] [phone] Mandi Reddy PA [address] [place] [address] Health Maintenance Due Date Last Done Comments [...] LAB CHEMISTRY METHOD 04/17/2025 7:30 PM EDT [facility] TIBC 330 250 - 450 mcg/dL LAB CHEMISTRY METHOD 04/17/2025 7:30 PM EDT [facility] Iron Saturation 24 20 - 50 % LAB CHEMISTRY METHOD 04/17/2025 7:30 PM EDT [facility] Blood Venous blood specimen / Unknown Venipuncture / Unknown 04/17/2025 2:15 PM EDT 04/17/2025 2:15 PM EDT [facility] LAB BLOOD ORDERABLES Final R esult [facility] [address] [place] [address], [place] [phone] * Zinc (04/17/2025 2:15 PM EDT) Zinc 87 60 - 130 ug/dL 04/20/2025 12:27 PM EDT [facility] Comment: Elevated results may be due to sample collected in a non-certified trace element-free tube. This test was developed and the performance characteristics determined by [facility]. It has not been cleared or approved by the FDA. The laboratory is regulated under CLIA as qualified to perform high-complexity testing. This test is used for patient testing purposes. It should not be regarded as investigational or for research. Test performed at [facility], [address], [place] [address] Isa Gary MD, PhD - Applications Support Analyst Blood Venous blood specimen / Unknown Venipuncture / Unknown 04/17/2025 2:15 PM EDT 04/17/2025 2:15 PM EDT [facility] LAB BLOOD ORDERABLES Final R esult Performing Organization Address City/[facility]/ZIP Co de Phone Number [facility] [address] [place], [place] [id number] * (ABNORMAL) Selenium serum (04/17/2025 2:15 PM EDT) Selenium 165(H) 63 - 160 mcg/L 04/21/2025 10:57 PM EDT [facility] Comment: This test was developed and its analytical performance characteristics have been determined by [facility] [place] [place]. It has not been cleared or approved by the U.S. Food and Drug Administration. This assay has been validated pursuant to the CLIA regulations and is used for clinical purposes. Test Performed by [address] [facility], [facility], [address] [place] [address] Yared Longoria M.D., Ph.D., Director of Laboratories , CLIA [id number] Blood Venous blood specimen / Unknown Venipuncture / Unknown 04/17/2025 2:15 PM EDT 04/17/2025 2:15 PM EDT Result [facility] LAB BLOOD ORDERABLES Final R esult Performing Organization Address [facility]/ZIP Co de Phone Number [facility] [address] [place] [address] * Vitamin D 25 hydroxy (04/17/2025 2:15 PM EDT) Vit D, 25-Hydroxy 40.6 30.0 - 80.0 ng/mL LAB CHEMISTRY METHOD 04/17/2025 7:20 PM EDT [facility] Blood Venous blood specimen / Unknown Venipuncture / Unknown 04/17/2025 2:15 PM EDT 04/17/2025 2:15 PM EDT [facility] LAB BLOOD ORDERABLES Final R esult [facility] [address] [place] [address], * Vitamin B1 (04/17/2025 2:15 PM EDT) Vitamin B1 Whole Blood 68 38 - 122 ug/L 04/21/2025 7:55 AM EDT [facility] Comment: This test was developed and the performance characteristics determined by [facility]. It has not been cleared or approved by the FDA. The laboratory is regulated under CLIA as qualified to perform high-complexity testing. This test is used for patient testing purposes. It should not be regarded as investigational or for research. Test performed at [facility], [address] [place] [address] Isa Gary MD, PhD - Applications Support Analyst Blood Venous blood specimen / Unknown Venipuncture / Unknown 04/17/2025 2:15 PM EDT 04/17/2025 2:15 PM EDT [facility] LAB BLOOD ORDERABLES Final R esult [facility] [address] [place] [address] * Vitamin B6 (04/17/2025 2:15 PM EDT) Vitamin B6 (Pyridoxine) Level 44 5 - 50 ug/L 04/21/2025 12:35 PM EDT [facility] Comment: This test was developed and the performance characteristics determined by [facility]. It has not been cleared or approved by the FDA. The laboratory is regulated under CLIA as qualified to perform high-complexity testing. This test is used for patient testing purposes. It should not be regarded as investigational or for research. Test performed at [facility], [address] [facility], [place] [address] Isa Gary MD, PhD - Applications Support Analyst Blood Venous blood specimen / Unknown Venipuncture / Unknown 04/17/2025 2:15 PM EDT 04/17/2025 2:15 PM EDT [facility] LAB BLOOD ORDERABLES Final R esult [facility] [address] [place] [address] * (ABNORMAL) Folate (04/17/2025 2:15 PM EDT) Pathologist [facility] Folate >20.0(H) 2.8 - 17.0 ng/ml LAB CHEMISTRY METHOD 04/17/2025 7:30 PM EDT [facility] Blood Venous blood specimen / Unknown Venipuncture / Unknown 04/17/2025 2:15 PM EDT 04/17/2025 2:15 PM EDT [facility] LAB BLOOD ORDERABLES Final R esult Performing Organization Address [facility]/ZIP Co de Phone Number [facility] [address] [place] [address], [place] [phone] * Vitamin B12 (04/17/2025 2:15 PM EDT) [facility] Vitamin B-12 531 250 - 900 pcg/mL LAB CHEMISTRY METHOD 04/17/2025 7:30 PM EDT [facility] Blood Venous blood specimen / Unknown Venipuncture / Unknown 04/17/2025 2:15 PM EDT 04/17/2025 2:15 PM EDT us [facility]i [facility] LAB BLOOD ORDERABLES Final R esult [facility] [address] [place] [address], [place] [phone] * Comprehensive metabolic panel (04/17/2025 2:15 PM EDT) Sodium 141 133 - 145 mmol/L LAB CHEMISTRY METHOD 04/17/2025 7:30 PM [facility] Potassium 4.5 3.5 - 5.5 mmol/L LAB CHEMISTRY METHOD 04/17/2025 7:30 PM [facility] Chloride 106 96 - 110 mmol/L LAB CHEMISTRY METHOD 04/17/2025 7:30 PM [facility] CO2 28 21 - 32 mmol/L LAB CHEMISTRY METHOD 04/17/2025 7:30 PM [facility] Anion Gap 7 3 - 11 LAB CHEMISTRY METHOD 04/17/2025 7:30 PM [facility] Glucose 94 70 - 100 mg/dL LAB CHEMISTRY METHOD 04/17/2025 7:30 PM [facility] BUN 14 5 - 25 mg/dL LAB CHEMISTRY METHOD 04/17/2025 7:30 PM [facility] Creatinine 1.18 0.70 - 1.30 mg/dL LAB CHEMISTRY METHOD 04/17/2025 7:30 PM [facility] eGFR 76 >=60 mL/min/1. 73m2 LAB CHEMISTRY METHOD 04/17/2025 7:30 PM [facility] Comment:Calculation based on the Chronic Kidney Disease Epidemiology Collaboration (CKD-EPI) equation refit without adjustment for race. BUN/Creatinine Ratio 11.9 LAB CHEMISTRY METHOD 04/17/2025 7:30 PM [facility] Calcium 9.1 8.5 - 10.5 mg/dL LAB CHEMISTRY METHOD 04/17/2025 7:30 PM [facility] AST (SGOT) 18 10 - 42 unit/L LAB CHEMISTRY METHOD 04/17/2025 7:30 PM [facility] ALT (SGPT) 27 10 - 60 unit/L LAB CHEMISTRY METHOD 04/17/2025 7:30 PM [facility] Alkaline Phosphatase 104 42 - 121 unit/L LAB CHEMISTRY METHOD 04/17/2025 7:30 PM EDT [facility] Total Protein 7.0 6.0 - 8.0 g/dL LAB CHEMISTRY METHOD 04/17/2025 7:30 PM EDT [facility] Albumin 3.7 3.2 - 5.0 g/dL LAB CHEMISTRY METHOD 04/17/2025 7:30 PM EDT [facility] Total Bilirubin 0.5 0.0 - 1.4 mg/dL LAB CHEMISTRY METHOD 04/17/2025 7:30 PM EDT [facility] Blood Venous blood specimen / Unknown Venipuncture / Unknown 04/17/2025 2:15 PM EDT 04/17/2025 2:15 PM EDT [facility] LAB BLOOD ORDERABLES Final R esult [facility] [address] [place] [address], * (ABNORMAL) Lipid panel (11/26/2023) LDL/HDL Ratio 5(A) 0 - 4 Triglycerides 292(A) 0 - 150 mg/dL Cholesterol 252(A) 0 - 200 mg/dL HDL 51 >=40 mg/dL LDL Cholesterol 143(A) 0 - 100 mg/dL Blood Venous blood specimen / Unknown Historical Provider LAB BLOOD ORDERABLES Yancy l Result from Last 3 Months or Most Recently Relevant to Health Maintenance Insurance [facility] Member Subscriber Plan / Payer (Ef fective 2020-Present) Name:KEYUR ATKINS Relation to Subscriber:Self Name:Keyur Atkins Payer ID:[id number] Group ID:[id number] Type:Not on file Address: [address] [phone] Advance Directives * Full Code - Default [...] currently active code status orders. Care Teams Linux Solaris Administrator Relationship Specialty Start Date End Date Noé Montaño MD [address] [place] [address] [address] [facility] [place] [address] PCP - General 04/03/23
--- OUTSIDE RECORDS SUMMARY | 2025-05-29 16:53 | XMS_ITS | Patient Health Record ---
Author Organization [facility] Address [address] [place] [address] Care Team Providers Care Survey Supervisor Name Role Phone Noé Montaño MD Primary Care Provider Jose Luis Mcdermott [phone] Allergies Allergen (clinical drug ingredient) Drug/Non Drug [...] Status W/U Status Risk Notes Problem Heartburn (67617417) Heartburn (787.1) Active confirmed Problem GERD (gastroesophag eal reflux disease) (530.81) Active confirmed Plan Of Treatment Future Test Test Name Order Date UPPER GI ENDOSCOPY 02/03/2014 Insurance Providers Payer Name Payer Address Payer Phone Subscriber Number Group Number Insured Name Patient Relationship to Insured Coverage Start Date Coverage End Date [facility] [address] [place] [address] [phone] [id number] KEYUR HOLLAND Self - patient is the insured Medical (General) History Medical History History ICD Code Hypertension-on no meds Denies [place],DM,CVA,Lung disease,renal dise ase GERD Depression--off meds Surgical History Surgery Date(Month/Year) shoulder surgery knee surgery back surgery
--- OUTSIDE RECORDS SUMMARY | 2025-05-29 16:53 | XMS_ITS | Clinical Summary ---
Author Organization [facility] Address [address] [facility] [address] [place] [address] Phone Care Team Providers Care [employer] History Teacher Name Role Phone Noé Montaño MD Primary Care Provider [phone] Allergies Active Allergy Reactions Criticality Noted Date [...] Vaccine (#1) 2025 Insurance ([id number]) [place] [id number] ([id number]) Care Teams Middle School History Teacher Relationship Specialty Start Date End Date Noé Montaño MD [facility] [address] [place], [place] PCP - General 11/26/20
== END 2025-05-29 16:41 | disposition home or self-care (01) ==
LOC: HO.HMCH 15:53
PROVIDERS: PCP Internal Medicine; Visit Provider Internal Medicine
DX: E78.00 Pure hypercholesterolemia, unspecified (principal); R73.02 Impaired glucose tolerance (oral); E66.9 Obesity, unspecified; Z68.27 Body mass index [BMI] 27.0-27.9, adult; Z90.3 Acquired absence of stomach [part of]; K21.9 Gastro-esophageal reflux disease without esophagitis; N28.9 Disorder of kidney and ureter, unspecified; M51.26 Other intervertebral disc displacement, lumbar region

== ENCOUNTER → 2025-05-29 15:52 | Outpatient (BNVA) | payer OTHER, SELFPAY | PROVIDERS: PCP Internal Medicine; Visit Provider Internal Medicine | DX: R73.02 Impaired glucose tolerance (oral) (principal); E78.00 Pure hypercholesterolemia, unspecified; E66.9 Obesity, unspecified; Z68.27 Body mass index [BMI] 27.0-27.9, adult; K21.9 Gastro-esophageal reflux disease without esophagitis; N28.9 Disorder of kidney and ureter, unspecified; M51.26 Other intervertebral disc displacement, lumbar region; Z90.3 Acquired absence of stomach [part of]; Z13.30 Encounter for screening examination for mental health and behavioral disorders, unspecified | CPT/HCPCS: 83036; 96127; 99212 ==

== ENCOUNTER 2025-09-19 09:58 | Outpatient (AMB) | payer OTHER, SELFPAY ==
[2025-09-19 10:01] VITALS: BP 132/84; PULSE 64; TEMP 36.3; O2SAT 95; BMI 27.6
--- NOTE | 2025-09-19 10:01 | MHC.PC.OV ---
Vital Signs 09/19/25 10:01 Height 6 ft Weight 203 lb 4 oz BMI 27.6 BP 132/84 Blood Pressure Location Lt brachial Position Sitting Pulse 64 Pulse Source Pulse Oximeter Temp 97.3 F Temp Source Temporal Artery Scan Pulse Oximetry (%) 95 Oxygen Delivery Method Room Air Intake Visit Reasons: 4 mnth f/u Allergies milk Adverse Reaction (Mild, Verified 09/19/25 10:12) Heartburn, Diarrhea Tobacco use date assessed: 09/19/25 Dental Screening Dental Screen Date: 09/19/25 Did you have a dental visit in the last 12 months?: No Did you have a dental problem in the last 6 months where you did not have access to dental care?: No Was dental information given to patient?: Patient has dentist ON LICENSE OF [facility] Medical History Colon cancer screening Lumbar herniated disc Impaired glucose tolerance Hypercholesterolemia Insomnia GERD (gastroesophageal reflux disease) Obesity (BMI 30-39.9) Surgical History History of laminectomy History of arthroscopy of left knee H/O shoulder surgery Family History Father No problems noted. Mother No problems noted. Maternal Uncle Prostate cancer CAD (coronary artery disease) Family/Other High cholesterol Diabetes Maternal Grandfather Prostate cancer Social History Housing: Apartment Alcohol intake: current Alcohol intake frequency: a few times a month Comment: once q 3 months 1-2 glasses Patient Tobacco Use Status: Former Tobacco user Tobacco use type: Cigarette Years Smoked: stopped 18years old e-Cigarette/Vaping Use: Never Used Second Hand Smoke Exposure: No service: No Current occupational status: unemployed and disabled Cognitive needs: No Hearing needs: No Vision needs: Yes Questionnaire PHQ-9 Over the last 2 weeks, how often have you been bothered by any of the following problems? 1. Little interest or pleasure in doing things: not at all 2. Feeling down, depressed, or hopeless: not at all 3. Trouble falling or staying asleep, or sleeping too much: not at all 4. Feeling tired or having little energy: not at all 5. Poor appetite or overeating: not at all 6. Feeling bad about yourself - or that you are a failure or have let yourself or your family down: not at all 7. Trouble concentrating on things, such as reading the newspaper or watching television: not at all 8. Moving or speaking so slowly that other people could have noticed. Or the opposite - being so fidgety or restless that you have been moving around a lot more than usual: not at all 9. Thoughts that you would be better off or of hurting yourself in some way: not at all Total score: 0 Source: Developed by Drs. Jose Luis Campbell, Kathrin Biggs, Jaylen Ortiz and colleagues, with an educational raymond from [employer]. Thrive Questionnaire Date Thrive assessed: 05/22/25 I am a: Patient What is your living situation today?: I have a steady place to live Within the past 12 months, did the food you bought not last and you didn't have the money to get more?: Never true Within the past 12 months, did you worry whether your food would run out before you got money to buy more?: Never true Do you have trouble paying for medicines?: No Do you have trouble getting transportation to medical appointments?: No Do you have trouble paying your heating and electricity bill?: No Do you have trouble taking care of your child, family member or friend?: No Do you have trouble with day-to-day activities such as bathing, preparing meals, shopping, managing finances, etc.?: No Are you currently unemployed and looking for a job?: No Are you interested in more education?: Yes Please select the resources that you would like help with: Education Currently or been in a relationship where the following occur: No concerns reported THRIVE Score: 0 AUDIT C Alcohol Use Questionnaire (AUDIT-C) 1. How often do you have a drink containing alcohol?: 2-4 times a month 2. How many drinks containing alcohol do you have on a typical day when you are drinking?: 1 or 2 3. How often do you have six or more drinks on one occasion?: Never Total Score: 2 CAITLIN-7 AMB Questionnaire CAITLIN-7 Date CAITLIN - 7 assessed: 02/08/25 Feeling nervous, anxious, or on edge: 0 = Not at all Not being able to stop or control worryin = Several days Worrying too much about different things: 1 = Several days Trouble relaxin = Several days Being so restless that it is hard to sit still: 0 = Not at all Becoming easily annoyed or irritable: 1 = Several days Feeling afraid as if something awful might happen: 0 = Not at all Total CAITLIN-7 score (0-4 normal; 5-9 mild; 10-14 moderate; 15-21 severe): 4 Source: Developed by Drs. Jose Luis Campbell, Kathrin Biggs, Jaylen Ortiz and colleagues, with an educational raymond from [employer]. Physical exam (Primary Care) Vital Signs: Last Vital Signs Temp 97.3 F 09/19/25 10:01 Pulse 64 09/19/25 10:01 BP 132/84 09/19/25 10:01 Pulse Ox 95 09/19/25 10:01 Oxygen Delivery Method Room Air 09/19/25 10:01 BMI result Body Mass Index 27.6 Tobacco/Smoking Status: Tobacco use Status Tobacco use date assessed 09/19/25 09/19/25 10:02 Patient Tobacco Use Status Former Tobacco user 09/19/25 10:02 Tobacco use type Cigarette 09/19/25 10:02 e-Cigarette/Vaping Use Never Used 09/19/25 10:02 PHQ-9: PHQ-9 Score PHQ-9: Total score 0 09/19/25 10:28 Thrive Assessment: Date of Thrive Assessment Date Thrive assessed 05/22/25 09/19/25 10:02 Currently or been in a relationship where the following occur: No concerns reported Const General: alert; No acute distress Eyes Conjunctivae: conjunctivae normal Resp Auscultation: clear to auscultation bilaterally Cardio Rate: regular rate Rhythm: regular rhythm GI Inspection: Yes normal to inspection Extrem General: Yes normal to inspection and No edema Coding Level of Care Code Est Pt Level 4 (32788) Complex EM visit Add On G2211 Diagnoses Impaired glucose tolerance R73.02 Status post sleeve gastrectomy Z90.3 Hypercholesterolemia E78.00 Gastroesophageal reflux disease without esophagitis K21.9 Esophagitis presence: without esophagitis Lumbar herniated disc M51.26 Assessment & Plan Assessment & Plan (1) Impaired glucose tolerance: Code(s): R73.02 - Impaired glucose tolerance (oral) Category: Medical Plan: Decrease the amount of carbohydrate intake, pasta, bread, rice and potatoes are all sugar and that is aside from all the sweet stuff, remember that fruits are good but they are Sweet also. (2) Status post sleeve gastrectomy: Comment: 10/2024 Code(s): Z90.3 - Acquired absence of stomach [part of] Category: Surgical Plan: Continue to follow-up with bariatric (3) Hypercholesterolemia: Code(s): E78.00 - Pure hypercholesterolemia, unspecified Category: Medical Plan: Avoid fried foods, chicken skin, eggs, butter margarine, pastries and meat. Be it pork or beef they have a lot of cholesterol (4) GERD (gastroesophageal reflux disease): Code(s): K21.9 - Gastro-esophageal reflux disease without esophagitis Category: Medical Qualifiers: Esophagitis presence: without esophagitis Qualified Code(s): K21.9 - Gastro-esophageal reflux disease without esophagitis Plan: Avoid the foods that causes that usually spicy foods, tomato products, juices, coffee, soda and foods that your sensitive to. After eating do not lie down, allow 3-4 hours before in lie down. And keep the head of bed above 30 degrees to avoid the acid from going up. (5) Lumbar herniated disc: Comment: L5-S1 broad-based herniated disc Dr. Alberts 06/06/2010, work related Code(s): M51.26 - Other intervertebral disc displacement, lumbar region Category: Medical Plan: Narcotic pain meds: Is being prescribed with the understanding that these medications are potentially addictive and should be used only when absolutely necessary and must always be secured. Any remaining pills should be safely disposed off appropriately. Patient is advised that narcotics can impaired judgment and one should not drive or operate heavy machinery while taking these medications. Never share these medications with anybody and do not leave them unattended. They will not be replaced under any circumstances. Plan History of Present Illness The patient is a 50-year-old overweight male presenting for a follow-up visit for his chronic conditions. His medical history is significant for hypercholesterolemia, GERD, impaired glucose tolerance, hypertension, chronic kidney disease, obstructive sleep apnea for which he cannot tolerate CPAP, and a lumbar herniated disc requiring narcotic pain medication. He is status post sleeve gastrectomy in October 2024. The patient recently underwent an ultrasound of the abdomen at [facility] for right inguinal pain that occurred with certain exercises, such as those involving the shoulder or when getting out of bed. The imaging showed a 1 cm hypoechoic nodule in the right inguinal region, likely a normal-sized lymph node, and ruled out a hernia. He also reports experiencing some right testicular discomfort, but denies swelling, redness, or penile discharge. His current medications include omeprazole, zolpidem, narcotic pain medication, and muscle relaxants. He has been taking more pain medication recently due to performing work in his house, which has led to constipation. Recent blood work from May 22, 2025 showed a normal blood count, electrolytes, and renal function, with a hemoglobin A1c of 5.3%. His last cholesterol check in October 2024 showed an LDL of 118. His Cologuard testing is up to date. Health Maintenance - Colon cancer screening: Cologuard testing is up to date. - Vaccinations: Patient declined the flu shot. - Lab Monitoring: A1c was 5.3% in May 2025. - Lipid monitoring: Last LDL was 118 in October 2024. - Future labs to include a fasting lipid panel and prostate-specific antigen (PSA) test are planned in 2-3 months. Social History - Exercise: Patient stopped exercising recently due to right inguinal pain. - Functional Status: Currently doing work in the house, which has exacerbated his pain. Review of Systems - Gastrointestinal: Reports mild constipation. - Genitourinary: Reports right testicular pain/discomfort. Denies testicular swelling, redness, or penile discharge. - Musculoskeletal: Reports right inguinal pain, particularly with certain exercises. Denies feeling a lump in the groin. Physical Exam Results - Abdominal/Inguinal Ultrasound: A recent study at [facility] showed a small, 1 cm hypoechoic nodule in the right inguinal region, likely representing a normal-sized lymph node. - No hernia was identified on the ultrasound. - Laboratory Studies (May 22, 2025): Results showed a normal blood count, electrolytes, and renal function. - Hemoglobin A1c (May 2025): 5.3%. - LDL Cholesterol (October 2024): 118. Plan Patient was informed and verbally consented to the use of an ambient scribe for clinic note documentation during this visit. 1. Right Inguinal And Testicular Pain The patient was reassured that the recent ultrasound ruled out a hernia and the 1 cm right inguinal nodule is likely a normal lymph node. The inguinal pain is likely musculoskeletal, from a pulled muscle during exercise. Advised to continue exercising but to be mindful of positioning. If testicular pain persists, an ultrasound of the testicle will be ordered to assess for conditions like epididymitis. 2. Hypercholesterolemia The patient's LDL cholesterol was 118 in October 2024. A fasting blood work panel, including lipids and a PSA, will be ordered for the patient to complete in 2 to 3 months. 3. Chronic Kidney Disease The patient is followed by a child care specialist for this condition. Labs from May 2025 showed normal kidney function. Will continue to follow up with nephrology. 4. Gastroesophageal Reflux Disease Patient will continue his current omeprazole regimen. 5. History Of Sleeve Gastrectomy The patient will continue to follow up with bariatrics. Discussion Notes I reviewed the patient's recent inguinal ultrasound, which was negative for a hernia but did show a small, 1 cm hypoechoic nodule likely representing a normal-sized lymph node. I explained that the inguinal pain is most likely a muscle pull from exercise and reassured him that the finding is not concerning. We discussed that if the testicular pain persists, a testicular ultrasound would be the next step. I noted his recent labs from May were stable, and his cholesterol numbers are improving with weight loss. I informed him that new fasting blood work, including a lipid panel and PSA, is not needed immediately but can be done in two to three months, and I have placed the order for this. I also advised him to remain cautious due to the continued presence of COVID. Patient Instructions - Your recent ultrasound of the groin area did not show a hernia, which is good news. - The pain you've been feeling is likely a pulled muscle from exercise; try adjusting your positioning, but you do not need to stop exercising. - If the pain in your testicle continues, please let us know so we can arrange an ultrasound for that area. - Continue taking your omeprazole for stomach acid. - I have put in an order for your next blood tests, which should be done fasting. You can get these done in about 2-3 months. - Continue to follow up with your bariatric and kidney doctors as planned. - To help with constipation from your pain medicine, continue to drink plenty of water. Orders: Orders Comprehensive Met. Panel 1 Month E78.00 - Pure hypercholesterolemia, unspecified Thyroid Stimulating Hormone 1 Month E78.00 - Pure hypercholesterolemia, unspecified Vitamin B12 and Folate 1 Month E78.00 - Pure hypercholesterolemia, unspecified Prostate Specific Antigen Scr 1 Month E78.00 - Pure hypercholesterolemia, unspecified UA CC w/rflx Micro + Cult 1 Month E78.00 - Pure hypercholesterolemia, unspecified, R30.0 - Dysuria Complete Blood Count Auto Diff 1 Month E78.00 - Pure hypercholesterolemia, unspecified Free T4 (Free Thyroxine) 1 Month E78.00 - Pure hypercholesterolemia, unspecified Lipid Panel 1 Month E78.00 - Pure hypercholesterolemia, unspecified Hemoglobin A1c 1 Month E78.00 - Pure hypercholesterolemia, unspecified Medications: Refilled oxycodone-acetaminophen 5-325 mg (Percocet) 1 tab PO .bid PRN 56 tabs 0RF pain 28 days M51.26 - Other intervertebral disc displacement, lumbar region zolpidem 5 mg PO BEDTIME PRN 30 tabs 0RF insomnia G47.00 - Insomnia, unspecified
--- OUTSIDE RECORDS SUMMARY | 2025-09-19 11:28 | XMS_ITS | Clinical Summary ---
Author Organization [facility] Address [address] [facility] [address] [place] [address] Phone Care Team Providers Care Neck Band Setter Name Role Phone Noé Montaño MD Primary Care Provider [phone] Allergies Active Allergy Reactions Criticality Noted Date [...] Vaccine (#1) 2025 Insurance ([id number]) [place] [id number] ([id number]) Care Teams Neck Band Setter Relationship Specialty Start Date End Date Noé Montaño MD [facility] [address] [place], [place] PCP - General 11/26/20
--- OUTSIDE RECORDS SUMMARY | 2025-09-19 11:28 | XMS_ITS | Patient Health Record ---
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 Name Role Phone Noé Montaño MD Primary Care Provider Jose Luis Mcdermott [phone] Allergies Allergen (clinical drug ingredient) Drug/Non Drug [...] Status W/U Status Risk Notes Problem Heartburn (60803859) Heartburn (787.1) Active confirmed Problem Gastroesophageal reflux disease (431220196) GERD (gastroesopha geal reflux disease) (530.81) Active confirmed Plan Of Treatment Future Test Test Name Order Date UPPER GI ENDOSCOPY 02/03/2014 Insurance Providers Payer Name Payer Address Payer Phone Subscriber Number Group Number Insured Name Patient Relationship to Insured Coverage Start Date Coverage End Date [facility] [employer] [address] [place] [phone] [id number] KEYUR HOLLAND Self - patient is the insured Medical (General) History Medical History History ICD Code Hypertension-on no meds Denies [place],DM,CVA,Lung disease,renal dise ase GERD Depression--off meds Surgical History Surgery Date(Month/Year) shoulder surgery knee surgery back surgery
--- OUTSIDE RECORDS SUMMARY | 2025-09-19 11:28 | XMS_ITS | Clinical Summary ---
Author Organization [facility] Address [address] [place] [address] Phone Care Team Providers Care Events Intern Name Role Phone Noé Montaño MD Primary Care Provider [phone] Allergies Active Allergy Reactions Criticality Noted Date [...] MOUTH ONE TIME PER WEEK 8 capsule 08/28/20 25 Active cholecalciferol (VITAMIN D-3) 1,250 mcg (50,000 unit) capsule TAKE 1 CAPSULE BY MOUTH ONE TIME PER WEEK 8 capsule 06/29/20 25 025 Discontinued Active Problems Problem Noted Date Diagnosed Date Bariatric surgery status 08/22/2025 Overweight (BMI 25.0-29.9) 01/30/2025 Resolved Problems Problem Noted Date Diagnosed Date Resolved Date Class 1 obesity with body ma ss index (BMI) of 31.0 to 31.9 in adult 09/28/2024 08/22/2025 Class 1 obesity due to exces s calories with serious comorbidity and body mass index (BMI) of 33.0 to 33.9 in adult 09/09/2024 08/22/2025 Encounters Date Type Department Care Team Description 08/25/2025 7:59 AM EDT - 08/25/2025 11:59 PM EDT Hospital Encounter [facility] Ultrasound [address] [place] [address] Overweight (BMI 25.0-29.9); Groin pain, right Discharge Disposition: Home or Self Care 08/22/2025 9:15 AM EDT Office Visit Bariatric Surgery - [place] [address] [facility] [address] [place] [address] Mandi Reddy PA Overweight (BMI 25.0-29.9) (Primary Dx); Bariatric surgery status; Groin pain, right from Last 3 Months Surgical History Surgery Date Site/Laterality Comments SHOULDER ARTHROSCOPY W/ SUBA CROMIAL DECOMPRESSION AND DISTAL CLAVICLE EXCISION Bilateral LUMBAR DISC SURGERY DECOMPRESSION KNEE ARTHROSCOPY PT UNSURE Medical History Medical History Date Comments Hypertension Sleep apnea GERD (gastroesophageal reflux disease) Chronic kidney disease Chronic pain disorder Thoracic spinal cord injury ([facility] V24, [facility] V28) Lumbar herniated disc 2 DISCS Joint pain Achilles rupture B Acute pain in joint LUMBAR AND B SHOULDERS Class 1 obesity with body ma ss index (BMI) of 31.0 to 31.9 in adult 09/28/2024 Social History Tobacco Use Types Packs/Day Years Used Date Smoking Tobacco: Former Cigarettes Q uit: 1993 Passive Smoke Exposure: Never Smokeless Tobacco: Never Tobacco Cessation:Counseling Given: Not Answered Alcohol Use Standard Drinks/Week Comments Not Asked 0 (1 standard drink = 0.6 oz pur e alcohol) RARELY Interpersonal Safety Answer Date Record ed Physical Abuse Unrecognized value 09/28/2024 Verbal Abuse Unrecognized value 09/28/2024 Sex and Gender Information Value Date Recorded Sex Assigned at Male 09/21/2024 9:08 AM EST Legal Sex Male 8:57 PM EST Gender Identity Male 09/21/2024 9:08 AM EST Sexual Orientation Straight 09/21/2024 9: 08 AM EST Obstetrics History Last Filed Vital Signs Vital Sign Reading Time Taken Comments Blood Pressure 120/83 08/22/2025 9:15 AM EDT Pulse 65 08/22/2025 9:15 AM EDT Temperature 36.8 C (98.2 F) 04/17/2025 2:02 PM EDT Respiratory Rate 17 09/30/2024 3:07 AM EST Oxygen Saturation 94% 09/30/2024 7:49 AM EST Inhaled Oxygen Concentration - - Weight 92.3 kg (203 lb 6.4 oz) 08/22/2025 9:15 A M EDT Height 182.9 cm (6') 08/22/2025 9:15 AM EDT Body Mass Index 27.59 08/22/2025 9:15 AM EDT Plan of Treatment Upcoming Encounters Date Type Department Care Team (Late st Contact Info) Description 01/16/2026 9:00 AM EST Office Visit Bariatric Surgery - [address] [place] [id number] Mandi Reddy PA [address] [place] [phone] Health Maintenance Due Date Last Done Comments Colorectal Cancer Screening: Colonoscopy 1977 Hepatitis B Vaccines (1 of 3 - 19+ 3-dose series) 01/24/1996 HIV Screening 12/11/2023 Hepatitis C Screening 12/11/2023 Medicare Annual Wellness Visit 12/11/2023 Social Influencers of Health Screening 12/11/2023 Depression Screening 11/16/2024 COVID-19 Vaccine ( season) 2025 09/27/2022, 12/13/2021, 04/03/2021, Additional history exists Influenza Vaccine (#1) 2025 09/14/2015 DTaP,Tdap,and Td Vaccines (2 - Td or Tdap) 12/06/2025 12/06/2015 Hypertension/CHF/CAD Annual BMP Blood Test 04/17/2026 04/17/2025, 09/30/2024, 09/29/2024, Additional history exists Cholesterol Screening (Lipid Panel) 11/26/2028 11/26/2023 RSV Immunization Adult Patients (1 - 1-dose 75+ series) 01/24/2052 HIB Vaccines Aged Out No longer eligi [...] Procedure Name Priority Date/Time Associated Diagnosis Comments US ABDOMEN LIMITED Routine 08/25/2025 9: 20 AM EDT Overweight (BMI 25.0-29.9) Groin pain, right COMPREHENSIVE METABOLIC PANEL Routine 04/17/2025 2:15 PM EDT Overweight (BMI 25.0-29.9) Bariatric surgery status LIPID PANEL Routine 11/26/2023 from Last 3 Months or Most Recently Relevant to Health Maintenance Results * US Abdomen Limited (08/25/2025 9:20 AM EDT) Anatomical Region Laterality Modality Body Ultrasound 08/28/2025 4:59 PM EDT Impressions 08/28/2025 5:00 PM EDT Small hypoechoic nodule in the right inguinal region, likely a (normal size) lymph node. No hernia. -------- FINAL REPORT -------- Dictated By: Serge Acuna Dictated Date: 08/28/2025 16:59 ET Assigned Physician: Serge Acuna Reviewed and Electronically Signed By: Serge Acuna Signed Date: 08/28/2025 17:00 ET Workstation ID: [id number] Transcribed By: Self Edit Transcribed Date: 08/28/2025 16:59 ET Narrative 08/28/2025 5:00 PM EDT PROCEDURE: Focus soft tissue ultrasound. HISTORY: r/o RIGHT inguinal hernia. COMPARISON: None. TECHNIQUE: Grayscale and color Doppler ultrasound of an area of reported palpable concern. FINDINGS: Focused ultrasound performed in the right inguinal region. There is an 11 x 5 x 7 mm hypoechoic nodule which is likely a lymph node. No focal fluid collection. No hernia. Procedure Note Serge Acuna MD - 08/28/2025 PROCEDURE: Focus soft tissue ultrasound. HISTORY: r/o RIGHT inguinal hernia. COMPARISON: None. TECHNIQUE: Grayscale and color Doppler ultrasound of an area of reportedpalpable concern. FINDINGS: Focused ultrasound performed in the right inguinal region. There is an 11 x 5 x 7 mm hypoechoic nodule which is likely a lymph node.No focal fluid collection. No hernia. IMPRESSION: Small hypoechoic nodule in the right inguinal region, likely a (normalsize) lymph node. No hernia. -------- FINAL REPORT -------- Dictated By: Serge Acuna Dictated Date: 08/28/2025 16:59 ET Assigned Physician: Serge Acuna Reviewed and Electronically Signed By: Serge Acuna Signed Date: 08/28/2025 17:00 ET Workstation ID: [id number] Transcribed By: Self Edit Transcribed Date: 08/28/2025 16:59 ET us Mandi SANTO IMG US PROCEDURES Final Resu lt * Comprehensive metabolic panel (04/17/2025 2:15 PM EDT) Sodium 141 133 - 145 mmol/L LAB CHEMISTRY METHOD 04/17/2025 7:30 PM [facility] Potassium 4.5 3.5 - 5.5 mmol/L LAB CHEMISTRY METHOD 04/17/2025 7:30 PM [facility] Chloride 106 96 - 110 mmol/L LAB CHEMISTRY METHOD 04/17/2025 7:30 PM [facility] CO2 28 21 - 32 mmol/L LAB CHEMISTRY METHOD 04/17/2025 7:30 PM [facility] Anion Gap 7 3 - 11 LAB CHEMISTRY METHOD 04/17/2025 7:30 PM [facility] Glucose 94 70 - 100 mg/dL LAB CHEMISTRY METHOD 04/17/2025 7:30 PM [facility] BUN 14 5 - 25 mg/dL LAB CHEMISTRY METHOD 04/17/2025 7:30 PM [facility] Creatinine 1.18 0.70 - 1.30 mg/dL LAB CHEMISTRY METHOD 04/17/2025 7:30 PM [facility] eGFR 76 >=60 mL/min/1. 73m2 LAB CHEMISTRY METHOD 04/17/2025 7:30 PM [facility] Comment:Calculation based on the Chronic Kidney Disease Epidemiology Collaboration (CKD-EPI) equation refit without adjustment for race. BUN/Creatinine Ratio 11.9 LAB CHEMISTRY METHOD 04/17/2025 7:30 PM [facility] Calcium 9.1 8.5 - 10.5 mg/dL LAB CHEMISTRY METHOD 04/17/2025 7:30 PM [facility] AST (SGOT) 18 10 - 42 unit/L LAB CHEMISTRY METHOD 04/17/2025 7:30 PM [facility] ALT (SGPT) 27 10 - 60 unit/L LAB CHEMISTRY METHOD 04/17/2025 7:30 PM [facility] Alkaline Phosphatase 104 42 - 121 unit/L LAB CHEMISTRY METHOD 04/17/2025 7:30 PM EDT [facility] Total Protein 7.0 6.0 - 8.0 g/dL LAB CHEMISTRY METHOD 04/17/2025 7:30 PM EDT [facility] Albumin 3.7 3.2 - 5.0 g/dL LAB CHEMISTRY METHOD 04/17/2025 7:30 PM EDT [facility] Total Bilirubin 0.5 0.0 - 1.4 mg/dL LAB CHEMISTRY METHOD 04/17/2025 7:30 PM EDT [facility] Blood Venous blood specimen / Unknown Venipuncture / Unknown 04/17/2025 2:15 PM EDT 04/17/2025 2:15 PM EDT Mandi SANTO LAB BLOOD ORDERABLES Final R esult [facility] [address] [place] [address], * (ABNORMAL) Lipid panel (11/26/2023) LDL/HDL Ratio 5(A) 0 - 4 Triglycerides 292(A) 0 - 150 mg/dL Cholesterol 252(A) 0 - 200 mg/dL HDL 51 >=40 mg/dL LDL Cholesterol 143(A) 0 - 100 mg/dL Blood Venous blood specimen / Unknown Historical Provider LAB BLOOD ORDERABLES Yancy l Result from Last 3 Months or Most Recently Relevant to Health Maintenance Insurance [facility] Member Subscriber Plan / Payer (Ef fective 2020-Present) Name:ANUJ ATKINS Relation to Subscriber:Self Name:Anuj Atkins Payer ID:[id number] Group ID:[id number] Type:Not on file Address: [address] [place] [phone] Advance Directives * Full Code - Default [...] currently active code status orders. Care Teams Events Intern Relationship Specialty Start Date End Date Noé Montaño MD [address] [place] [address] [address] [facility] [place] [address] PCP - General 04/03/23
--- OUTSIDE RECORDS SUMMARY | 2025-09-19 11:28 | XMS_ITS | Data Portability ---
Author Organization [facility] Address [address] [place] [phone] Care Team Providers Care Parts Technician Name Role Phone HIM CCA OTHER Assessment Encounter Date Assessment Date Assessment LastModified by Organization Details LastModified Time 09/08/2024 09/08/2024 I have reviewed and agree with the assessment and plan as documented by the signal tower director. I provided real-time medical direction for this encounter and was immediately available to provide additional phone-based assistance as needed. History as noted in EMR and by signal tower director. I would add / emphasize: Patient seen for cough productive of mucus, nasal congestion and sore throat with some thoracic discomfort with persistent coughing. Symptoms have been present since Thursday and have been worsening. No baseline history of lung pathology. AVSS, afebrile and well-appearing saturating well on room air per report. [id number] COVID test negative. Doubt ACS or VTE. [...] respiratory specimen 2023 024 [facility], [address] [place] [address], [phone] 18:14:55 Referral None recorded. Procedures None recorded. [...] Diagnosis SNOMED-CT Code Diagnosis ICD10 Code Diagnosis IMO Codes Diagnosis Note [id number] López Cortez MD Main - [facility] [address] [place] [phone] 09/08/2024 10:54:39 09/08/2024 22:41:25 Cough 86291386 R05.9 Health Concerns Section Related Observation LastModified by Organization Detai ls LastModified Time None Recorded Concern Status LastModified by Organization Details LastModified Time None Recorded Advance Directives Directive None Recorded Payers Insurance Date Sequence Insurance Name Policy Number Policy Downs Covered Member ID Downs Member ID Guarantor Name 08/18/2025 1 [facility] - DOS ON OR AFTER 2023 - DUAL ELIGIBLE - SENIOR LIVING OPTIONS AND ONE CARE (MEDICARE REPLACEMENT/ADV ANTAGE - HMO) Anuj Atkins [id number] Anuj Atkins Notes Date Note Type Note Provider Name and Address Organization Details Recorded Time 09/08/2024 text/html HPI: Chronic Pain (shoulders, knees, back), GERD, LEFTY, Insomnia, +smoker ................... ................... ................... ................... ................... ................... ................... ........ 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 ................... ................... ................... ................... ................... ................... ........ Diesel Instructor Note From [facility]: 49 YOM sitting [...] Rapid Covid antigen test performed revealed negative D r. notified. Patient is advice to try drinking hot tea with honey, and continue taking his cough syrup tussin as per doctors recommendations. Patient is left under the care of his . SC8 clear without any incidents. ................... ................... ................... ................... ................... ................... ................... ........ Disposition: Fulfilled López Cortez MD [address] [facility],[address], [place], [address], CATIE - Plynked CARROLL 09/08/2024 17:43:16
== END 2025-09-19 10:41 | disposition home or self-care (01) ==
LOC: HO.HMCH 09:58
PROVIDERS: PCP Internal Medicine; Visit Provider Internal Medicine
DX: R73.02 Impaired glucose tolerance (oral) (principal); Z90.3 Acquired absence of stomach [part of]; E78.00 Pure hypercholesterolemia, unspecified; K21.9 Gastro-esophageal reflux disease without esophagitis; M51.26 Other intervertebral disc displacement, lumbar region

== ENCOUNTER → 2025-09-19 09:58 | Outpatient (BNVA) | payer OTHER, SELFPAY | PROVIDERS: PCP Internal Medicine; Visit Provider Internal Medicine | DX: K21.9 Gastro-esophageal reflux disease without esophagitis (principal); R73.02 Impaired glucose tolerance (oral); E78.00 Pure hypercholesterolemia, unspecified; M51.26 Other intervertebral disc displacement, lumbar region; N50.811 Right testicular pain; R10.31 Right lower quadrant pain; N18.9 Chronic kidney disease, unspecified; Z90.3 Acquired absence of stomach [part of] | CPT/HCPCS: 96127; 99212 ==

== ENCOUNTER 2025-10-27 08:05 | Outpatient (REF) | payer OTHER, SELFPAY ==
[2025-10-27 08:17] LABS: MANUAL DIFF FLAG NO
[2025-10-27 08:51] LABS: Appearance Urine Clear; Glucose Urine UA Negative (Negative); PH 6.5 (5.0-9.0); Specific Gravity - Urine 1.020 (1.005-1.025)
[2025-10-27 08:59] LABS: Hematocrit 46.9 % (42.0-52.0); Hemoglobin 15.9 g/dl (14.0-18.0); Imm Gran Abs Auto 0.02 X10*3/uL (0.00-0.03); Imm Gran Pct Auto 0.2 % (0.0-0.4); Lymphocytes Absolute Auto 2.2 X10*3/uL (1.2-4.9); Mean Corpuscular HGB Conc 33.9 g/dl (31.0-36.0); Mean Corpuscular Hemoglobin 29.0 pg (27.0-33.0); Mean Corpuscular Volume 85.6 fL (80.0-98.0); NRBC Abs Auto 0.000 X10*3/uL (0.0-0.012); NRBC Pct Auto 0.0 /100WBC (0.0-0.2); Platelet Count 175 X10*3/uL (160-400); Red Blood Count 5.48 X10*6/uL (4.60-5.80); White Blood Count 8.7 X10*3/uL (4.8-10.8)
[2025-10-27 09:56] LABS: Alanine Aminotransferase 29 U/L (0-40); Albumin Level 4.4 g/dL (3.5-5.0); Alkaline Phosphatase 83 U/L (39-117); Anion Gap 10 (12-20); Aspartate Amino Transferase 30 U/L (5-37); Blood Urea Nitrogen 17 mg/dL (9-16); Calcium 9.3 mg/dL (8.4-10.2); Carbon Dioxide 30 mmol/L (22-29); Chloride 104 mmol/L (96-108); Cholesterol 186 mg/dL (<200); Estimated Glomerular Filt Rate > 60; Free T4 (Free Thyroxine) 1.13 ng/dL (0.71-1.85); HDL Cholesterol 67 mg/dL (>40); Potassium 4.3 mmol/L (3.3-5.1); Sodium 140 mmol/L (135-145); Thyroid Stimulating Hormone 0.54 uIU/mL (0.32-4.0); Total Protein 7.1 g/dL (6.5-8.0); Triglycerides 104 mg/dL (<150)
[2025-10-27 10:04] LABS: Folate 12.7 ng/mL (> or = 4.0); Vitamin B12 581 pg/mL (200-900)
== END 2025-10-27 08:06 | disposition home or self-care (01) ==
LOC: HO.LAB 08:05
PROVIDERS: PCP Internal Medicine; Visit Provider Internal Medicine
DX: R30.0 Dysuria (principal); E78.00 Pure hypercholesterolemia, unspecified; Z12.5 Encounter for screening for malignant neoplasm of prostate; Z13.1 Encounter for screening for diabetes mellitus
CPT/HCPCS: 36415; 80053; 80061; 81003; 82607; 82746; 83036; 84153; 84439; 84443; 85025

== ENCOUNTER 2025-11-14 09:50 | Outpatient (AMB) | payer OTHER, SELFPAY ==
[2025-11-14 10:18] VITALS: BP 124/76; PULSE 72; O2SAT 98; BMI 27.5
--- NOTE | 2025-11-14 10:18 | MHC.PC.OV ---
Vital Signs 11/14/25 10:18 Height 6 ft Weight 203 lb BMI 27.5 BP 124/76 Blood Pressure Location Lt brachial Position Sitting Pulse 72 Pulse Source Pulse Oximeter Pulse Oximetry (%) 98 Oxygen Delivery Method Room Air Intake Visit Reasons: Annual Exam Allergies milk Adverse Reaction (Mild, Verified 11/14/25 10:19) Heartburn, Diarrhea Medication List - Last Reconciled 11/14/25 by Noé Montaño MD acetaminophen 325 mg PO BID PRN bisacodyl (Dulcolax (bisacodyl)) 20 mg (4 x 5 mg) PO ONCE 1 day blood pressure monitor (Blood Pressure Kit) As directed cholecalciferol (vitamin D3) 1,250 mcg PO QWEEK docusate sodium 100 mg PO DAILY fluticasone propionate 50 mcg/actuation 1 spray intranasal DAILY lidocaine 5% 1 patch topical DAILY PRN tyeljlcwkrfc-vqp-sbao-FA-vit K 45 mg iron- 800 mcg-120 mcg (Bariatric Multivitamins) caps PO omeprazole 20 mg PO DAILY oxycodone-acetaminophen 5-325 mg (Percocet) 1 tab PO .bid PRN 28 days polyethylene glycol 3350 (Miralax) 238 grams PO ONCE tizanidine 4 mg PO DAILY PRN zolpidem 5 mg PO BEDTIME PRN Tobacco use date assessed: 09/19/25 Dental Screening Dental Screen Date: 09/19/25 HPI HPI Comments History of Present Illness Details History of Present Illness The patient is a 50 year old male who presents for a physical exam. His past medical history includes GERD, hypercholesterolemia, impaired glucose tolerance, insomnia, obstructive sleep apnea, hypertension, and kidney disease. He has a history of a lumbar radicular disc, for which he uses narcotic pain medication as needed. His surgical history is significant for a sleeve gastrectomy in October 2024. His current medications include vitamin D, multivitamins from his bariatric team, a nasal spray, tizanidine, and Zolpidem for sleep. He also has docusate for as-needed use and requires a refill for his lidocaine patches. Family history is notable for heart problems in an uncle, as well as prostate cancer in his grandfather and an uncle. As part of health maintenance, he completed a Cologuard test in June 2025 which was negative. Recent blood work from October 27 revealed a normal blood count with no anemia, normal electrolytes, and stable renal function with a creatinine of 1.17. His blood sugar was 96, hemoglobin A1c was normal, and alkaline phosphatase was 99. His PSA level was 1, and his B12, folic acid, and thyroid function were all within normal limits. A urinary test was also normal. Health Maintenance The patient's hypertension is well-controlled, and his recent lab results are reassuring. Plan is to continue monitoring and encourage a healthy lifestyle with adequate hydration, aiming for 6-8 glasses of water daily. He will continue to follow up with his bariatrics team for post-surgical care. Social History - Alcohol Use: The patient reports drinking wine approximately twice a week, though he sometimes abstains for a month at a time. - Tobacco Use: He denies smoking cigarettes. - Illicit Drug Use: He denies any recreational drug use. - Exercise: He states that he has not been exercising recently because of an injury. - Diet: The patient notes increased cravings for chocolate since his bariatric surgery and was advised on the importance of dietary control to prevent weight regain. - Hydration: He was advised to increase his water intake to 6-8 glasses per day, as he acknowledges not drinking enough water. Results - Labs (October 27): - Complete Blood Count: Normal, no anemia. - Comprehensive Metabolic Panel: Electrolytes normal; creatinine 1.17 (stable); blood sugar 96; alkaline phosphatase 99. - Hemoglobin A1c: Normal. - Prostate-Specific Antigen (PSA): 1. - Vitamin Levels: B12 and folic acid within normal limits. - Thyroid function: Within normal limits. - Urinalysis: Normal. - Tests and Diagnostics: - Cologuard (June 2025): Negative. [facility] Medical History Colon cancer screening Lumbar herniated disc Impaired glucose tolerance Hypercholesterolemia Insomnia GERD (gastroesophageal reflux disease) Obesity (BMI 30-39.9) Surgical History History of laminectomy History of arthroscopy of left knee H/O shoulder surgery Family History Father No problems noted. Mother No problems noted. Maternal Uncle Prostate cancer CAD (coronary artery disease) Family/Other High cholesterol Diabetes Maternal Grandfather Prostate cancer Social History (Updated 11/14/25 @ 10:54 by Noé Montaño MD) Housing: Apartment Alcohol intake: current Alcohol intake frequency: a few times a month Comment: once q 3 months 1-2 glasses, 1-2 wine 2x a week Patient Tobacco Use Status: Former Tobacco user Tobacco use type: Cigarette Years Smoked: stopped 18years old e-Cigarette/Vaping Use: Never Used Second Hand Smoke Exposure: No service: No Current occupational status: unemployed and disabled Cognitive needs: No Hearing needs: No Vision needs: Yes Questionnaire Thrive Questionnaire Date Thrive assessed: 05/22/25 I am a: Patient What is your living situation today?: I have a steady place to live Within the past 12 months, did the food you bought not last and you didn't have the money to get more?: Never true Within the past 12 months, did you worry whether your food would run out before you got money to buy more?: Never true Do you have trouble paying for medicines?: No Do you have trouble getting transportation to medical appointments?: No Do you have trouble paying your heating and electricity bill?: No Do you have trouble taking care of your child, family member or friend?: No Do you have trouble with day-to-day activities such as bathing, preparing meals, shopping, managing finances, etc.?: No Are you currently unemployed and looking for a job?: No Are you interested in more education?: Yes Currently or been in a relationship where the following occur: No concerns reported THRIVE Score: 0 CAITLIN-7 AMB Questionnaire CAITLIN-7 Date CAITLIN - 7 assessed: 02/08/25 Source: Developed by Drs. Jose Luis Campbell, Kathrin Biggs, Jaylen Ortiz and colleagues, with an educational raymond from [employer]. Review of Systems Narrative Review of Systems - General: Denies syncope. - Neurological: Denies passing out or feeling unstable while walking. - Respiratory: Denies waking up short of breath and denies chest pain. - Gastrointestinal: Reports dysphagia described as a sensation of food getting stuck with the first bite, but it is not worsening; he denies coughing while eating. - Reports constipation when taking Percocet but notes his bowel movements are otherwise fine. Const Denies poor appetite and Denies weakness Eyes Denies no additional complaints ENT Reports Normal hearing present, Denies dizziness, Denies nasal congestion, Denies tinnitus and Denies sore throat Card Denies chest pain, Denies syncope, Denies rapid heart rate and Denies dyspnea Resp Denies cough and Denies dyspnea GI Denies change in stool character, Reports constipation, Denies diarrhea, Denies nausea and Denies vomiting Denies dysuria and Denies urinary frequency Neuro Reports Normal hearing present, Denies confusion, Denies dizziness, Denies syncope and Denies weakness Psych Denies confusion Physical exam (Primary Care) Vital Signs: Last Vital Signs Pulse 72 11/14/25 10:18 BP 124/76 11/14/25 10:18 Pulse Ox 98 11/14/25 10:18 Oxygen Delivery Method Room Air 11/14/25 10:18 BMI result Body Mass Index 27.5 Tobacco/Smoking Status: Tobacco use Status Tobacco use date assessed 09/19/25 11/14/25 10:21 Patient Tobacco Use Status Former Tobacco user 11/14/25 10:54 Tobacco use type Cigarette 11/14/25 10:54 e-Cigarette/Vaping Use Never Used 11/14/25 10:54 Thrive Assessment: Date of Thrive Assessment Date Thrive assessed 05/22/25 11/14/25 10:21 Currently or been in a relationship where the following occur: No concerns reported Narrative Physical Exam General: Cooperative, healthy appearing, comfortable, no acute distress and well developed Orientation: Patient oriented x3 Limitations: No limitations Head: Normal to inspection Ears: Hearing grossly normal bilaterally Nose: Normal external nose present Face and sinus: Normal facial exam Eyes: Appearance normal, both eyes and all related structures Neck: Normal visual inspection and Yes full ROM Respiratory: Normal respiratory effort and able to speak in complete sentences. Clear to auscultation bilaterally Cardiovascular: Regular rate and rhythm. Normal S1 and S2 GI: Normal to inspection. Soft to palpation and nontender Skin: No rashes or lesions noted Neuro: Patient oriented x3 Extremities: Normal to inspection Const General: alert and awake; No confusion Orientation/consciousness: No confusion HENMT Other: R ear impacted cerumen , L TM intact Head: Yes normocephalic Ears: external ears normal Face and sinus: Yes normal facial exam Mouth: moist mucous membranes Throat: Yes tonsils normal Eyes Conjunctivae: conjunctivae normal Pupils: Equal, round and reactive pupils present and Pupil accommodation reflex normal Direct Ophthalmoscopy: normal light reflex Neck Neck: No lymphadenopathy Thyroid: Thyroid normal Chest Chest palpation & inspection: normal inspection of the chest Resp Effort & Inspection: normal respiratory effort and no audible wheezes Auscultation: clear to auscultation bilaterally, no crackles, no wheezes and lung sounds not diminished Cardio Rate: regular rate Rhythm: regular rhythm Peripheral pulses: radial pulses present and dorsalis pedis present GI Other: guaiac negative , no mass on the prostate Palpation (GI): no masses Auscultation: normal bowel sounds and normoactive bowel sounds Other: Mild tenderness on the R groin Male General Exam: Yes normal external exam Skin General skin exam: no rashes or lesions noted Rashes: no rashes Neuro General: deep tendon reflexes 2+ bilaterally and No confusion Cranial nerves: Yes Equal, round and reactive pupils present, Yes Midline tongue present, Yes Normal hearing present and Yes Ability to bilaterally elevate shoulders present Cognition (Neuro): normal cognition Gait exam (Neuro): Normal gait present Motor exam (neuro): 5/5 motor strength present throughout Deep tendon reflexes (DTR's): Right brachioradialis reflex intensity grade: 2+, Left brachioradialis reflex intensity grade: 2+, Right patellar reflex intensity grade: 2+ and Left patellar reflex intensity grade: 2+ Extrem General: No edema Coding Level of Care Code Est Pt Prev Care 40-64y(34186) Diagnoses Annual physical exam Z00.00 Status post sleeve gastrectomy Z90.3 Impaired glucose tolerance R73.02 Primary hypertension I10 Hypertension type: primary hypertension Hypercholesterolemia E78.00 Gastroesophageal reflux disease without esophagitis K21.9 Esophagitis presence: without esophagitis CKD (chronic kidney disease) stage 2, GFR 60-89 ml/min N18.2 Lumbar herniated disc M51.26 Impacted cerumen of right ear H61.21 Assessment & Plan Assessment & Plan (1) Annual physical exam: Code(s): Z00.00 - Encounter for general adult medical examination without abnormal findings Category: Medical Plan: Patient is advised to eat healthy, keep well hydrated, keep active and have adequate sleep. (2) Status post sleeve gastrectomy: Comment: 10/2024 Code(s): Z90.3 - Acquired absence of stomach [part of] Category: Surgical Plan: Continue to follow-up with bariatric (3) Impaired glucose tolerance: Code(s): R73.02 - Impaired glucose tolerance (oral) Category: Medical Plan: Resolved (4) Hypertension: Code(s): I10 - Essential (primary) hypertension Category: Medical Qualifiers: Hypertension type: primary hypertension Qualified Code(s): I10 - Essential (primary) hypertension Plan: Continue with blood pressure medication. Decrease salt intake and exercise. this has resolved all (5) Hypercholesterolemia: Code(s): E78.00 - Pure hypercholesterolemia, unspecified Category: Medical Plan: Avoid fried foods, chicken skin, eggs, butter margarine, pastries and meat. Be it pork or beef they have a lot of cholesterol, this has resolved also (6) GERD (gastroesophageal reflux disease): Code(s): K21.9 - Gastro-esophageal reflux disease without esophagitis Category: Medical Qualifiers: Esophagitis presence: without esophagitis Qualified Code(s): K21.9 - Gastro-esophageal reflux disease without esophagitis Plan: Avoid the foods that causes that usually spicy foods, tomato products, juices, coffee, soda and foods that your sensitive to. After eating do not lie down, allow 3-4 hours before in lie down. And keep the head of bed above 30 degrees to avoid the acid from going up. (7) CKD (chronic kidney disease) stage 2, GFR 60-89 ml/min: Code(s): N18.2 - Chronic kidney disease, stage 2 (mild) Category: Medical Plan: Continue to monitor, avoid NSAIDs, keep well hydrated (8) Lumbar herniated disc: Comment: L5-S1 broad-based herniated disc Dr. Alberts 06/06/2010, work related Code(s): M51.26 - Other intervertebral disc displacement, lumbar region Category: Medical Plan: Narcotic pain meds: Is being prescribed with the understanding that these medications are potentially addictive and should be used only when absolutely necessary and must always be secured. Any remaining pills should be safely disposed off appropriately. Patient is advised that narcotics can impaired judgment and one should not drive or operate heavy machinery while taking these medications. Never share these medications with anybody and do not leave them unattended. They will not be replaced under any circumstances. (9) Impacted cerumen of right ear: Code(s): H61.21 - Impacted cerumen, right ear Category: Medical Plan Plan Patient was informed and verbally consented to the use of an ambient scribe for clinic note documentation during this visit. 1. Chronic Pain/Lumbar Radiculopathy A refill for lidocaine patches will be sent as requested. The patient reports increased use of Percocet, which is causing constipation. He was counseled to avoid NSAIDs like ibuprofen due to his history of kidney disease. 2. Chronic Kidney Disease His renal function is stable with a creatinine of 1.17. The plan includes continued monitoring, maintaining good hydration, and avoiding NSAIDs. 3. Gerd/Dysphagia The patient notes some dysphagia with the first bite of food, though his use of omeprazole has resolved. He is advised to continue chewing food thoroughly and eating small bites. 4. Opioid-Induced Constipation The patient's constipation is related to increased Percocet use. He has a prescription for docusate to use as needed and can request a refill via message when he runs low. Discussion Notes I reviewed the patient's recent lab work from October, noting that his blood count, electrolytes, and renal function are stable. We confirmed his blood sugar, HgbA1c, PSA, vitamin levels, and thyroid function are all reassuringly normal. We discussed the importance of maintaining his weight loss post-sleeve gastrectomy and managing dietary habits, especially with his reported cravings for chocolate. I emphasized the need for adequate hydration, recommending 6-8 glasses of water daily. We also discussed his lack of recent exercise and his alcohol consumption. I advised him to be cautious during the current season with flu, COVID, and RSV circulating. A refill for his lidocaine patches will be provided. Patient Instructions - Please continue to follow up with your bariatric surgery team. - Work on maintaining the weight you have lost by managing your diet and watching for cravings. - Drink plenty of fluids, aiming for 6 to 8 glasses of water daily. - A refill for your lidocaine patches will be sent to your pharmacy. - You can send a message when you need a refill for your stool softener (docusate). - Continue taking your Vitamin D and multivitamins as recommended. - Be careful to chew your food well to prevent issues with swallowing. - Avoid using NSAID medications like ibuprofen (Advil) or naproxen (Aleve) because of your kidney history. - Take precautions to stay healthy, as flu, COVID, and RSV are currently spreading.
--- OUTSIDE RECORDS SUMMARY | 2025-11-14 12:46 | XMS_ITS | Clinical Summary ---
Author Organization [facility] Address [address] [facility] [address] [place] [address] Phone Care Team Providers Care Mold Cooler Name Role Phone Noé Montaño MD Primary Care Provider [phone] Allergies Active Allergy Reactions Criticality Noted Date [...] of 3 - 19+ 3-dose series) 01/24/1996 Influenza Vaccine (#1) 2025 Pneumococcal Vaccine: Peds ( 0 to 5 Years) and At-Risk Patients (6 to 49 Years) Aged Out No longer eligible b ased on patient's age to complete this topic Insurance ([id number]) [place] [id number] ([id number]) Care Teams Mold Cooler Relationship Specialty Start Date End Date Noé Montaño MD [facility] [address] [employer] [place] PCP - General 11/26/20
--- OUTSIDE RECORDS SUMMARY | 2025-11-14 12:46 | XMS_ITS | Patient Health Record ---
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 Caffeine: 2-3 cups per day Section Notes: Nonsmoker > 10 yrs; no sig a lcohol Problems Problem Type SNOMED Code ICD Code Onset Dates Problem Status W/U Status Risk Notes Problem Heartburn (96510109) Heartburn (787.1) Active confirmed Problem Gastroesophageal reflux disease (328243731) GERD (gastroesopha geal reflux disease) (530.81) Active confirmed Plan Of Treatment Future Test Test Name Order Date UPPER GI ENDOSCOPY 02/03/2014 Insurance Providers Payer Name Payer Address Payer Phone Subscriber Number Group Number Insured Name Patient Relationship to Insured Coverage Start Date Coverage End Date [facility] [address] [place] [address] [phone] [id number] KEYUR HOLLAND Self - patient is the insured Medical (General) History Medical History History ICD Code Hypertension-on no meds Denies NV,DM,CVA,Lung disease,renal dise ase GERD Depression--off meds Surgical History Surgery Date(Month/Year) shoulder surgery knee surgery back surgery
--- OUTSIDE RECORDS SUMMARY | 2025-11-14 12:46 | XMS_ITS | Clinical Summary ---
Author Organization [facility] Address [address] [place] [address] Phone Care Team Providers Care Transmission Line Engineer Name Role Phone Noé Montaño MD Primary Care Provider [phone] Allergies Active Allergy Reactions Criticality Noted Date Comments Lactose GI intolerance Low 09/28/2024 Medications oxyCODONE-acetami nophen (PERCOCET) 5-325 mg per tablet Take 1 [...] Active polyethylene glycol (PEG) 17 gram/dose oral powderIndications :Constipation, unspecified constipation type DISSOLVE 17 GRAMS IN 8 OZ OF FLUID LIQUID DRINK DAILY DIRECTED 510 g 4 Active cholecalciferol (VITAMIN D-3) 1,250 mcg (50,000 unit) capsule TAKE 1 CAPSULE BY MOUTH ONE TIME PER WEEK 8 capsule 5 Active Active Problems Problem Noted Date Diagnosed [...] - 08/25/2025 11:59 PM EDT Hospital Encounter [facility] Ultrasound [address] [place] [address] Overweight (BMI 25.0-29.9); Groin pain, right Discharge Disposition: Home or Self Care 08/22/2025 9:15 AM EDT Office Visit Bariatric Surgery - [place] [address] [facility] [address] [place] [address] Mandi Reddy PA Overweight (BMI [...] Chronic pain disorder Thoracic spinal cord injury ([facility] V24, [facility] V28) Lumbar herniated disc 2 DISCS Joint pain Achilles rupture B Acute pain in joint LUMBAR AND B SHOULDERS Class 1 obesity with body ma ss index (BMI) of 31.0 to 31.9 in adult 09/28/2024 Social History Tobacco Use Types Packs/Day Years Used Date Smoking Tobacco: Former Cigarettes 0 Q uit: 1993 Passive Smoke Exposure: Never [...] Orientation Straight 09/21/2024 9: 08 AM EST Last Filed Vital Signs Vital Sign Reading [...] AM EST Office Visit Bariatric Surgery - [address] [place] [phone] Mandi Reddy [address] [phone] Health Maintenance Due Date Last Done Comments Colorectal Cancer Screening: Colonoscopy 1975 Drug Screen 1977 Non-Opioid Controlled Substance Agreement 1977 Hepatitis B Vaccines (1 of 3 [...] Signed Date: 08/28/2025 17:00 ET Workstation ID: [id number] Transcribed By: Self Edit Transcribed Date: 08/28/2025 [...] Signed Date: 08/28/2025 17:00 ET Workstation ID: [id number] Transcribed By: Self Edit Transcribed Date: 08/28/2025 16:59 ET us Mandi SANTO IMG US PROCEDURES Final Resu lt * Comprehensive metabolic panel (04/17/2025 2:15 PM EDT) Sodium 141 133 - 145 mmol/L LAB CHEMISTRY METHOD 04/17/2025 7:30 PM EDT [facility] Potassium 4.5 3.5 - 5.5 mmol/L LAB CHEMISTRY METHOD 04/17/2025 7:30 PM [facility] Chloride 106 96 - 110 mmol/L LAB CHEMISTRY METHOD 04/17/2025 7:30 PM [facility] CO2 28 21 - 32 mmol/L LAB CHEMISTRY METHOD 04/17/2025 7:30 PM [facility] Anion Gap 7 3 - 11 LAB CHEMISTRY METHOD 04/17/2025 7:30 PM [facility] Glucose 94 70 - 100 mg/dL LAB CHEMISTRY METHOD 04/17/2025 7:30 PM [facility] BUN 14 5 - 25 mg/dL LAB CHEMISTRY METHOD 04/17/2025 7:30 PM [facility] Creatinine 1.18 0.70 - 1.30 mg/dL LAB CHEMISTRY METHOD 04/17/2025 7:30 PM [facility] eGFR 76 >=60 mL/min/1. 73m2 LAB CHEMISTRY METHOD 04/17/2025 7:30 PM [facility] Comment:Calculation based on the Chronic Kidney Disease Epidemiology Collaboration (CKD-EPI) equation refit without adjustment for race. BUN/Creatinine Ratio 11.9 LAB CHEMISTRY METHOD 04/17/2025 7:30 PM [facility] Calcium 9.1 8.5 - 10.5 mg/dL LAB CHEMISTRY METHOD 04/17/2025 7:30 PM [facility] AST (SGOT) 18 10 - 42 unit/L LAB CHEMISTRY METHOD 04/17/2025 7:30 PM [facility] ALT (SGPT) 27 10 - 60 unit/L LAB CHEMISTRY METHOD 04/17/2025 7:30 PM [facility] Alkaline Phosphatase 104 42 - 121 unit/L LAB CHEMISTRY METHOD 04/17/2025 7:30 PM [facility] Total Protein 7.0 6.0 - [...] Final R esult [facility] [address] [place] [address], * (ABNORMAL) Lipid panel (11/26/2023) LDL/HDL Ratio 5(A) 0 - 4 Triglycerides 292(A) 0 - 150 mg/dL Cholesterol 252(A) 0 - 200 mg/dL HDL 51 >=40 mg/dL LDL Cholesterol 143(A) 0 - 100 mg/dL Blood Venous blood specimen / Unknown Historical Provider LAB BLOOD ORDERABLES Yancy l Result from Last 3 Months or Most Recently Relevant to Health Maintenance Insurance [facility] MEDICARE Member Subscriber Plan / Payer (Ef fective 2020-Present) Name:ANUJ ATKINS Relation to Subscriber:Self Name:Anuj Atkins Payer ID:[id number] Group ID:[id number] Type:Not on file Address: [place] [facility] [place] [phone] Advance Directives * Full Code - Default [...] currently active code status orders. Care Teams Transmission Line Engineer Relationship Specialty Start Date End Date Noé Montaño MD [address] [place] [address] Dr [address] [facility] [place] [address] PCP - General 04/03/23
== END 2025-11-14 11:19 | disposition home or self-care (01) ==
LOC: HO.HMCH 09:51
PROVIDERS: PCP Internal Medicine; Visit Provider Internal Medicine
DX: Z00.00 Encounter for general adult medical examination without abnormal findings (principal); Z90.3 Acquired absence of stomach [part of]; R73.02 Impaired glucose tolerance (oral); I12.9 Hypertensive chronic kidney disease with stage 1 through stage 4 chronic kidney disease, or unspecified chronic kidney disease; E78.00 Pure hypercholesterolemia, unspecified; K21.9 Gastro-esophageal reflux disease without esophagitis; N18.2 Chronic kidney disease, stage 2 (mild); M51.26 Other intervertebral disc displacement, lumbar region; H61.21 Impacted cerumen, right ear

== ENCOUNTER → 2025-11-14 09:50 | Outpatient (BNVA) | payer OTHER, SELFPAY | PROVIDERS: PCP Internal Medicine; Visit Provider Internal Medicine | DX: Z00.00 Encounter for general adult medical examination without abnormal findings (principal); M51.16 Intervertebral disc disorders with radiculopathy, lumbar region; I12.9 Hypertensive chronic kidney disease with stage 1 through stage 4 chronic kidney disease, or unspecified chronic kidney disease; N18.32 Chronic kidney disease, stage 3b; K21.9 Gastro-esophageal reflux disease without esophagitis; H61.21 Impacted cerumen, right ear; K59.03 Drug induced constipation; T40.2X5A Adverse effect of other opioids, initial encounter | CPT/HCPCS: 99396 ==